=== PATIENT | female | born 1975 | race Caucasian/White ===

== ENCOUNTER 2016-06-25 08:18 | Emergency (ER) | payer OTHER ==
[2016-06-25 08:28] VITALS: BP 102/58; TEMP 97.7; O2SAT 90
[2016-06-25] MEDS ORDERED: methylPREDNISolone SODIUM SUC 125 MG/2 ML VIAL IV ONE (08:36)
[2016-06-25] MEDS ORDERED: methylPREDNISolone SODIUM SUC 125 MG/2 ML VIAL ONE (08:36)
--- NOTE | 2016-06-25 08:49 | ED.PDOC ---
History of Present Illness - General Chief Complaint: Respiratory Problem Stated Complaint: shortness of breath, cough Time Seen by Provider: 06/25/16 08:39 Source: patient Exam Limitations: no limitations - History of Present Illness Initial Comments: Patient presents with increasing dyspnea over the past three days. Two days ago she was diagnosed with pneumonia and started on cephalexin. She says she has not gotten better. Her dyspnea became worse this morning so she called EMS. She says she has cough productive of green sputum. No hemoptysis. She doesn't think she has had a fever. Smokes just less than a pack of cigarettes per day and continues to smoke. No chest pain. No cardiac history nor diabetes. No hx of bipedal edema. No other complaints. Timing/Duration: other - 3 days Severity: moderate Improving Factors: nothing Worsening Factors: nothing Associated Symptoms: cough, shortness of breath Allergies/Adverse Reactions: Allergies Aspirin Allergy (Severe, Verified 06/25/16 08:29) Anaphylaxis Home Medications: Ambulatory Orders Fluoxetine HCl [Prozac] 40 mg PO QAM 11/21/15 Levothyroxine Sodium [Synthroid] 0.125 mg PO 0700 11/21/15 Trazodone HCl 100 mg PO BEDTIME 11/21/15 Gabapentin 600 mg PO TID 01/17/16 Hydroxyzine Pamoate [Vistaril] 50 mg PO Q4H 03/14/16 Quetiapine Fumarate [Seroquel] 400 mg PO BID 03/14/16 Cyclobenzaprine HCl [Flexeril] 10 mg PO TID PRN 05/12/16 Docusate Sodium 100 mg PO DAILY 05/12/16 HYDROcodone 10MG/APAP 325MG [[place] 10/325] 1 ea PO Q4H PRN 05/12/16 Linaclotide [Linzess] 145 mcg PO DAILY 05/12/16 Promethazine HCl 25 mg FL Q6H PRN 05/12/16 Cephalexin Monohydrate [Keflex] 500 mg PO BID 06/25/16 Review of Systems - Review of Systems Constitutional: States: no symptoms reported EENTM: States: no symptoms reported Respiratory: States: see HPI Cardiology: States: no symptoms reported Gastrointestinal/Abdominal: States: no symptoms reported Genitourinary: States: no symptoms reported Musculoskeletal: States: no symptoms reported Skin: States: no symptoms reported Neurological: States: no symptoms reported Endocrine: States: no symptoms reported Hematologic/Lymphatic: States: no symptoms reported Past Medical History (General) - Patient Medical History Hx Seizures: No Hx Stroke: No Hx Dementia: No Hx Asthma: No Hx of COPD: No Hx Cardiac Disorders: No Hx Congestive Heart Failure: No Hx Pacemaker: No Hx Hypertension: No Hx Thyroid Disease: No Hx Diabetes: No Hx Gastroesophageal Reflux: No Hx Renal Disease: No Hx Cancer: No Hx of HIV: No Hx Hepatitis C: No Hx MRSA: No MRSA Source:: Wound - Vaccination History Hx Tetanus, Diphtheria Vaccination: No Hx Influenza Vaccination: Yes Hx Pneumococcal Vaccination: No - Social History Hx Tobacco Use: Yes Hx Chewing Tobacco Use: No Hx Alcohol Use: No Hx Substance Use: Yes Hx Substance Use Treatment: No Hx Depression: Yes Hx Physical Abuse: No Hx Emotional Abuse: No Hx Suspected Abuse: No - Female History Patient : No Family Medical History - Family History Mother Family History: No Known Name: Shari Dickey Cheestephaniakehinde Age (years): 66 Living Status: Still Living Hx Family Asthma: No Hx Family Congestive Heart Failure: No Hx Family Hypertension: No Hx Family Stroke: No Hx Cardiac Disease: No Hx Family Diabetes: No Hx Family Cancer: No Hx Family;Other: Depression Physical Exam - Physical Exam General Appearance: Alert Eye Exam: bilateral normal Ears, Nose, Throat: normal ENT inspection Neck: non-tender, full range of motion, supple Respiratory: other - distant breath sounds, occasional scattered expiratory wheezes, no accessory muscle use Cardiovascular/Chest: regular rate, rhythm Gastrointestinal/Abdominal: normal bowel sounds, non tender, soft Extremity: no pedal edema Skin Exam: normal color Lymphatic: no adenopathy Progress - Progress Progress: 06/25/16 10:56 CXR showed peribronchial thickening. Duonebs x one resolved the dyspnea. Normal wbc. Unremarkable bnp. Negative troponin. Patient has nebulizer at home and will use q2-4 hours prn. Continue to take home medications. Departure - Departure Clinical Impression: Dyspnea Disposition: Discharge to Home or Self Care Condition: Good Departure Forms: ED Discharge - Pt. Copy, Patient Portal Self Enrollment Diet: resume usual diet Activity: increase activity as tolerated Home Medications: Ambulatory Orders Fluoxetine HCl [Prozac] 40 mg PO QAM 11/21/15 Levothyroxine Sodium [Synthroid] 0.125 mg PO 0700 11/21/15 Trazodone HCl 100 mg PO BEDTIME 11/21/15 Gabapentin 600 mg PO TID 01/17/16 Hydroxyzine Pamoate [Vistaril] 50 mg PO Q4H 03/14/16 Quetiapine Fumarate [Seroquel] 400 mg PO BID 03/14/16 Cyclobenzaprine HCl [Flexeril] 10 mg PO TID PRN 05/12/16 Docusate Sodium 100 mg PO DAILY 05/12/16 HYDROcodone 10MG/APAP 325MG [[place] 10/325] 1 ea PO Q4H PRN 05/12/16 Linaclotide [Linzess] 145 mcg PO DAILY 05/12/16 Promethazine HCl 25 mg FL Q6H PRN 05/12/16 Cephalexin Monohydrate [Keflex] 500 mg PO BID 06/25/16 Additional Instructions: Continue your current medications. Continue the antibiotic that was prescribe for you. You may use your nebulizer every 2-4 hours as needed for shortness of breath. Return to your regular doctor or the ER if symptoms worsen or have not resolved in five days.
[2016-06-25] MEDS ORDERED: IPRATROPIUM/ALBUTEROL 3 ML VIAL NEB ONE (08:50)
[2016-06-25] MEDS ORDERED: SODIUM CHLORIDE 0.9% 250ML 250 ML IVS ONE (08:51)
--- NOTE | 2016-06-25 09:17 | RAD ---
EXAM DESCRIPTION: XR CHEST 1 VIEW CLINICAL HISTORY: 41 y/o F, cough, difficulty breathing, O2 sat 90% COMPARISON: 01/20/2016. TECHNIQUE: Frontal radiograph of the chest. FINDINGS: There is mild peribronchial thickening. The heart is normal in size. There is no pneumothorax or pleural effusion. Spinal stimulator leads are noted. IMPRESSION: Mild peribronchial thickening. Electronically signed by: Juan Pablo Montemayor MD 06/25/2016 09:15
== END 2016-06-25 11:04 | disposition home or self-care (01) ==
LOC: ER 08:18
DX: R06.00 Dyspnea, unspecified (principal); F17.210 Nicotine dependence, cigarettes, uncomplicated; F32.9 Major depressive disorder, single episode, unspecified; Z88.6 Allergy status to analgesic agent; Z79.899 Other long term (current) drug therapy
CPT/HCPCS: 36415; 71010; 80053; 82550; 82553; 83605; 83880; 84436; 84443; 84484; 85025; 85379; 87040; J2930; J7050; J7620

== ENCOUNTER → 2016-08-14 | Outpatient (CLI) | payer OTHER | END | disposition home or self-care (01) | LOC: YCFC.O 10:59 | PROVIDERS: ATTEND Anesthesiology Pain Medicine | DX: Z79.891 Long term (current) use of opiate analgesic (principal) ==

== ENCOUNTER → 2016-08-21 | Outpatient (CLI) | payer OTHER | END | disposition home or self-care (01) | LOC: GMAM 11:05 | PROVIDERS: ATTEND Family Medicine | DX: E03.9 Hypothyroidism, unspecified (principal) ==

== ENCOUNTER 2016-09-07 13:33 | Emergency (ER) | payer OTHER ==
[2016-09-07 14:16] VITALS: BP 89/63; TEMP 97.8; O2SAT 94
[2016-09-07] MEDS ORDERED: KETOROLAC TROMETHAMINE INJ 30 MG/ML VIAL IM ONE (14:31)
--- NOTE | 2016-09-07 14:47 | ED.PDOC ---
History of Present Illness - General Chief Complaint: Back Pain or Injury Stated Complaint: low back pain Time Seen by Provider: 09/07/16 14:15 Source: patient Exam Limitations: no limitations - History of Present Illness Initial Comments: Patient presents with acute on chronic low back pain. Pain is on the right lumbar area with radiation down the right leg. Worse with movement, better with rest. Shooting in nature. Multiple previous episodes. Patient is on a fentanyl patch and flexeril. She wants tramadol and "a shot of something". No other complaints. Timing/Duration: changing over time, intermittent Severity: moderate Improving Factors: rest Worsening Factors: movement Associated Symptoms: denies symptoms Allergies/Adverse Reactions: Allergies Aspirin Allergy (Severe, Verified 06/25/16 08:29) Anaphylaxis Home Medications: Ambulatory Orders Fluoxetine HCl [Prozac] 40 mg PO QAM 11/21/15 Levothyroxine Sodium [Synthroid] 0.137 mg PO 0700 11/21/15 Trazodone HCl 100 mg PO BEDTIME 11/21/15 Quetiapine Fumarate [Seroquel] 400 mg PO BID 03/14/16 Aripiprazole [Abilify] 10 mg PO DAILY 09/07/16 Fentanyl [Duragesic] 12 mcg TD Q72H 09/07/16 Pregabalin [Lyrica] 200 mg PO BID 09/07/16 Review of Systems - Review of Systems Constitutional: States: no symptoms reported EENTM: States: no symptoms reported Respiratory: States: no symptoms reported Cardiology: States: no symptoms reported Gastrointestinal/Abdominal: States: no symptoms reported Genitourinary: States: no symptoms reported Musculoskeletal: States: see HPI Skin: States: no symptoms reported Neurological: States: see HPI Endocrine: States: no symptoms reported Past Medical History (General) - Patient Medical History Hx Seizures: No Hx Stroke: No Hx Dementia: No Hx Asthma: No Hx of COPD: No Hx Cardiac Disorders: No Hx Congestive Heart Failure: No Hx Pacemaker: No Hx Hypertension: No Hx Thyroid Disease: No Hx Diabetes: No Hx Gastroesophageal Reflux: No Hx Renal Disease: No Hx Cancer: No Hx of HIV: No Hx Hepatitis C: No Hx MRSA: No MRSA Source:: Wound - Vaccination History Hx Tetanus, Diphtheria Vaccination: No Hx Influenza Vaccination: Yes Hx Pneumococcal Vaccination: No - Social History Hx Tobacco Use: Yes Hx Chewing Tobacco Use: No Hx Alcohol Use: No Hx Substance Use: Yes Hx Substance Use Treatment: No Hx Depression: Yes Hx Physical Abuse: No Hx Emotional Abuse: No Hx Suspected Abuse: No - Female History Patient : No Family Medical History - Family History Mother Family History: No Known Name: Shari Murdock Age (years): 66 Living Status: Still Living Hx Family Asthma: No Hx Family Congestive Heart Failure: No Hx Family Hypertension: No Hx Family Stroke: No Hx Cardiac Disease: No Hx Family Diabetes: No Hx Family Cancer: No Hx Family;Other: Depression Physical Exam - Physical Exam General Appearance: Alert Ears, Nose, Throat: normal ENT inspection Neck: non-tender, full range of motion, supple Respiratory: lungs clear Cardiovascular/Chest: normal peripheral pulses, regular rate, rhythm Gastrointestinal/Abdominal: normal bowel sounds, non tender, soft Back Exam: other - Staight and cross leg raises positive. Right lower back TTP but spinous process NTTP. Heel walking worsens pain. Progress - Progress Progress: 09/07/16 14:49 Toradol 30 mg IM x one. Departure - Departure Clinical Impression: Low back pain Disposition: Discharge to Home or Self Care Condition: Good Departure Forms: ED Discharge - Pt. Copy, Patient Portal Self Enrollment Diet: resume usual diet Activity: increase activity as tolerated Home Medications: Ambulatory Orders Fluoxetine HCl [Prozac] 40 mg PO QAM 11/21/15 Levothyroxine Sodium [Synthroid] 0.137 mg PO 0700 11/21/15 Trazodone HCl 100 mg PO BEDTIME 11/21/15 Quetiapine Fumarate [Seroquel] 400 mg PO BID 03/14/16 Aripiprazole [Abilify] 10 mg PO DAILY 09/07/16 Fentanyl [Duragesic] 12 mcg TD Q72H 09/07/16 Pregabalin [Lyrica] 200 mg PO BID 09/07/16 Additional Instructions: Follow up with your primary care physician for further pain management.
== END 2016-09-07 15:08 | disposition home or self-care (01) ==
LOC: ER 13:33
DX: M54.5 Low back pain (principal); Z87.891 Personal history of nicotine dependence; Z88.6 Allergy status to analgesic agent; Z79.899 Other long term (current) drug therapy

== ENCOUNTER → 2016-10-04 | Outpatient (CLI) | payer OTHER | END | disposition home or self-care (01) | LOC: GMAM 17:25 | PROVIDERS: ATTEND Family Medicine | DX: E03.9 Hypothyroidism, unspecified (principal) ==

== ENCOUNTER 2016-10-08 17:10 | Emergency (ER) | payer OTHER ==
[2016-10-08 17:26] VITALS: BP 107/74; TEMP 98.4; O2SAT 90
[2016-10-08] MEDS ORDERED: levoFLOXacin 500 MG TAB PO ONE (17:37)
--- NOTE | 2016-10-08 17:40 | ED.PDOC ---
History of Present Illness - General Chief Complaint: Skin/Abrasion/Tear Stated Complaint: boil Time Seen by Provider: 10/08/16 17:13 Source: patient, RN notes reviewed, Vital Signs reviewed Exam Limitations: no limitations - History of Present Illness Initial Comments: Patient with boil in her right groin off and on for months. She just finished 10 days of Bactrim. Concerned it needs to be drained. Timing/Duration: intermittent Severity: moderate Location: genitalia Improving Factors: nothing Worsening Factors: movement Associated Symptoms: swelling/mass/lumps Allergies/Adverse Reactions: Allergies Aspirin Allergy (Severe, Verified 10/08/16 17:26) Anaphylaxis Home Medications: Ambulatory Orders Fluoxetine HCl [Prozac] 40 mg PO QAM 11/21/15 Levothyroxine Sodium [Synthroid] 0.137 mg PO 0700 11/21/15 Trazodone HCl 100 mg PO BEDTIME 11/21/15 Quetiapine Fumarate [Seroquel] 400 mg PO BID 03/14/16 Aripiprazole [Abilify] 10 mg PO DAILY 09/07/16 Fentanyl [Duragesic] 12 mcg TD Q72H 09/07/16 Pregabalin [Lyrica] 200 mg PO BID 09/07/16 Levofloxacin [Levaquin] 500 mg PO DAILY #7 tab 10/08/16 Morphine Sulfate [Morphine Sulfate ER] 30 mg PO BID 10/08/16 Tylenol W/Codeine #4 60 - 300 mg PO BID 10/08/16 Review of Systems - Review of Systems Constitutional: States: no symptoms reported Genitourinary: States: see HPI, pain Skin: States: see HPI All other Systems: No Change from Baseline Past Medical History (General) - Patient Medical History Hx Seizures: No Hx Stroke: No Hx Dementia: No Hx Asthma: No Hx of COPD: No Hx Cardiac Disorders: No Hx Congestive Heart Failure: No Hx Pacemaker: No Hx Hypertension: No Hx Thyroid Disease: No Hx Diabetes: No Hx Gastroesophageal Reflux: No Hx Renal Disease: No Hx Cancer: No Hx of HIV: No Hx Hepatitis C: No Hx MRSA: No MRSA Source:: Wound Surgical History: no surgical history - Vaccination History Hx Tetanus, Diphtheria Vaccination: No Hx Influenza Vaccination: Yes Hx Pneumococcal Vaccination: No Immunizations Up to Date: Yes - Social History Hx Tobacco Use: Yes Hx Chewing Tobacco Use: No Hx Alcohol Use: Yes Hx Substance Use: Yes Hx Substance Use Treatment: No Hx Depression: Yes Feels Threatened In Home Enviroment: No Feels Threatened In a Relationship: No Hx Physical Abuse: No Hx Emotional Abuse: No Hx Suspected Abuse: No - Female History Patient is a Female of Child Bearing Age (10 -59 yrs old): Yes Patient : No Family Medical History - Family History Mother Family History: No Known Name: Shari Murdock Age (years): 66 Living Status: Still Living Hx Family Asthma: No Hx Family Congestive Heart Failure: No Hx Family Hypertension: No Hx Family Stroke: No Hx Cardiac Disease: No Hx Family Diabetes: No Hx Family Cancer: No Hx Family;Other: Depression Physical Exam - Physical Exam General Appearance: Alert, Comfortable, No apparent distress, Well Developed, Well Groomed, Well Hydrated, Well Nourished Cardiovascular/Chest: no edema Respiratory: no respiratory distress Neurologic: alert, normal mood/affect, oriented x 3 Skin Exam: warm/dry, normal color Skin Problem Location: other - R groin Skin Character: erythema, tenderness, thickening, warm, other - Right groin: ~ dime sized area of erythema, tenderness and induration with mild surrounding erythema. No fluctuane or abscess appreciated. Lymphatic: no adenopathy Progress - EKG/XRAY/CT CT Ordered: No Departure - Departure Clinical Impression: Cellulitis of groin, right Time of Disposition: 17:43 Disposition: Discharge to Home or Self Care Condition: Good Departure Forms: ED Discharge - Pt. Copy, Patient Portal Self Enrollment Instructions: DI for Cellulitis -- Adult Diet: resume usual diet Activity: increase activity as tolerated Referrals: Venancio Santana MD [Primary Care Provider] - 1-2 Weeks Prescriptions: Levofloxacin [Levaquin] 500 mg PO DAILY #7 tab Home Medications: Ambulatory Orders Fluoxetine HCl [Prozac] 40 mg PO QAM 11/21/15 Levothyroxine Sodium [Synthroid] 0.137 mg PO 0700 11/21/15 Trazodone HCl 100 mg PO BEDTIME 11/21/15 Quetiapine Fumarate [Seroquel] 400 mg PO BID 03/14/16 Aripiprazole [Abilify] 10 mg PO DAILY 09/07/16 Fentanyl [Duragesic] 12 mcg TD Q72H 09/07/16 Pregabalin [Lyrica] 200 mg PO BID 09/07/16 Levofloxacin [Levaquin] 500 mg PO DAILY #7 tab 10/08/16 Morphine Sulfate [Morphine Sulfate ER] 30 mg PO BID 10/08/16 Tylenol W/Codeine #4 60 - 300 mg PO BID 10/08/16 Additional Instructions: Hot soaks/compresses 3-5X/day
== END 2016-10-08 17:56 | disposition home or self-care (01) ==
LOC: ER 17:10
DX: L03.314 Cellulitis of groin (principal); Z88.6 Allergy status to analgesic agent; Z79.899 Other long term (current) drug therapy; Z87.891 Personal history of nicotine dependence

== ENCOUNTER → 2016-10-11 | Outpatient (CLI) | payer OTHER | END | disposition home or self-care (01) | LOC: GMAM 16:48 | PROVIDERS: ATTEND Family Medicine | DX: L02.91 Cutaneous abscess, unspecified (principal) ==

== ENCOUNTER 2016-10-15 17:59 | Inpatient (IN) | payer OTHER ==
[2016-10-15] MEDS ORDERED: IPRATROPIUM/ALBUTEROL 3 ML VIAL NEB ONE (18:24)
[2016-10-15] MEDS ORDERED: ACETAMINOPHEN 500 MG TAB PO ONE (18:24)
--- NOTE | 2016-10-15 18:28 | ED.PDOC ---
History of Present Illness - General Chief Complaint: Respiratory Problem Stated Complaint: difficulty breathing Time Seen by Provider: 10/15/16 18:23 Source: patient, RN notes reviewed, Vital Signs reviewed, EMS Exam Limitations: no limitations - History of Present Illness Initial Comments: Patient comes in with c/o not being able to breath because her lungs hurt. She is concerned she has pneumonia again. Symptoms started last night. EMS reported O2 sat of 89% on room air, improved with O2 and Xopenex treatment. Timing/Duration: 24 hours Severity: moderate Activities at Onset: none Possible Cause: unknown cause Improving Factors: nothing Worsening Factors: nothing Associated Symptoms: cough, fever, weakness, wheezing Allergies/Adverse Reactions: Allergies Aspirin Allergy (Severe, Verified 10/08/16 17:26) Anaphylaxis Home Medications: Ambulatory Orders Fluoxetine HCl [Prozac] 40 mg PO QAM 11/21/15 Levothyroxine Sodium [Synthroid] 0.137 mg PO 0700 11/21/15 Trazodone HCl 100 mg PO BEDTIME 11/21/15 Quetiapine Fumarate [Seroquel] 400 mg PO BID 03/14/16 Aripiprazole [Abilify] 10 mg PO DAILY 09/07/16 Fentanyl [Duragesic] 12 mcg TD Q72H 09/07/16 Pregabalin [Lyrica] 200 mg PO BID 09/07/16 Levofloxacin [Levaquin] 500 mg PO DAILY #7 tab 10/08/16 Morphine Sulfate [Morphine Sulfate ER] 30 mg PO BID 10/08/16 Tylenol W/Codeine #4 60 - 300 mg PO BID 10/08/16 Review of Systems - Review of Systems Constitutional: States: chills, fever, malaise EENTM: States: no symptoms reported Respiratory: States: see HPI, cough, short of breath, wheezing Cardiology: States: no symptoms reported Gastrointestinal/Abdominal: States: no symptoms reported Musculoskeletal: States: no symptoms reported Skin: States: no symptoms reported Neurological: States: no symptoms reported All other Systems: No Change from Baseline Past Medical History (General) - Patient Medical History Hx Seizures: No Hx Stroke: No Hx Dementia: No Hx Asthma: No Hx of COPD: No Hx Cardiac Disorders: No Hx Congestive Heart Failure: No Hx Pacemaker: No Hx Hypertension: No Hx Thyroid Disease: No Hx Diabetes: No Hx Gastroesophageal Reflux: No Hx Renal Disease: No Hx Cancer: No Hx of HIV: No Hx Hepatitis C: No Hx MRSA: No MRSA Source:: Wound - Vaccination History Hx Tetanus, Diphtheria Vaccination: No Hx Influenza Vaccination: Yes Hx Pneumococcal Vaccination: No - Social History Hx Tobacco Use: Yes Hx Chewing Tobacco Use: No Hx Alcohol Use: Yes Hx Substance Use: Yes Hx Substance Use Treatment: No Hx Depression: Yes Hx Physical Abuse: No Hx Emotional Abuse: No Hx Suspected Abuse: No - Female History Patient is a Female of Child Bearing Age (10 -59 yrs old): No Patient : No Family Medical History - Family History Mother Family History: No Known Name: Shari Murdock Age (years): 66 Living Status: Still Living Hx Family Asthma: No Hx Family Congestive Heart Failure: No Hx Family Hypertension: No Hx Family Stroke: No Hx Cardiac Disease: No Hx Family Diabetes: No Hx Family Cancer: No Hx Family;Other: Depression Physical Exam - Physical Exam General Appearance: Alert, Ill Appearing, Well Developed, Well Groomed, Well Hydrated, Well Nourished Neck: non-tender, full range of motion, supple, normal inspection Respiratory: chest non-tender, no respiratory distress, no accessory muscle use , wheezing, expiration Cardiovascular/Chest: regular rate, rhythm, no gallop, no JVD, no murmur Gastrointestinal/Abdominal: non tender, soft Extremity: normal range of motion, non-tender, normal inspection Neurologic: alert, normal mood/affect, oriented x 3 Skin Exam: normal color, warm/dry Progress - Progress Progress: 10/15/16 19:[address] Mohamud. Will admit for IV antibiotics and pulmonary toilet. - Results/Orders Results/Orders: Laboratory Tests 10/15/16 10/15/16 18:40 18:40 WBC 20.4 H* RBC 4.34 Hgb 13.1 Hct 39.6 MCV 91.1 MCH 30.1 MCHC 33.1 RDW 14.3 Plt Count 481 H MPV 7.4 Absolute Neuts (auto) Not Reportable Absolute Lymphs (auto) Not Reportable Absolute Monos (auto) Not Reportable Absolute Eos (auto) Not Reportable Neutrophils % Not Reportable Neutrophils % (Manual) 87.0 Lymphocytes % Not Reportable Lymphocytes % (Manual) 7.0 Monocytes % Not Reportable Monocytes % (Manual) 4.0 Eosinophils % Not Reportable Basophils % Not Reportable Band Neutrophils 1.0 Eosinophils 1.0 Platelet Estimate Increased Normal RBC Morphology Normal rbc morph Sodium 137 Potassium 3.8 Chloride 104 Carbon Dioxide 24 Anion Gap 12.8 BUN < 5 L Creatinine 0.71 BUN/Creatinine Ratio 7.0 L Random Glucose 86 Serum Osmolality 270.4 L Calcium 8.7 Total Bilirubin 0.3 AST 26 ALT 19 Alkaline Phosphatase 83 Serum Total Protein 7.2 Albumin 4.0 Globulin 3.2 Albumin/Globulin Ratio 1.3 Active Orders - 24 Hr 10/15/16 19:18 Azithromycin IV [Zithromax IV] 500 mg Sodium Chloride 0.9% 250Ml [NS 250ml] 250 ml IVPB ONCE cefTRIAXone SODIUM [Rocephin] 1 gm Sodium Chl 0.9% 50Ml Min-Bag+ [NS 50ml MINI -BAG+] 50 ml IVPB ONCE INFLUENZA A & B BY PCR Stat UA [URINALYSIS] Stat - EKG/XRAY/CT XRAY: chest - Peribronchial thickening R>L o/w nl Departure - Departure Clinical Impression: Hypoxia Pneumonia Qualifiers: Pneumonia type: due to unspecified organism Laterality: bilateral Lung location : lower lobe of lung Qualified Code(s): J16.8 - Pneumonia due to other specified infectious organisms Time of Disposition: 19:24 Disposition: Admit Patient Condition: Fair Departure Forms: ED Discharge - Pt. Copy, Patient Portal Self Enrollment Referrals: Venancio Santana MD [Primary Care Provider] - 1-2 Weeks Home Medications: Ambulatory Orders Fluoxetine HCl [Prozac] 40 mg PO QAM 11/21/15 Levothyroxine Sodium [Synthroid] 0.137 mg PO 0700 11/21/15 Trazodone HCl 100 mg PO BEDTIME 11/21/15 Quetiapine Fumarate [Seroquel] 400 mg PO BID 03/14/16 Aripiprazole [Abilify] 10 mg PO DAILY 09/07/16 Fentanyl [Duragesic] 12 mcg TD Q72H 09/07/16 Pregabalin [Lyrica] 200 mg PO BID 09/07/16 Levofloxacin [Levaquin] 500 mg PO DAILY #7 tab 10/08/16 Morphine Sulfate [Morphine Sulfate ER] 30 mg PO BID 10/08/16 Tylenol W/Codeine #4 60 - 300 mg PO BID 10/08/16 Decision To Admit - Decistion To Admit Decision to Admit Reason: Admit from ER - Pneumonia Decision to Admit Date: 10/15/16 Decision to Admit Time: 19:15
--- NOTE | 2016-10-15 18:51 | RAD ---
EXAM: Two view chest. INDICATION: Chest pain. COMPARISON: Chest x-ray: 06/25/2016. FINDINGS: The lungs are underinflated with peribronchial thickening, right greater than left. The heart is normal in size. There is no pneumothorax or pleural effusion. Spinal stimulator leads are noted. There is no acute fracture IMPRESSION: Peribronchial thickening, right greater than left. This may represent a viral process or atypical pneumonia. Electronically signed by: Juan Pablo Montemayor MD 10/15/2016 6:51 PM CDT
[2016-10-15] MEDS ORDERED: cefTRIAXone SODIUM 1 GM in SODIUM CHL 0.9% 50ML MIN-BAG+ 50 ML IVPB ONE (19:18)
[2016-10-15] MEDS ORDERED: AZITHROMYCIN IV 500 MG in SODIUM CHLORIDE 0.9% 250ML 250 ML IVPB ONE (19:18)
[2016-10-15] MEDS ORDERED: cefTRIAXone SODIUM 1 GM VIAL ONE (19:29)
[2016-10-15] MEDS ORDERED: SODIUM CHL 0.9% 50ML MIN-BAG+ 50 ML IVPB ONE (19:30)
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
[2016-10-15] MEDS ORDERED: AZITHROMYCIN IV 500 MG VIAL IVPB ONE (20:50)
[2016-10-15] MEDS ORDERED: SODIUM CHLORIDE 0.9% 250ML 250 ML ONE (20:50)
[2016-10-15] MEDS ORDERED: ONDANSETRON INJ 4 MG/2 ML VIAL IV PRN (20:52)
[2016-10-15] MEDS ORDERED: LEVALBUTEROL NEBS 1.25 MG/3 ML VIAL INH PRN (20:52)
[2016-10-15] MEDS ORDERED: IBUPROFEN 400 MG TAB PO PRN (20:52)
[2016-10-15] MEDS ORDERED: MAGNESIUM HYDROXIDE 30 ML UD PO PRN (20:52)
[2016-10-15] MEDS ORDERED: QUETIAPINE FUMARATE 400 MG PO SCH (21:00)
[2016-10-15] MEDS ORDERED: MORPHINE SULFATE 30 MG PO SCH (21:00)
[2016-10-15] MEDS ORDERED: FENTANYL 12 MCG TD SCH (21:00)
[2016-10-15] MEDS ORDERED: PREGABALIN 200 MG PO SCH (21:00)
[2016-10-15] MEDS ORDERED: QUEtiapine FUMARATE 100 MG TAB ONE (21:33)
[2016-10-15] MEDS ORDERED: PREGABALIN 100 MG CAP ONE (21:34)
[2016-10-15] MEDS ORDERED: MORPHINE ER 30 MG TAB ONE (21:34)
[2016-10-15] MEDS: IPRATROPIUM/ALBUTEROL 3 ML VIAL INH SCH (21:37)
[2016-10-15] MEDS: traZODone HCL 100 MG TAB PO SCH (22:04)
[2016-10-15] MEDS: IV SET AND CAP CHANGE INJ INJ SCH (22:06)
[2016-10-15] MEDS: ENOXAPARIN SODIUM 40 MG/0.4 ML SYG SUBCU SCH (22:06)
[2016-10-15] MEDS: KCL 20 MEQ/NS 1,000 ML IVS PRN (23:18)
[2016-10-16] MEDS ORDERED: cefTRIAXone SODIUM 1 GM VIAL ONE ×2 (06:01→17:28)
[2016-10-16] MEDS ORDERED: SODIUM CHL 0.9% 50ML MIN-BAG+ 50 ML IVPB ONE ×2 (06:01→17:28)
[2016-10-16] MEDS ORDERED: LEVOTHYROXINE SODIUM 0.112 MG TAB ONE (06:02)
[2016-10-16] MEDS ORDERED: LEVOTHYROXINE SODIUM 0.025 MG TAB ONE (06:02)
[2016-10-16] MEDS: OMEPRAZOLE CAP 20 MG CAP PO SCH (06:25)
[2016-10-16] MEDS: cefTRIAXone SODIUM 1 GM in SODIUM CHL 0.9% 50ML MIN-BAG+ 50 ML IVPB SCH ×2 (06:26→18:31)
--- NOTE | 2016-10-16 06:54 | RAD ---
Clinical History : Pneumonia , MAIN Exam : PA and lateral views of the chest 10/16/2016 7:00 AM CDT Comparisons : PA and lateral views of the chest October 15, 2016 Findings : There is improving peribronchial thickening with patchy airspace opacities bilaterally There is no pleural effusion. The heart is stable in size. The mediastinal contours are normal in appearance. The thoracic spine is age appropriate. The shoulders are unremarkable. Limited evaluation of the upper abdomen demonstrates no gross abnormalities. Impression: Improving peribronchial thickening and patchy airspace opacities bilaterally, likely representing infectious pneumonia. Electronically signed by: Tonia Morel MD 10/16/2016 6:53 AM CDT
[2016-10-16] MEDS ORDERED: LEVOTHYROXINE SODIUM 0.1 MG TAB PO SCH (07:00)
[2016-10-16] MEDS: POTASSIUM CHLORIDE 10 MEQ TAB PO SCH (08:11)
[2016-10-16] MEDS: IPRATROPIUM/ALBUTEROL 3 ML VIAL INH SCH ×4 (09:15→19:58)
[2016-10-16] MEDS ORDERED: MORPHINE ER 30 MG TAB ONE (09:23)
[2016-10-16] MEDS: PREGABALIN 100 MG CAP PO SCH ×2 (09:25→21:22)
[2016-10-16] MEDS: QUEtiapine FUMARATE 100 MG TAB PO SCH ×2 (09:26→21:22)
[2016-10-16] MEDS: diphenhydrAMINE HCL 25 MG CAP PO SCH ×2 (09:26→21:22)
[2016-10-16] MEDS: MORPHINE ER 30 MG TAB PO SCH ×2 (09:26→21:22)
[2016-10-16] MEDS: ARIPiprazole 5 MG TAB PO SCH (09:26)
[2016-10-16] MEDS: FLUoxetine HCL 20 MG CAP PO SCH (09:26)
--- NOTE | 2016-10-16 11:16 | PN ---
DATE: 10/16/16 SUBJECTIVE: The patient is sitting up in the bed and in many ways appears to be improved with improved coloration. She is on low flow oxygen. She has been getting some rest, but yet will increase activity today and observe closely. She still has a cough, yet less sputum production. Still awaiting a sputum specimen to lab. She continues an antibiotic treatment course and pulmonary hygiene. OBJECTIVE: VITAL SIGNS: Afebrile today. Pulse 96. Blood pressure 102/70. Pulse oximetry 93% on 2 liters, awaiting ambulation study. LUNGS: Persistent expiratory slowing with rhonchi and some wheezing on exhalation primarily. HEART: Tones are regular. ABDOMEN: Soft. EXTREMITIES: Within normal limits. NEUROLOGIC: The patient is awake and alert. RADIOLOGY: Repeat x-ray reveals significant improvement in the perihilar infiltrative process with peribronchial prominence, suggesting some improvement in the pneumonia and infectious condition. LABORATORY: White count has come down from 20,400 to 16,400 with improvement also in neutrophils down to 76% and no bands. Hemoglobin 12.1 after hydration. Chemistries show potassium down from 3.8 to 3.5 with supplementation initiated. Kidney function within normal limits. Beta natriuretic peptide 39. TSH 7.6, suggesting somewhat a need for increased thyroid supplementation. ASSESSMENT: 1. Pneumonia, atypical presentation, showing some radiographic and clinical improvement, probable community acquired, cultures pending, being treated with Rocephin and azithromycin. 2. Leukocytosis, showing some improvement. 3. Febrile illness, showing improvement. 4. Hypoxia, awaiting ambulation studies. Continue with supplementation. 5. Hypokalemia with supplementation initiated. 6. Chronic back pain, being followed in the pain clinic. 7. Hypothyroidism, on supplementation with dosing to be adjusted. PLAN: The patient will try to get in touch with Dr. Mccarthy in the pain clinic at [facility] tomorrow and he will be able to assist with her ongoing care when he is aware of her presence in the hospital. Continue current treatment program. Increase activity level. Await ambulation studies to evaluate lung function. Consider pulmonary function studies when feeling much improved, which can be done as an outpatient with Dr. Santana's office with followup. #[id number] [facility]
[2016-10-16] MEDS: KCL 20 MEQ/NS 1,000 ML IVS PRN (12:32)
[2016-10-16] MEDS: HYDROcodone 5MG/APAP 325MG 1 EA TAB PO PRN (14:05)
[2016-10-16] MEDS: AZITHROMYCIN 250 MG TAB PO SCH (18:09)
[2016-10-16] MEDS ORDERED: NON-FORMULARY MEDICATION 1 EA MIS (Alprazolam [Xanax] 1 MG) PO SCH (18:45)
[2016-10-16] MEDS ORDERED: ALPRAZolam 0.5 MG TAB ONE ×2 (18:50→18:51)
[2016-10-16] MEDS: ALPRAZolam 0.5 MG TAB PO SCH (19:00)
[2016-10-16] MEDS ORDERED: ALPRAZolam 0.5 MG TAB PO SCH (21:00)
[2016-10-16] MEDS: traZODone HCL 100 MG TAB PO SCH (21:22)
[2016-10-16] MEDS: ENOXAPARIN SODIUM 40 MG/0.4 ML SYG SUBCU SCH (21:23)
[2016-10-16] MEDS: BENZONATATE PERLES 100 MG CAP PO PRN (21:24)
[2016-10-16] MEDS: SODIUM CHLORIDE 0.9% (FLUSH) 10 ML SYG IV PRN (23:36)
[2016-10-17] MEDS: HYDROcodone 5MG/APAP 325MG 1 EA TAB PO PRN ×2 (01:43→22:50)
[2016-10-17] MEDS ORDERED: ACETAMINOPHEN 325 MG TAB ONE (03:49)
[2016-10-17] MEDS: KCL 20 MEQ/NS 1,000 ML IVS PRN ×2 (03:56→18:14)
[2016-10-17] MEDS ORDERED: SODIUM CHL 0.9% 50ML MIN-BAG+ 50 ML IVPB ONE ×2 (05:35→17:12)
[2016-10-17] MEDS ORDERED: cefTRIAXone SODIUM 1 GM VIAL ONE ×2 (05:36→17:12)
[2016-10-17] MEDS: OMEPRAZOLE CAP 20 MG CAP PO SCH (06:10)
[2016-10-17] MEDS: cefTRIAXone SODIUM 1 GM in SODIUM CHL 0.9% 50ML MIN-BAG+ 50 ML IVPB SCH ×2 (06:11→18:37)
[2016-10-17] MEDS ORDERED: LEVOTHYROXINE SODIUM 0.025 MG TAB PO SCH (06:30)
[2016-10-17] MEDS ORDERED: LEVOTHYROXINE SODIUM 0.112 MG TAB PO SCH (06:30)
[2016-10-17] MEDS: POTASSIUM CHLORIDE 10 MEQ TAB PO SCH (07:58)
[2016-10-17] MEDS: IPRATROPIUM/ALBUTEROL 3 ML VIAL INH SCH ×4 (08:40→19:45)
[2016-10-17] MEDS: FLUoxetine HCL 20 MG CAP PO SCH (08:51)
[2016-10-17] MEDS: QUEtiapine FUMARATE 100 MG TAB PO SCH ×2 (08:51→21:23)
[2016-10-17] MEDS: ARIPiprazole 5 MG TAB PO SCH (08:51)
[2016-10-17] MEDS: diphenhydrAMINE HCL 25 MG CAP PO SCH ×2 (08:51→21:25)
[2016-10-17] MEDS: MORPHINE ER 30 MG TAB PO SCH ×2 (08:51→21:22)
[2016-10-17] MEDS: ALPRAZolam 0.5 MG TAB PO SCH (08:51)
[2016-10-17] MEDS: PREGABALIN 100 MG CAP PO SCH ×2 (08:51→21:23)
--- NOTE | 2016-10-17 11:15 | PN ---
DATE: 10/17/16 SUBJECTIVE: The patient is feeling much improved at this time compared to yesterday. Still with a temperature during the night up to 101.3. Still with a cough, but somewhat improved on the Tessalon. Appetite is fairly good. She was able to tolerate an ambulation study and dropped her saturation to 87% on room air and was dyspneic with repeat suggested in the morning. OBJECTIVE: VITAL SIGNS: Again noted, temperature 101.3 at 2 o'clock in the morning. Subsequently blood pressure later this morning 102/67 and pulse oximetry 94% with nasal cannula 1 liter. LUNGS: Some rhonchi, especially upon exhalation and will require special attention to breathing deeply to help prevent atelectasis in the base of her lungs. Recheck chest x-ray and labs in the morning pending. LABORATORY: Laboratory yesterday showed white count dropping down to 16,400 with repeat tomorrow suggested. Urine drug screen initially showed positive opioids and benzodiazepines with some of her home medications. Preliminary sputum culture required further incubation and blood cultures are negative to date. Influenza A/B on admission was negative. ASSESSMENT: 1. Acute pneumonia, atypical presentation, showing radiographic and clinical improvement, probable community acquired, with a bilateral, more prominent on the right perihilar, infiltrates radiographically, cultures pending, being treated with Rocephin and azithromycin preparations. 2. Leukocytosis, showing some improvement with followup tomorrow. 3. Febrile illness, persistent, though somewhat improved. 4. Hypoxia with documented desaturation on ambulation with repeat evaluation tomorrow to show physiologic improvement as treatment course continues. 5. Hypokalemia with supplementation initiated and followup in the morning. 6. Chronic back pain, being followed in the pain clinic with renewal of pain medicines upon discharge. 7. Hypothyroidism, on supplementation, showing a need for an increased amount of supplementation because of an elevated TSH of 7.6. PLAN: The patient had a schedule at 1 PM this afternoon with video Skype conference with Dr. Lopez, who suggests that her home utilization medicines be renewed at the time of her discharge from the hospital. A list of those will be provided by [facility]. In the meantime, continue current treatment awaiting further culture results and repeat lab and x-ray in the morning. Increase activity level today. #[id number] [facility]
[2016-10-17] MEDS: AZITHROMYCIN 250 MG TAB PO SCH (18:37)
[2016-10-17] MEDS: ENOXAPARIN SODIUM 40 MG/0.4 ML SYG SUBCU SCH (21:23)
[2016-10-17] MEDS: traZODone HCL 100 MG TAB PO SCH (21:23)
[2016-10-17] MEDS: BENZONATATE PERLES 100 MG CAP PO PRN (21:28)
[2016-10-17] MEDS: PROMETHAZINE W/CODEINE SYR 5 ML UD PO PRN (23:21)
[2016-10-17] MEDS ORDERED: NICOTINE PATCH 14 MG TD SCH (23:30)
[2016-10-18] MEDS: LEVOTHYROXINE SODIUM 0.075 MG TAB PO SCH (05:55)
[2016-10-18] MEDS: OMEPRAZOLE CAP 20 MG CAP PO SCH (05:56)
[2016-10-18] MEDS ORDERED: SODIUM CHL 0.9% 50ML MIN-BAG+ 50 ML IVPB ONE ×2 (05:57→17:41)
[2016-10-18] MEDS: cefTRIAXone SODIUM 1 GM in SODIUM CHL 0.9% 50ML MIN-BAG+ 50 ML IVPB SCH ×2 (05:57→18:23)
[2016-10-18] MEDS ORDERED: cefTRIAXone SODIUM 1 GM VIAL ONE ×2 (05:57→17:42)
--- NOTE | 2016-10-18 06:54 | RAD ---
EXAM: Two view chest. INDICATION: Chest pain. COMPARISON: Chest x-ray: 10/16/2016. FINDINGS: There are diffuse interstitial and airspace opacities, worse within the right lung. The heart size is stable. There is no pneumothorax. Small pleural effusions may be present. Spinal stimulator leads are noted. The bones are unchanged IMPRESSION: Diffuse interstitial and airspace opacities, worse within the right lung. This likely represents pulmonary edema and/or pneumonia. Electronically signed by: Juan Pablo Montemayor MD 10/18/2016 6:54 AM CDT
[2016-10-18] MEDS: POTASSIUM CHLORIDE 10 MEQ TAB PO SCH (07:49)
[2016-10-18] MEDS: HYDROcodone 5MG/APAP 325MG 1 EA TAB PO PRN ×2 (07:54→15:05)
[2016-10-18] MEDS: IPRATROPIUM/ALBUTEROL 3 ML VIAL INH SCH ×4 (08:02→19:30)
[2016-10-18] MEDS: PREGABALIN 100 MG CAP PO SCH ×2 (08:33→20:47)
[2016-10-18] MEDS: FLUoxetine HCL 20 MG CAP PO SCH (08:33)
[2016-10-18] MEDS: diphenhydrAMINE HCL 25 MG CAP PO SCH ×2 (08:33→20:47)
[2016-10-18] MEDS: ALPRAZolam 0.5 MG TAB PO SCH (08:33)
[2016-10-18] MEDS: ARIPiprazole 5 MG TAB PO SCH (08:33)
[2016-10-18] MEDS: QUEtiapine FUMARATE 100 MG TAB PO SCH ×2 (08:34→20:47)
[2016-10-18] MEDS: MORPHINE ER 30 MG TAB PO SCH ×2 (08:34→20:47)
[2016-10-18] MEDS: KCL 20 MEQ/NS 1,000 ML IVS PRN (08:35)
[2016-10-18] MEDS: PROMETHAZINE W/CODEINE SYR 5 ML UD PO PRN (08:42)
[2016-10-18] MEDS ORDERED: methylPREDNISolone SODIUM SUC 125 MG/2 ML VIAL IV ONE (15:30)
[2016-10-18] MEDS ORDERED: PROMETHAZINE W/CODEINE SYR 5 ML UD PO PRN (16:13)
--- NOTE | 2016-10-18 16:53 | PN ---
DATE: 10/18/16 SUPERVISING PHYSICIAN: Chin Echeverria M.D. SUBJECTIVE: The patient is lying in her hospital bed. She is asleep. She awakens easily. She complains of coughing and occasional shortness of breath, especially with exertion, although she does say it is better than before. She denies any chest pain, nausea or vomiting. She actually states her cough is keeping her up at night and wondered if she could have something a little stronger. OBJECTIVE: VITAL SIGNS: She is afebrile, heart rate 90 to 114, blood pressure 110/68, respiratory rate 18, O2 sat is 91% on 2 liters nasal cannula. RESPIRATORY: Bilateral scattered expiratory wheezes throughout with scattered rhonchi, especially through the left upper lobe. The rhonchi somewhat clears with coughing. CARDIAC: Regular rate and rhythm. ABDOMEN: Soft, nondistended, nontender. Bowel sounds are positive. EXTREMITIES: No cyanosis, clubbing or edema. NEUROLOGIC: She is awake, alert and oriented times three. LABORATORY: WBCs have come down to 13,300, hemoglobin is 10.5 and 32. Sodium 142, potassium 4.2, chloride 110, carbon dioxide 226, BUN 6, creatinine 0.42. Final sputum culture is normal lucas at 48 hours. Preliminary blood cultures show no growth after 48 hours. Chest x-ray shows diffuse interstitial and airspace opacities worse within the right lung. This likely represents pulmonary edema and/or pneumonia. All other labs and films have been reviewed via the EMR. ASSESSMENT: 1. Acute pneumonia, atypical presentation, showing radiographic and clinical improvement, probable community acquired, with a bilateral, more prominent on the right perihilar, infiltrates radiographically, cultures pending, being treated with Rocephin and azithromycin preparations. 2. Leukocytosis, showing some improvement with followup tomorrow. 3. Febrile illness, persistent, though somewhat improved. 4. Hypoxia with documented desaturation on ambulation with repeat evaluation tomorrow to show physiologic improvement as treatment course continues. 5. Hypokalemia with supplementation initiated and followup in the morning. 6. Chronic back pain, being followed in the pain clinic with renewal of pain medicines upon discharge. 7. Hypothyroidism, on supplementation, showing a need for an increased amount of supplementation because of an elevated TSH of 7.6. PLAN: We will continue present supportive care, including her present antibiotics of Azithromycin and Rocephin. I will await cultures and change those antibiotics as needed. I have also given her 1 dose of Solu-Medrol as she has quite a bit of wheezing and that may help her with her breathing. I have not given her any routine dosing of Solu-Medrol but we will reevaluate that tomorrow. I have done routine labs and will hold off on a chest x-ray until tomorrow. There was some question regarding her pain medications and I spoke with Dr. Higuera's office. I spoke with Crystal at his office in [place]. She will have an appointment with Dr. Higuera on October 24, which is next Sunday. She should have enough medications with the exception of her Tylenol with codeine. She will need to call the [facility] for her followup appointment at the specific time for the . On 09/20/16, she received 10 Fentanyl patches as well as 16 Tylenol #4s, and she is instructed to take her Tylenol #4s b.i.d. On the 26 of September, she got 60 morphine extended release 30 mg tablets. Otherwise we will continue to monitor closely. I have also given her some scheduled Mucinex and have ordered her some Promethazine with codeine for coughing. Will continue to follow her closely and followup as needed. #[id number] [facility]
[2016-10-18] MEDS ORDERED: methylPREDNISolone SODIUM SUC 125 MG/2 ML VIAL ONE (17:03)
[2016-10-18] MEDS: AZITHROMYCIN 250 MG TAB PO SCH (17:51)
[2016-10-18] MEDS: guaiFENesin ER TAB 600 MG TAB PO SCH (20:47)
[2016-10-18] MEDS: ENOXAPARIN SODIUM 40 MG/0.4 ML SYG SUBCU SCH (20:48)
[2016-10-18] MEDS: SODIUM CHLORIDE 0.9% (FLUSH) 10 ML SYG IV SCH (20:48)
[2016-10-18] MEDS ORDERED: NICOTINE PATCH 14 MG TD SCH (21:00)
[2016-10-18] MEDS: IV SET AND CAP CHANGE INJ INJ SCH (21:00)
[2016-10-18] MEDS: traZODone HCL 100 MG TAB PO SCH (21:08)
[2016-10-19] MEDS: PROMETHAZINE W/CODEINE SYR 5 ML UD PO PRN ×2 (02:42→10:23)
[2016-10-19] MEDS ORDERED: SODIUM CHL 0.9% 50ML MIN-BAG+ 50 ML IVPB ONE (05:41)
[2016-10-19] MEDS ORDERED: cefTRIAXone SODIUM 1 GM VIAL ONE (05:42)
[2016-10-19] MEDS: LEVOTHYROXINE SODIUM 0.075 MG TAB PO SCH (05:49)
[2016-10-19] MEDS: OMEPRAZOLE CAP 20 MG CAP PO SCH (05:49)
[2016-10-19] MEDS: cefTRIAXone SODIUM 1 GM in SODIUM CHL 0.9% 50ML MIN-BAG+ 50 ML IVPB SCH (06:04)
[2016-10-19] MEDS: SODIUM CHLORIDE 0.9% (FLUSH) 10 ML SYG IV PRN (06:31)
[2016-10-19] MEDS: POTASSIUM CHLORIDE 10 MEQ TAB PO SCH (08:04)
[2016-10-19] MEDS: IPRATROPIUM/ALBUTEROL 3 ML VIAL INH SCH ×2 (08:12→12:30)
[2016-10-19] MEDS: MORPHINE ER 30 MG TAB PO SCH (09:24)
[2016-10-19] MEDS: PREGABALIN 100 MG CAP PO SCH (09:24)
[2016-10-19] MEDS: ARIPiprazole 5 MG TAB PO SCH (09:25)
[2016-10-19] MEDS: diphenhydrAMINE HCL 25 MG CAP PO SCH (09:26)
[2016-10-19] MEDS: guaiFENesin ER TAB 600 MG TAB PO SCH (09:27)
[2016-10-19] MEDS: ALPRAZolam 0.5 MG TAB PO SCH (09:27)
[2016-10-19] MEDS: FLUoxetine HCL 20 MG CAP PO SCH (09:28)
[2016-10-19] MEDS: QUEtiapine FUMARATE 100 MG TAB PO SCH (09:29)
[2016-10-19] MEDS: SODIUM CHLORIDE 0.9% (FLUSH) 10 ML SYG IV SCH (09:29)
[2016-10-19 10:28] VITALS: BP 106/70; TEMP 97.6
[2016-10-19 12:33] VITALS: O2SAT 98
[2016-10-19] MEDS ORDERED: AZITHROMYCIN 250 MG TAB PO ONE (13:41)
--- NOTE | 2016-10-19 17:18 | DS ---
SUPERVISING PHYSICIAN: Chin Echeverria M.D. DISCHARGE DIAGNOSIS: 1. Acute pneumonia, atypical presentation showing radiographic and clinical improvement most likely was community acquired with bilateral more prominent on the right perihilar infiltrates radiographically. She has improved clinically. She was treated as an inpatient with Rocephin and Azithromycin and has completed her antibiotic treatment. 2. Leukocytosis that has resolved. 3. Febrile illness that has resolved. 4. Hypoxia on admission with documented desaturations without ambulation that has now improved. 5. Hypokalemia that has resolved. 6. Chronic back pain being followed in the pain clinic with renewal of pain medications upon discharge and having an appointment on 10/24/16 at the pain clinic with Dr. aCt at [facility]. 7. Hypothyroidism with an elevated TSH at 7.6 in the hospital that may need an increased amount of supplementation, but will defer to her primary care physician, Dr. Santana. HISTORY OF PRESENT ILLNESS: This is a 41 year-old female patient who was admitted to the hospital from the Emergency Room due to worsening shortness of breath, cough with green sputum and high fever with chills and headache that had worsened over the weekend prior to admission. She had similar symptoms about a year ago and had pneumonia, and came to the Emergency Room because she was afraid it may have recurred. In the Emergency Room, she was found to have a temperature of 102.7 with a white count greater than 20,000. Her chest x-ray suggested an atypical pneumonia with low oxygen present. She was admitted to the hospital for antibiotic therapy as well as respiratory support and pulmonary hygiene. HOSPITAL COURSE: Over the next several days, she was given Rocephin as well as Azithromycin. She was also given DuoNeb breathing treatments. Her routine medications were resolved. She continued to have a cough throughout her stay. As she clinically improved, so did her coughing. Today, she has been up walking in the halls and her symptoms have vastly improved. Her lab values have normalized as well as her chest x-ray with marked improvement. She will be discharged home. DISCHARGE PLAN: The patient will be discharged home in stable condition. She is to resume her previous diet and increase her activity as tolerated. It is to be noted that I spoke at length with Crystal in Dr. Cat's office. She did miss her pain management appointment last Sunday, but they will see her at [facility] this Sunday, the . I discussed with them at length about her medications and according to them they only medication she may have run out of would be her Tylenol #4. I have given her 8 Tylenol #3s to make sure she has enough of her pain medications to get to her appointment on Sunday. She will also have a followup appointment with Dr. Santana on 10/25/16 at 8:45 AM. She is to followup at the hospital if there are any further problems or issues. I am not sure what her Synthroid was when she started at the hospital as there are numerous different dosings. I am sending her home on 0.137. It is worth noting that she may need another TSH checked as it was 7.6 on admission and she could not tell me what her dosing was, and it is difficult to ascertain her home dose from what she is actually taking at home. Her home medications were restarted. She completed her antibiotic therapy by having completed her Azithromycin. DISCHARGE MEDICATIONS: 1. Levothyroxine. 2. Trazodone. 3. Prozac. 4. Seroquel. 5. Lyrica. 6. Abilify. 7. Morphine sulfate ER. 8. Tylenol with codeine #4. 9. ProAir HFA. 10. Diphenhydramine. 11. Alprazolam. 12. Acetaminophen with codeine #3. She received 8 tablets and that is to supplement until she can see her pain doctor. Dr. Echeverria is the collaborating physician available for consultation. #[id number] [facility]
== END 2016-10-19 14:10 | disposition home or self-care (01) | DRG 190 ==
LOC: ER 17:59 → OBSVTOIN 20:26 → MS 20:26
PROVIDERS: ADMIT Emergency Medicine; ATTEND Nurse Practitioner Acute Care
DX: J44.0 Chronic obstructive pulmonary disease with (acute) lower respiratory infection (principal); J18.9 Pneumonia, unspecified organism; R09.02 Hypoxemia; E87.6 Hypokalemia; G89.29 Other chronic pain; M54.9 Dorsalgia, unspecified; E03.9 Hypothyroidism, unspecified; F41.9 Anxiety disorder, unspecified; F32.9 Major depressive disorder, single episode, unspecified; F17.210 Nicotine dependence, cigarettes, uncomplicated; Z96.89 Presence of other specified functional implants; Z88.6 Allergy status to analgesic agent; Z79.899 Other long term (current) drug therapy; Z79.891 Long term (current) use of opiate analgesic

== ENCOUNTER → 2016-10-31 | Outpatient (CLI) | payer OTHER | END | disposition home or self-care (01) | LOC: GMAM 16:56 | PROVIDERS: ATTEND Family Medicine | DX: J18.1 Lobar pneumonia, unspecified organism (principal) ==

== ENCOUNTER → 2016-11-21 | Outpatient (CLI) | payer OTHER | END | disposition home or self-care (01) | LOC: YCFC.O 13:20 | PROVIDERS: ATTEND Anesthesiology Pain Medicine | DX: Z79.891 Long term (current) use of opiate analgesic (principal) ==

== ENCOUNTER → 2016-11-27 | Outpatient (CLI) | payer OTHER | END | disposition home or self-care (01) | LOC: GMAM 16:35 | PROVIDERS: ATTEND Family Medicine | DX: E03.9 Hypothyroidism, unspecified (principal) ==

== ENCOUNTER 2016-12-08 18:40 | Emergency (ER) | payer OTHER ==
[2016-12-08 19:42] VITALS: TEMP 98.8
--- NOTE | 2016-12-08 20:12 | RAD ---
EXAM DESCRIPTION: Chest,2 Views CLINICAL HISTORY: chest pain 2 days COMPARISON: October 18, 2016 FINDINGS: Cardiac silhouette is within normal limits. EKG leads project over the chest. Dorsal stimulating catheters ends at the mid thoracic spine level. There is no focal parenchymal or pleural disease. There is no acute osseous process visualized. IMPRESSION: No evidence of acute cardiopulmonary disease. Electronically signed by: Timi Tolliver MD 12/08/2016 8:09 PM CDT
--- NOTE | 2016-12-08 23:46 | ED.PDOC ---
History of Present Illness - General Chief Complaint: Chest Pain/ME Stated Complaint: CHest Pain, Difficulty Swollowing Time Seen by Provider: 12/08/16 19:08 Source: patient Exam Limitations: no limitations - History of Present Illness Initial Comments: The patient is a 41-year-old female with a multitude of long-standing medical problems presenting to the emergency room secondary to intermittent chest pain over the last 48 hours. The chest pain has been somewhat roving. Sometimes it is in the right upper chest sometimes it is in the left lower chest. Sometimes it causes her left arm pain to move her arm and shoulder. Sometimes it does not. She has had a mildly productive cough over the last couple of days and has felt a little bit short of breath. She has had bronchitis in the past. No syncope or near syncope. No palpitations. Chest pain is pulling and sharp in nature in general. No palpitations. No rash. The patient is undergoing long-term chronic pain management. Timing/Duration: unsure, intermittent Severity: moderate Improving Factors: immobilization Worsening Factors: movement Associated Symptoms: chest pain, malaise Allergies/Adverse Reactions: Allergies Aspirin Allergy (Severe, Verified 10/08/16 17:26) Anaphylaxis Home Medications: Ambulatory Orders Fluoxetine HCl [Prozac] 40 mg PO QAM 11/21/15 Levothyroxine Sodium [Synthroid] 0.137 mg PO 0700 11/21/15 Trazodone HCl 100 mg PO BEDTIME 11/21/15 Quetiapine Fumarate [Seroquel] 400 mg PO BID 03/14/16 Aripiprazole [Abilify] 10 mg PO DAILY 09/07/16 Pregabalin [Lyrica] 200 mg PO BID 09/07/16 Morphine Sulfate [Morphine Sulfate ER] 30 mg PO BID 10/08/16 Tylenol W/Codeine #4 60 - 300 mg PO BID 10/08/16 Albuterol Sulfate [Proair Hfa] 2 puff INH Q8HR PRN 10/15/16 Alprazolam [Xanax] 1 mg PO DAILY 10/15/16 diphenhydrAMINE HCL [Benadryl] 25 mg PO BID 10/15/16 Acetamin W/Cod #3 Tab [Tylenol w/CODEINE #3] 2 ea PO BID #8 tab 10/19/16 Azithromycin 250 mg PO DAILY #5 tab 12/08/16 Review of Systems - Review of Systems Review of Systems: 12/08/16 23:46 for new symptoms or changes in her baseline symptoms: Constitutional: States: malaise EENTM: States: no symptoms reported Respiratory: States: cough Cardiology: States: chest pain Gastrointestinal/Abdominal: States: no symptoms reported Genitourinary: States: no symptoms reported Musculoskeletal: States: see HPI Skin: States: no symptoms reported Neurological: States: anxiety Endocrine: States: no symptoms reported All other Systems: No Change from Baseline Past Medical History (General) - Patient Medical History Hx Seizures: No Hx Stroke: No Hx Dementia: No Hx Asthma: Yes Hx of COPD: No Hx Cardiac Disorders: No Hx Congestive Heart Failure: No Hx Pacemaker: No Hx Hypertension: No Hx Thyroid Disease: Yes Hx Diabetes: No Hx Gastroesophageal Reflux: Yes Hx Renal Disease: No Hx Cancer: No Hx of HIV: No Hx Hepatitis C: No Hx MRSA: Yes MRSA Source:: Wound Surgical History: Hysterectomy - Vaccination History Hx Tetanus, Diphtheria Vaccination: No Hx Influenza Vaccination: Yes Hx Pneumococcal Vaccination: Yes - Social History Hx Tobacco Use: Yes Hx Chewing Tobacco Use: No Hx Alcohol Use: No Hx Substance Use: No Hx Substance Use Treatment: No Hx Depression: No Feels Threatened In Home Enviroment: No Feels Threatened In a Relationship: No Hx Physical Abuse: No Hx Emotional Abuse: No Hx Suspected Abuse: No - Female History Patient is a Female of Child Bearing Age (10 -59 yrs old): No Patient : No Family Medical History - Family History Mother Family History: No Known Name: Shari Murdock Age (years): 66 Living Status: Still Living Hx Family Asthma: No Hx Family Congestive Heart Failure: No Hx Family Hypertension: No Hx Family Stroke: No Hx Cardiac Disease: No Hx Family Diabetes: No Hx Family Cancer: No Hx Family;Other: Depression,back pain and spondilosis Physical Exam - Physical Exam General Appearance: Alert, Anxious, No apparent distress Eye Exam: bilateral normal Ears, Nose, Throat: hearing grossly normal, normal ENT inspection, normal pharynx Neck: full range of motion, supple Respiratory: chest non-tender, no respiratory distress, no accessory muscle use , rhonchi - primarily to the right midlung Cardiovascular/Chest: normal peripheral pulses, regular rate, rhythm, no edema Peripheral Pulses: radial,right: 2+, radial,left: 2+, dorsalis pedis,right: 2+, dorsalis pedis,left: 2+ Gastrointestinal/Abdominal: non tender, soft Rectal Exam: deferred Back Exam: other - chronic changes Extremity: normal range of motion, normal inspection, no pedal edema, no calf tenderness, normal capillary refill Neurologic: alert, normal mood/affect, oriented x 3 Skin Exam: normal color Comments: Vital Signs - 24 hr 12/08/16 19:05 Temperature 98.8 F Pulse Rate [L 93 H Arm] Respiratory 20 Rate Blood Pressure 117/60 [L Arm] O2 Sat by Pulse 92 L Oximetry Progress - Progress Progress: 12/08/16 23:49 the patient is a 41-year-old female presenting with chest discomfort that is most consistent with pleuritic pain. She does appear to have a mild bronchitis going currently. The patient will be placed on azithromycin with the first dose given tonight. She does need to follow up with her primary care doctor early next week. She is not hypoxic. Chest x-ray is reassuring. Lab work is reassuring. She does need to keep well hydrated as she is mildly dehydrated today. ER warnings were given for any significant worsening. she also needs to keep follow-up with chronic pain management. EKG shows normal sinus rhythm with a mildly prolonged QT interval. No acute ST segment changes concerning for ischemia. - Results/Orders Results/Orders: chest x-ray shows no obvious acute pathology. No evidence of pneumonia or fluid overload. Laboratory Results - last 24 hr 12/08/16 12/08/16 12/08/16 19:29 19:48 19:48 WBC 8.9 RBC 4.75 Hgb 14.1 Hct 42.2 MCV 88.9 MCH 29.7 MCHC 33.4 RDW 14.6 H Plt Count 394 MPV 7.6 Absolute Neuts (auto) 5.50 Absolute Lymphs (auto) 2.20 Absolute Monos (auto) 1.00 H Absolute Eos (auto) 0.20 Absolute Basos (auto) 0.10 Neutrophils % 61.2 Lymphocytes % 24.7 Monocytes % 11.1 H Eosinophils % 2.3 Basophils % 0.7 PT INR PTT (SP) D-Dimer, Quantitative Sodium Potassium Chloride Carbon Dioxide Anion Gap BUN Creatinine BUN/Creatinine Ratio Random Glucose Serum Osmolality Calcium Magnesium Total Bilirubin AST ALT Alkaline Phosphatase Creatine Kinase 267 H* CK-MB (CK-2) 5.5 H* CK-MB (CK-2) % 2.06 Troponin I < 0.02 B-Natriuretic Peptide 9.6 Serum Total Protein Albumin Globulin Albumin/Globulin Ratio Amylase 42 Lipase Urine Color Urine Appearance Urine pH Ur Specific [place] Urine Protein Urine Glucose (UA) Urine Ketones Urine Blood Urine Nitrite Urine Bilirubin Urine Urobilinogen Ur Leukocyte Esterase Urine RBC Urine WBC Ur Epithelial Cells Urine Bacteria Urine HCG, Qual Negative 12/08/16 12/08/16 12/08/16 19:48 19:48 19:48 WBC RBC Hgb Hct MCV MCH MCHC RDW Plt Count MPV Absolute Neuts (auto) Absolute Lymphs (auto) Absolute Monos (auto) Absolute Eos (auto) Absolute Basos (auto) Neutrophils % Lymphocytes % Monocytes % Eosinophils % Basophils % PT 11.0 INR 0.970 PTT (SP) 36.8 H D-Dimer, Quantitative < 200 Sodium 140 Potassium 3.5 L Chloride 101 Carbon Dioxide 28 Anion Gap 14.5 BUN 14 Creatinine 0.73 BUN/Creatinine Ratio 19.2 Random Glucose 125 H Serum Osmolality 281.3 Calcium 9.2 Magnesium 2.0 Total Bilirubin 0.4 AST 27 ALT 32 Alkaline Phosphatase 91 Creatine Kinase CK-MB (CK-2) CK-MB (CK-2) % Troponin I B-Natriuretic Peptide Serum Total Protein 7.1 Albumin 4.0 Globulin 3.1 Albumin/Globulin Ratio 1.3 Amylase Lipase 21 L Urine Color Yellow Urine Appearance Clear Urine pH 5.5 Ur Specific [place] 1.010 Urine Protein Negative Urine Glucose (UA) Negative Urine Ketones Negative Urine Blood Negative Urine Nitrite Negative Urine Bilirubin Negative Urine Urobilinogen 0.2 Ur Leukocyte Esterase Negative Urine RBC 1-3 Urine WBC 1-3 Ur Epithelial Cells 3-5 Urine Bacteria 0 Urine HCG, Qual 12/08/16 22:53 WBC RBC Hgb Hct MCV MCH MCHC RDW Plt Count MPV Absolute Neuts (auto) Absolute Lymphs (auto) Absolute Monos (auto) Absolute Eos (auto) Absolute Basos (auto) Neutrophils % Lymphocytes % Monocytes % Eosinophils % Basophils % PT INR PTT (SP) D-Dimer, Quantitative Sodium Potassium Chloride Carbon Dioxide Anion Gap BUN Creatinine BUN/Creatinine Ratio Random Glucose Serum Osmolality Calcium Magnesium Total Bilirubin AST ALT Alkaline Phosphatase Creatine Kinase 253 H* CK-MB (CK-2) 4.7 H* CK-MB (CK-2) % 1.86 Troponin I < 0.02 B-Natriuretic Peptide Serum Total Protein Albumin Globulin Albumin/Globulin Ratio Amylase Lipase Urine Color Urine Appearance Urine pH Ur Specific [place] Urine Protein Urine Glucose (UA) Urine Ketones Urine Blood Urine Nitrite Urine Bilirubin Urine Urobilinogen Ur Leukocyte Esterase Urine RBC Urine WBC Ur Epithelial Cells Urine Bacteria Urine HCG, Qual Departure - Departure Clinical Impression: Bronchitis Disposition: Discharge to Home or Self Care Condition: Fair Departure Forms: ED Discharge - Pt. Copy, Patient Portal Self Enrollment Instructions: DI for Acute Bronchitis Diet: low fat, low cholesterol Activity: increase activity as tolerated Referrals: Venancio Santana MD [Primary Care Provider] - 1-5 Days Prescriptions: Azithromycin 250 mg PO DAILY #5 tab Home Medications: Ambulatory Orders Fluoxetine HCl [Prozac] 40 mg PO QAM 11/21/15 Levothyroxine Sodium [Synthroid] 0.137 mg PO 0700 11/21/15 Trazodone HCl 100 mg PO BEDTIME 11/21/15 Quetiapine Fumarate [Seroquel] 400 mg PO BID 03/14/16 Aripiprazole [Abilify] 10 mg PO DAILY 09/07/16 Pregabalin [Lyrica] 200 mg PO BID 09/07/16 Morphine Sulfate [Morphine Sulfate ER] 30 mg PO BID 10/08/16 Tylenol W/Codeine #4 60 - 300 mg PO BID 10/08/16 Albuterol Sulfate [Proair Hfa] 2 puff INH Q8HR PRN 10/15/16 Alprazolam [Xanax] 1 mg PO DAILY 10/15/16 diphenhydrAMINE HCL [Benadryl] 25 mg PO BID 10/15/16 Acetamin W/Cod #3 Tab [Tylenol w/CODEINE #3] 2 ea PO BID #8 tab 10/19/16 Azithromycin 250 mg PO DAILY #5 tab 12/08/16 Additional Instructions: the patient is a 41-year-old female presenting with chest discomfort that is most consistent with pleuritic pain. She does appear to have a mild bronchitis going currently. The patient will be placed on azithromycin with the first dose given tonight. She does need to follow up with her primary care doctor early next week. She is not hypoxic. Chest x-ray is reassuring. Lab work is reassuring. She does need to keep well hydrated as she is mildly dehydrated today. ER warnings were given for any significant worsening. she also needs to keep follow-up with chronic pain management. The patient obviously needs to not smoke.
[2016-12-08] MEDS ORDERED: AZITHROMYCIN 250 MG TAB PO ONE (23:48)
[2016-12-09 00:06] VITALS: BP 117/53; O2SAT 90
== END 2016-12-09 00:05 | disposition home or self-care (01) ==
LOC: ER 18:40
DX: J40 Bronchitis, not specified as acute or chronic (principal); E07.9 Disorder of thyroid, unspecified; K21.9 Gastro-esophageal reflux disease without esophagitis; Z86.14 Personal history of Methicillin resistant Staphylococcus aureus infection; J45.909 Unspecified asthma, uncomplicated; Z79.899 Other long term (current) drug therapy; Z88.6 Allergy status to analgesic agent; Z87.891 Personal history of nicotine dependence

== ENCOUNTER 2017-01-09 19:38 | Emergency (ER) | payer OTHER ==
[2017-01-09] MEDS ORDERED: CHLORHEXIDINE GLUCONATE 4 % 15 ML UD TOP ONE (20:02)
[2017-01-09] MEDS ORDERED: KETOROLAC TROMETHAMINE INJ 60 MG/2 ML VIAL IM ONE (20:05)
--- NOTE | 2017-01-09 20:08 | ED.PDOC ---
History of Present Illness - General Chief Complaint: Upper Extremity Injury Stated Complaint: BUCKED OFF DONKEY Time Seen by Provider: 01/09/17 19:42 Source: patient Exam Limitations: no limitations Additional Information: PT WAS BUCKED OFF DONKEY. LANDED ON HER HEAD. 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 Severity: moderate Improving Factors: nothing Worsening Factors: nothing Allergies/Adverse Reactions: Allergies Aspirin Allergy (Severe, Verified 10/08/16 17:26) Anaphylaxis Home Medications: Ambulatory Orders Levothyroxine Sodium [Synthroid] 0.137 mg PO 0700 11/21/15 Albuterol Sulfate [Proair Hfa] 2 puff INH Q8HR PRN 10/15/16 Alprazolam [Xanax] 1 mg PO DAILY 10/15/16 Cyclobenzaprine HCl [Flexeril] 10 mg PO TID PRN #15 tab 01/09/17 Indomethacin 50 mg PO TID PRN #14 cap 01/09/17 Review of Systems - Review of Systems Constitutional: Denies: chills, fever EENTM: Denies: ear pain, nose congestion, throat pain Respiratory: Denies: cough, short of breath Cardiology: Denies: chest pain, palpitations, syncope Gastrointestinal/Abdominal: Denies: abdominal pain, nausea, vomiting Genitourinary: States: no symptoms reported Musculoskeletal: States: back pain, neck pain Skin: States: other - ABRASION Neurological: States: other - NO LOC. Denies: numbness, tingling Endocrine: States: no symptoms reported Hematologic/Lymphatic: States: no symptoms reported Past Medical History (General) - Patient Medical History Hx Seizures: No Hx Stroke: No Hx Dementia: No Hx Asthma: Yes Hx of COPD: No Hx Cardiac Disorders: No Hx Congestive Heart Failure: No Hx Pacemaker: No Hx Hypertension: No Hx Thyroid Disease: Yes Hx Diabetes: No Hx Gastroesophageal Reflux: Yes Hx Renal Disease: No Hx Cancer: No Hx of HIV: No Hx Hepatitis C: No Hx MRSA: Yes MRSA Source:: Wound Surgical History: Hysterectomy - Vaccination History Hx Tetanus, Diphtheria Vaccination: No Hx Influenza Vaccination: Yes Hx Pneumococcal Vaccination: Yes - Social History Hx Tobacco Use: Yes Hx Chewing Tobacco Use: No Hx Alcohol Use: No Hx Substance Use: No Hx Substance Use Treatment: No Hx Depression: No Hx Physical Abuse: No Hx Emotional Abuse: No Hx Suspected Abuse: No - Female History Patient is a Female of Child Bearing Age (10 -59 yrs old): No Patient : No Family Medical History - Family History Mother Family History: No Known Name: Shari Murdock Age (years): 66 Living Status: Still Living Hx Family Asthma: No Hx Family Congestive Heart Failure: No Hx Family Hypertension: No Hx Family Stroke: No Hx Cardiac Disease: No Hx Family Diabetes: No Hx Family Cancer: No Hx Family;Other: Depression,back pain and spondilosis Physical Exam - Physical Exam General Appearance: No apparent distress, Obese Eye Exam: bilateral normal Neck: full range of motion, supple, other - MILD PARACERVICAL TTP Respiratory: chest non-tender, lungs clear, normal breath sounds, no respiratory distress Cardiovascular/Chest: regular rate, rhythm, no murmur Gastrointestinal/Abdominal: normal bowel sounds, non tender, soft Back Exam: normal inspection, other - MOD TTP LOWER LUMBAR SPINE, NO EVIDENCE OF TRAUMA Extremity: other - ABRASION WITH SMALL LACERATION L ELBOW, PREVIOUS SURGICAL SCAR NOTED. Neurologic: alert, normal mood/affect, oriented x 3, other - ST 5/5 SENS NL, Lymphatic: no adenopathy Progress - Progress Progress: 01/09/17 21:32 APPEARS COMFORTABLE. PT C/O PELVIS PAIN BUT DOES NOT WANT FURTHER IMAGING. 01/09/17 21:34 - EKG/XRAY/CT XRAY: chest - PREVIOUS ORIF, NO FX Xray Comments: CHEST, PEACE CT Ordered: Yes - CT HEAD, PEACE, CT CERVICAL SPINE, NO FX. Departure - Departure Clinical Impression: Abrasion Contusion Qualifiers: Encounter type: initial encounter Contusion area: neck Qualified Code(s): S10.93XA - Contusion of unspecified part of neck, initial encounter ICD-10 Supporting Text: L FOREARM ABRASION Time of Disposition: 21:36 Disposition: Discharge to Home or Self Care Condition: Good Departure Forms: ED Discharge - Pt. Copy, Patient Portal Self Enrollment Instructions: Forearm Muscle Strain, DI for Abrasion, DI for Musculoskeletal Pain Referrals: Venancio Santana MD [Primary Care Provider] - 1-2 Weeks Prescriptions: Cyclobenzaprine HCl [Flexeril] 10 mg PO TID PRN #15 tab PRN Reason: Pain Indomethacin 50 mg PO TID PRN #14 cap PRN Reason: Pain Home Medications: Ambulatory Orders Levothyroxine Sodium [Synthroid] 0.137 mg PO 0700 11/21/15 Albuterol Sulfate [Proair Hfa] 2 puff INH Q8HR PRN 10/15/16 Alprazolam [Xanax] 1 mg PO DAILY 10/15/16 Cyclobenzaprine HCl [Flexeril] 10 mg PO TID PRN #15 tab 01/09/17 Indomethacin 50 mg PO TID PRN #14 cap 01/09/17
--- NOTE | 2017-01-09 20:43 | CT ---
PROCEDURE: Head CLINICAL HISTORY: 41 years Female FALL COMPARISON: None. TECHNIQUE: Contiguous axial images obtained through the brain without IV contrast. This exam was performed according to our department optimization program which includes automated exposure control, adjustment of the mA and/or kv according to patient size and/or use of iterative reconstruction technique. FINDINGS: The ventricles and sulci are within normal limits for the patient's age. No midline shift or mass effect. No masses identified. No acute intracranial hemorrhage. No fluid or significant mucosal thickening in the visualized paranasal sinuses. No depressed calvarial fractures. IMPRESSION: No acute intracranial abnormality is identified. Electronically signed by: Guadalupe Lara 01/09/2017 8:42 PM CDT
--- NOTE | 2017-01-09 20:56 | RAD ---
EXAM DESCRIPTION: Chest,1 View CLINICAL HISTORY: 41 years Female FALL fell off donkey with chest pain COMPARISON: 12/08/2016 FINDINGS: The cardiomediastinal silhouette appears unremarkable. No consolidating infiltrates or pleural effusions. No pneumothorax. Epidural leads stimulators in unchanged position. IMPRESSION: No acute abnormality is identified. Electronically signed by: Guadalupe Lara 01/09/2017 8:54 PM CDT
--- NOTE | 2017-01-09 21:05 | RAD ---
EXAM DESCRIPTION: Elbow,Left 2 Views CLINICAL HISTORY: 41 years ,Female FALL with laceration of the left elbow COMPARISON: 03/24/2010. TECHNIQUE: LEFT elbow, two view FINDINGS: There is previous ORIF of the diaphyses of the radius and ulna with stable appearance of the hardware. No evidence of acute fracture. No joint effusion. IMPRESSION: No acute fractures are identified. If symptoms persist, followup is recommended in 7-10 days. Electronically signed by: Guadalupe Lara 01/09/2017 9:04 PM CDT
--- NOTE | 2017-01-09 21:07 | CT ---
PROCEDURE: Cervical Spine CLINICAL HISTORY: 41 years Female FALL COMPARISON: None. TECHNIQUE: Contiguous axial images obtained through the cervical spine without IV contrast. Coronal and sagittal reformatted images obtained. This exam was performed according to our department optimization program which includes automated exposure control, adjustment of the mA and/or kv according to patient size and/or use of iterative reconstruction technique. FINDINGS: There is straightening of the normal lordosis. No significant central canal stenosis. Prevertebral soft tissues appear within normal limits. IMPRESSION: No acute cervical spinal fracture is identified. Electronically signed by: Guadalupe Lara 01/09/2017 9:06 PM CDT
[2017-01-09 21:47] VITALS: BP 128/84; TEMP 97.2; O2SAT 98
== END 2017-01-09 21:47 | disposition home or self-care (01) ==
LOC: ER 19:38
DX: S10.93XA Contusion of unspecified part of neck, initial encounter (principal); S50.812A Abrasion of left forearm, initial encounter; K21.9 Gastro-esophageal reflux disease without esophagitis; E07.9 Disorder of thyroid, unspecified; Z87.891 Personal history of nicotine dependence; Z88.6 Allergy status to analgesic agent; Z79.899 Other long term (current) drug therapy; V80.018A Animal-rider injured by fall from or being thrown from other animal in noncollision accident, initial encounter; Y92.9 Unspecified place or not applicable
CPT/HCPCS: 70450; 71010; 72125; 73070; J1885

== ENCOUNTER 2017-01-10 19:43 | Emergency (ER) | payer OTHER ==
[2017-01-10 20:17] VITALS: BP 112/77; TEMP 99.1; O2SAT 95
--- NOTE | 2017-01-10 21:24 | ED.PDOC ---
History of Present Illness - General Chief Complaint: Headache Stated Complaint: headache to left side of head, nausea Time Seen by Provider: 01/10/17 20:00 Source: patient, RN notes reviewed, Vital Signs reviewed Exam Limitations: no limitations - History of Present Illness Initial Comments: Juani Porras 41 y/o female stated that she has left sided sharp headache since this morning with radiation to back of her head shehas history of migraines and was seen in er last night after she was [place] off by a donkey fell on her head and back to the ground .She had ct head/neck last night showing no abnormalities on her er visit last night Timing/Duration: constant Severity: moderate Improving Factors: nothing Worsening Factors: other - light and loud noises Associated Symptoms: nausea/vomiting Allergies/Adverse Reactions: Allergies Aspirin Allergy (Severe, Verified 01/10/17 20:09) Anaphylaxis Home Medications: Ambulatory Orders Levothyroxine Sodium [Synthroid] 0.137 mg PO 0700 11/21/15 Albuterol Sulfate [Proair Hfa] 2 puff INH Q8HR PRN 10/15/16 Alprazolam [Xanax] 1 mg PO DAILY 10/15/16 Cyclobenzaprine HCl [Flexeril] 10 mg PO TID PRN #15 tab 01/09/17 Indomethacin 50 mg PO TID PRN #14 cap 01/09/17 Review of Systems - Review of Systems Constitutional: States: no symptoms reported EENTM: States: no symptoms reported Respiratory: States: no symptoms reported Cardiology: States: no symptoms reported Gastrointestinal/Abdominal: States: no symptoms reported Genitourinary: States: no symptoms reported Musculoskeletal: States: no symptoms reported Skin: States: other - abrasions Neurological: States: headache, other Endocrine: States: no symptoms reported Past Medical History (General) - Patient Medical History Hx Seizures: No Hx Stroke: No Hx Dementia: No Hx Asthma: Yes Hx of COPD: No Hx Cardiac Disorders: No Hx Congestive Heart Failure: No Hx Pacemaker: No Hx Hypertension: No Hx Thyroid Disease: Yes Hx Diabetes: No Hx Gastroesophageal Reflux: Yes Hx Renal Disease: No Hx Cancer: No Hx of HIV: No Hx Hepatitis C: No Hx MRSA: Yes MRSA Source:: Wound Surgical History: other - hysterectomy - Vaccination History Hx Tetanus, Diphtheria Vaccination: Yes Hx Influenza Vaccination: Yes Hx Pneumococcal Vaccination: Yes Immunizations Up to Date: Yes - Social History Hx Tobacco Use: Yes Hx Chewing Tobacco Use: No Hx Alcohol Use: No Hx Substance Use: No Hx Substance Use Treatment: No Hx Depression: No Feels Threatened In Home Enviroment: No Feels Threatened In a Relationship: No Hx Physical Abuse: No Hx Emotional Abuse: No Hx Suspected Abuse: No - Female History Patient : No Family Medical History - Family History Mother Family History: No Known Name: Shari Murdock Age (years): 66 Living Status: Still Living Hx Family Asthma: No Hx Family Congestive Heart Failure: No Hx Family Hypertension: No Hx Family Stroke: No Hx Cardiac Disease: No Hx Family Diabetes: No Hx Family Cancer: No Hx Family;Other: Depression,back pain and spondilosis Physical Exam - Physical Exam General Appearance: Alert, Comfortable, No apparent distress Eye Exam: bilateral normal Ears, Nose, Throat: hearing grossly normal, normal ENT inspection, normal pharynx Neck: non-tender, full range of motion, supple Respiratory: chest non-tender, lungs clear, no respiratory distress Cardiovascular/Chest: normal peripheral pulses, regular rate, rhythm, no murmur Peripheral Pulses: radial,right: 1+, radial,left: 1+ Gastrointestinal/Abdominal: normal bowel sounds, non tender, soft, no organomegaly Back Exam: normal inspection Extremity: normal range of motion, non-tender Neurologic: no motor/sensory deficits, alert, normal mood/affect, oriented x 3 Skin Exam: other - abrasions left elbow Progress - Progress Progress: 01/11/17 00:46 Vital Signs - 8 hr 01/10/17 19:45 Temperature 99.1 F Pulse Rate [ 87 monitor] Respiratory 16 Rate Blood Pressure 112/77 [Right Arm] O2 Sat by Pulse 95 Oximetry Departure - Departure Clinical Impression: Headache Qualifiers: Headache type: unspecified Headache chronicity pattern: unspecified pattern Intractability: not intractable Qualified Code(s): R51 - Headache Time of Disposition: 22:10 Disposition: Discharge to Home or Self Care Condition: Fair Departure Forms: ED Discharge - Pt. Copy, Patient Portal Self Enrollment Referrals: Venancio Santana MD [Primary Care Provider] - 1-2 Weeks Home Medications: Ambulatory Orders Levothyroxine Sodium [Synthroid] 0.137 mg PO 0700 11/21/15 Albuterol Sulfate [Proair Hfa] 2 puff INH Q8HR PRN 10/15/16 Alprazolam [Xanax] 1 mg PO DAILY 10/15/16 Cyclobenzaprine HCl [Flexeril] 10 mg PO TID PRN #15 tab 01/09/17 Indomethacin 50 mg PO TID PRN #14 cap 01/09/17
[2017-01-10] MEDS ORDERED: PROMETHAZINE HCL INJ 25 MG/ML VIAL IM ONE (21:45)
[2017-01-10] MEDS ORDERED: BUTORPHANOL TARTRATE 2 MG/ML VIAL IM ONE (21:45)
[2017-01-10] MEDS ORDERED: CEPHALEXIN MONOHYDRATE 500 MG CAP PO ONE (21:46)
[2017-01-10] MEDS ORDERED: SULFA/TRIMETH 800/160 (DS) TAB 1 EA TAB PO ONE (21:46)
== END 2017-01-10 22:10 | disposition home or self-care (01) ==
LOC: ER 19:43
DX: R51 Headache (principal); R11.2 Nausea with vomiting, unspecified; E07.9 Disorder of thyroid, unspecified; K21.9 Gastro-esophageal reflux disease without esophagitis; Z79.899 Other long term (current) drug therapy; Z88.6 Allergy status to analgesic agent; Z87.891 Personal history of nicotine dependence
CPT/HCPCS: J0595; J2550

== ENCOUNTER → 2017-01-15 | Outpatient (CLI) | payer OTHER | END | disposition home or self-care (01) | LOC: GMAM 14:47 | PROVIDERS: ATTEND Family Medicine | DX: S51.809A Unspecified open wound of unspecified forearm, initial encounter (principal) ==

== ENCOUNTER → 2017-01-24 | Outpatient (CLI) | payer OTHER | END | disposition home or self-care (01) | LOC: GMA 18:02 | PROVIDERS: ATTEND Nurse Practitioner Family | DX: N39.0 Urinary tract infection, site not specified (principal) ==

== ENCOUNTER → 2017-02-20 | Outpatient (CLI) | payer OTHER | END | disposition home or self-care (01) | LOC: YCFC.O 15:03 | PROVIDERS: ATTEND Anesthesiology Pain Medicine | DX: Z79.891 Long term (current) use of opiate analgesic (principal) ==

== ENCOUNTER 2017-03-18 15:33 | Emergency (ER) | payer OTHER ==
--- NOTE | 2017-03-18 15:52 | ED.PDOC ---
History of Present Illness - General Chief Complaint: Behavioral / Psych Stated Complaint: I'm having problems with psychosis and schizophrenia Time Seen by Provider: 03/18/17 15:43 Source: patient, RN notes reviewed, Vital Signs reviewed Exam Limitations: no limitations - History of Present Illness Initial Comments: Patient comes in with complaints of psychosis and schizophrenia. She has had issues in the past and use to be on Seroquel 400mg BID but has not been taking for 7-8 months. Currently she is having auditory hallucinations. No visual hallucinations. No suicidal/homicidal ideation. She is scheduled to see someone @ [facility] this week but could not wait. She called the crisis center who advised she come to the ER. Timing/Duration: getting worse Severity: moderate Associated Symptoms: impaired concentration Allergies/Adverse Reactions: Allergies Aspirin Allergy (Severe, Verified 01/10/17 20:09) Anaphylaxis Home Medications: Ambulatory Orders Levothyroxine Sodium [Synthroid] 0.137 mg PO 0700 11/21/15 Albuterol Sulfate [Proair Hfa] 2 puff INH Q8HR PRN 10/15/16 Alprazolam [Xanax] 1 mg PO DAILY 10/15/16 Cyclobenzaprine HCl [Flexeril] 10 mg PO TID PRN #15 tab 01/09/17 Indomethacin 50 mg PO TID PRN #14 cap 01/09/17 Quetiapine Fumarate [Seroquel] 50 mg PO BID #60 tab 03/18/17 Review of Systems - Review of Systems Constitutional: States: no symptoms reported Respiratory: States: no symptoms reported Cardiology: States: no symptoms reported Gastrointestinal/Abdominal: States: no symptoms reported Musculoskeletal: States: no symptoms reported Neurological: States: see HPI All other Systems: No Change from Baseline Past Medical History (General) - Patient Medical History Hx Seizures: No Hx Stroke: No Hx Dementia: No Hx Asthma: Yes Hx of COPD: No Hx Cardiac Disorders: No Hx Congestive Heart Failure: No Hx Pacemaker: No Hx Hypertension: No Hx Thyroid Disease: Yes Hx Diabetes: No Hx Gastroesophageal Reflux: Yes Hx Renal Disease: No Hx Cancer: No Hx of HIV: No Hx Hepatitis C: No Hx MRSA: Yes MRSA Source:: Wound - Vaccination History Hx Tetanus, Diphtheria Vaccination: Yes Hx Influenza Vaccination: Yes Hx Pneumococcal Vaccination: Yes - Social History Hx Tobacco Use: Yes Hx Chewing Tobacco Use: No Hx Alcohol Use: No Hx Substance Use: No Hx Substance Use Treatment: No Hx Depression: No Hx Physical Abuse: No Hx Emotional Abuse: No Hx Suspected Abuse: No - Female History Patient : No Family Medical History - Family History Mother Family History: No Known Name: Shari Murdock Age (years): 66 Living Status: Still Living Hx Family Asthma: No Hx Family Congestive Heart Failure: No Hx Family Hypertension: No Hx Family Stroke: No Hx Cardiac Disease: No Hx Family Diabetes: No Hx Family Cancer: No Hx Family;Other: Depression,back pain and spondilosis Physical Exam - Physical Exam General Appearance: Anxious, No apparent distress, Well Developed, Well Groomed , Well Hydrated, Well Nourished Neck: supple, normal inspection Respiratory: lungs clear, normal breath sounds, no respiratory distress, no accessory muscle use Cardiovascular/Chest: regular rate, rhythm, no gallop, no JVD, no murmur Extremities Exam: normal range of motion, no evidence of injury Neurological: calm, oriented x 3, depressed affect Appearance: appropriate appearance, appropriate insight Behavior/Eye Contact/Speech: cooperative, good eye contact, normal speech Thoughts/Hallucinations: normal thought pattern, no apparent hallucination Skin Exam: normal color, warm/dry Progress - Progress Progress: 03/18/17 15:56 Will have [facility] counselor come and evaluate patient. 03/18/17 16:08 [facility] counselor will not be able to come for several hours. Patient reports she can't wait due to having a special needs child at home. She would like to just get restarted on her Seroquel. Explained that since she has been off it for so long can't go right back to 400mg BID. Will start with 50mg BID. Advised calling her PCP tomorrow for assistance with medication adjustments until she can be evaluated by [facility]. - Results/Orders Results/Orders: Laboratory Tests 03/18/17 03/18/17 15:55 15:55 WBC 8.1 RBC 4.64 Hgb 14.2 Hct 42.4 MCV 91.3 MCH 30.6 MCHC 33.5 RDW 15.5 H Plt Count 460 H MPV 7.4 Absolute Neuts (auto) 4.50 Absolute Lymphs (auto) 2.60 Absolute Monos (auto) 0.70 Absolute Eos (auto) 0.20 Absolute Basos (auto) 0.10 Neutrophils % 55.1 Lymphocytes % 32.1 Monocytes % 9.1 H Eosinophils % 2.3 Basophils % 1.4 Sodium 139 Potassium 3.8 Chloride 109 Carbon Dioxide 23 Anion Gap 10.8 L BUN 13 Creatinine 0.49 L BUN/Creatinine Ratio 26.5 H Random Glucose 141 H Serum Osmolality 280.0 Calcium 9.0 Total Bilirubin < 0.2 L AST 17 ALT 21 Alkaline Phosphatase 109 Serum Total Protein 7.5 Albumin 4.4 Globulin 3.1 Albumin/Globulin Ratio 1.4 Departure - Departure Clinical Impression: Schizophrenia, acute, Auditory hallucinations Time of Disposition: 16:11 Disposition: Discharge to Home or Self Care Condition: Fair Departure Forms: ED Discharge - Pt. Copy, Patient Portal Self Enrollment Instructions: DI for Schizophrenia Diet: resume usual diet Activity: increase activity as tolerated Referrals: Venancio Santana MD [Primary Care Provider] - 1-5 Days Prescriptions: Quetiapine Fumarate [Seroquel] 50 mg PO BID #60 tab Home Medications: Ambulatory Orders Levothyroxine Sodium [Synthroid] 0.137 mg PO 0700 11/21/15 Albuterol Sulfate [Proair Hfa] 2 puff INH Q8HR PRN 10/15/16 Alprazolam [Xanax] 1 mg PO DAILY 10/15/16 Cyclobenzaprine HCl [Flexeril] 10 mg PO TID PRN #15 tab 01/09/17 Indomethacin 50 mg PO TID PRN #14 cap 01/09/17 Quetiapine Fumarate [Seroquel] 50 mg PO BID #60 tab 03/18/17
[2017-03-18 16:08] VITALS: BP 115/72; TEMP 97.9; O2SAT 94
== END 2017-03-18 16:20 | disposition home or self-care (01) ==
LOC: ER 15:33
DX: F23 Brief psychotic disorder (principal); R44.0 Auditory hallucinations; E07.9 Disorder of thyroid, unspecified; K21.9 Gastro-esophageal reflux disease without esophagitis; J45.909 Unspecified asthma, uncomplicated; Z87.891 Personal history of nicotine dependence; Z88.6 Allergy status to analgesic agent; Z79.899 Other long term (current) drug therapy

== ENCOUNTER 2017-04-13 12:52 | Emergency (ER) | payer OTHER ==
--- NOTE | 2017-04-13 13:10 | ED.PDOC ---
History of Present Illness - General Chief Complaint: Back Pain or Injury Stated Complaint: back pain Time Seen by Provider: 04/13/17 13:06 Source: patient Exam Limitations: no limitations - History of Present Illness Initial Comments: Juani Duarte 42 y/o female stated that for the last 2 days had been having sharp low backache no radiating no fever n,no bowel or bladder dys function ,no leg weakness or numbness. Timing/Duration: other - 2 days agto Quality/Severity: moderate, sharpness Back Pain Location: lumbar spine Back Pain Radiation: other - see hpi Method of Injury/Prior Injury: other - chronic Improving Factors: rest Worsening Factors: movement Associated Symptoms: lower back pain Allergies/Adverse Reactions: Allergies Aspirin Allergy (Severe, Verified 04/13/17 13:09) Anaphylaxis Home Medications: Ambulatory Orders Levothyroxine Sodium [Synthroid] 0.137 mg PO 0700 11/21/15 Albuterol Sulfate [Proair Hfa] 2 puff INH Q8HR PRN 10/15/16 Alprazolam [Xanax] 1 mg PO DAILY 10/15/16 Baclofen 20 mg PO BID #14 tab 04/13/17 Tramadol HCl 50 mg PO Q6HRS PRN #14 tab 04/13/17 Review of Systems - Review of Systems Constitutional: States: no symptoms reported EENTM: States: no symptoms reported Respiratory: States: no symptoms reported Cardiology: States: no symptoms reported Gastrointestinal/Abdominal: States: no symptoms reported Genitourinary: States: no symptoms reported Musculoskeletal: States: see HPI Skin: States: no symptoms reported Neurological: States: no symptoms reported Past Medical History (General) - Patient Medical History Hx Seizures: No Hx Stroke: No Hx Dementia: No Hx Asthma: Yes Hx of COPD: No Hx Cardiac Disorders: No Hx Congestive Heart Failure: No Hx Pacemaker: No Hx Hypertension: No Hx Thyroid Disease: Yes Hx Diabetes: No Hx Gastroesophageal Reflux: Yes Hx Renal Disease: No Hx Cancer: No Hx of HIV: No Hx Hepatitis C: No Hx MRSA: Yes Hx Other PMH: Yes - hypothyroidism,low back pain MRSA Source:: Wound Surgical History: other - hysterectomy - Vaccination History Hx Tetanus, Diphtheria Vaccination: Yes Hx Influenza Vaccination: Yes Hx Pneumococcal Vaccination: Yes - Social History Hx Tobacco Use: Yes Hx Chewing Tobacco Use: No Hx Alcohol Use: No Hx Substance Use: No Hx Substance Use Treatment: No Hx Depression: No Hx Physical Abuse: No Hx Emotional Abuse: No Hx Suspected Abuse: No - Female History Patient : No Family Medical History - Family History Mother Family History: No Known Name: Shari Murdock Age (years): 66 Living Status: Still Living Hx Family Asthma: No Hx Family Congestive Heart Failure: No Hx Family Hypertension: No Hx Family Stroke: No Hx Cardiac Disease: No Hx Family Diabetes: No Hx Family Cancer: No Hx Family;Other: Depression,back pain and spondilosis Physical Exam - Physical Exam General Appearance: Alert, Comfortable, No apparent distress Eyes, Ears, Nose, Throat Exam: PERRL/EOMI, normal ENT inspection, pharynx normal Neck Exam: non-tender, full range of motion, normal alignment Cardiovascular/Respiratory: regular rate, rhythm, normal peripheral pulses, no JVD Peripheral Pulses: radial,right: 2+, radial,left: 2+ Gastrointestinal/Abdominal: normal bowel sounds, non tender, soft, no organomegaly Back Exam: no CVA tenderness, vertebral tenderness - lumbosacral area left Neurologic: no motor/sensory deficits, alert, oriented x 3, other - negative straight leg raising test Skin Exam: normal color, warm/dry Progress - Progress Progress: 04/13/17 13:24 Last Vital Signs Temp 97.7 F 04/13/17 12:54 Pulse 88 04/13/17 12:54 Resp 18 04/13/17 12:54 BP 110/78 04/13/17 12:54 Pulse Ox - EKG/XRAY/CT XRAY: lumbar spine-degenerative changes Departure - Departure Clinical Impression: Facet arthropathy, lumbar Low back pain Qualifiers: Chronicity: chronic Back pain laterality: left Sciatica presence: without sciatica Qualified Code(s): M54.5 - Low back pain; G89.29 - Other chronic pain Time of Disposition: 14:03 Disposition: Discharge to Home or Self Care Departure Forms: ED Discharge - Pt. Copy, Patient Portal Self Enrollment Instructions: DI for Low Back Pain Referrals: Venancio Santana MD [Primary Care Provider] - 1-2 Weeks Prescriptions: Tramadol HCl 50 mg PO Q6HRS PRN #14 tab PRN Reason: Pain Baclofen 20 mg PO BID #14 tab Home Medications: Ambulatory Orders Levothyroxine Sodium [Synthroid] 0.137 mg PO 0700 11/21/15 Albuterol Sulfate [Proair Hfa] 2 puff INH Q8HR PRN 10/15/16 Alprazolam [Xanax] 1 mg PO DAILY 10/15/16 Baclofen 20 mg PO BID #14 tab 04/13/17 Tramadol HCl 50 mg PO Q6HRS PRN #14 tab 04/13/17 Additional Instructions: Follow up with cork painter and grader Dr. Lily Lopez 04/16/2017 patient to call for appointment
--- NOTE | 2017-04-13 13:46 | RAD ---
EXAM DESCRIPTION: Lumbar Spine 3 Views CLINICAL HISTORY: 42 years Female, pain COMPARISON: None. FINDINGS: 3 views of the lumbar spine show no vertebral body fracture or subluxation. Mild disc space narrowing at L5-S1. Facet joint degeneration is noted at several levels in the lower lumbar spine. The spinous processes are intact. A spinal stimulator device is present with leads extending superiorly over the thoracic spine and out of the [id number] of this exam. IMPRESSION: Mild degenerative disc disease at L5-S1 with additional facet joint degeneration at several levels in the lower lumbar spine. No acute lumbar spine abnormality. Electronically signed by: Martín Holland MD 04/13/2017 1:45 PM [facility]
[2017-04-13] MEDS ORDERED: ORPHENADRINE CITRATE 30 MG/ML AMP IM ONE (14:03)
[2017-04-13] MEDS ORDERED: predniSONE 20 MG TAB PO ONE (14:04)
[2017-04-13 14:56] VITALS: BP 112/72; TEMP 97; O2SAT 96
== END 2017-04-13 14:35 | disposition home or self-care (01) ==
LOC: ER 12:52
DX: M12.88 Other specific arthropathies, not elsewhere classified, other specified site (principal); G89.29 Other chronic pain; E03.9 Hypothyroidism, unspecified; K21.9 Gastro-esophageal reflux disease without esophagitis; Z87.891 Personal history of nicotine dependence; Z88.6 Allergy status to analgesic agent; Z79.899 Other long term (current) drug therapy
CPT/HCPCS: 72100; 81001; J2360; J7512

== ENCOUNTER 2017-04-15 17:34 | Emergency (ER) | payer OTHER ==
[2017-04-15 17:53] VITALS: TEMP 99.1
[2017-04-15] MEDS ORDERED: methylPREDNISolone SODIUM SUC 125 MG/2 ML VIAL IM ONE (17:58)
--- NOTE | 2017-04-15 18:02 | ED.PDOC ---
History of Present Illness - General Chief Complaint: Back Pain or Injury Stated Complaint: low back throbbing Time Seen by Provider: 04/15/17 17:41 Source: patient, RN notes reviewed, Vital Signs reviewed, old records Exam Limitations: no limitations - History of Present Illness Initial Comments: Patient presents to ER with c/o low back pain and swelling. This is her chronic pain. No change from her chronic symptoms. She was seen here 2 days ago with the same symptoms. She was given Tramadol 50mg #14 & Baclofen at that visit. She is also on [place] 10mg from her pain management doctor. Report she is seeing one pain management doctor on Sunday, in 2 days, and another on Sunday for injections. She would like a shot or something to help with her pain. Timing/Duration: constant - for years Quality/Severity: moderate Back Pain Location: lumbar spine - and sacrum Back Pain Radiation: other - None Method of Injury/Prior Injury: unknown Improving Factors: medication Worsening Factors: movement Associated Symptoms: lower back pain Allergies/Adverse Reactions: Allergies Aspirin Allergy (Severe, Verified 04/13/17 13:09) Anaphylaxis Home Medications: Ambulatory Orders Levothyroxine Sodium [Synthroid] 0.137 mg PO 0700 11/21/15 Albuterol Sulfate [Proair Hfa] 2 puff INH Q8HR PRN 10/15/16 Alprazolam [Xanax] 1 mg PO DAILY 10/15/16 Baclofen 20 mg PO BID #14 tab 04/13/17 Tramadol HCl 50 mg PO Q6HRS PRN #14 tab 04/13/17 Review of Systems - Review of Systems Constitutional: States: no symptoms reported Respiratory: States: no symptoms reported Cardiology: States: no symptoms reported Gastrointestinal/Abdominal: States: no symptoms reported Musculoskeletal: States: see HPI, back pain Skin: States: no symptoms reported Neurological: States: no symptoms reported. Denies: numbness, paresthesia, tingling, weakness All other Systems: No Change from Baseline Past Medical History (General) - Patient Medical History Hx Seizures: No Hx Stroke: No Hx Dementia: No Hx Asthma: Yes Hx of COPD: No Hx Cardiac Disorders: No Hx Congestive Heart Failure: No Hx Pacemaker: No Hx Hypertension: No Hx Thyroid Disease: Yes Hx Diabetes: No Hx Gastroesophageal Reflux: Yes Hx Renal Disease: No Hx Cancer: No Hx of HIV: No Hx Hepatitis C: No Hx MRSA: Yes MRSA Source:: Wound - Vaccination History Hx Tetanus, Diphtheria Vaccination: Yes Hx Influenza Vaccination: Yes Hx Pneumococcal Vaccination: Yes - Social History Hx Tobacco Use: Yes Hx Chewing Tobacco Use: No Hx Alcohol Use: No Hx Substance Use: No Hx Substance Use Treatment: No Hx Depression: No Hx Physical Abuse: No Hx Emotional Abuse: No Hx Suspected Abuse: No - Female History Patient : No Family Medical History - Family History Mother Family History: No Known Name: Shari Murdock Age (years): 66 Living Status: Still Living Hx Family Asthma: No Hx Family Congestive Heart Failure: No Hx Family Hypertension: No Hx Family Stroke: No Hx Cardiac Disease: No Hx Family Diabetes: No Hx Family Cancer: No Hx Family;Other: Depression,back pain and spondilosis Physical Exam - Physical Exam General Appearance: Alert, Comfortable, No apparent distress, Obese, Well Developed, Well Groomed, Well Hydrated, Well Nourished Cardiovascular/Respiratory: no respiratory distress, other - Hypotensive Back Exam: no CVA tenderness, other - tender over sacrum Extremity Exam: no evidence of injury, normal range of motion Neurologic: no motor/sensory deficits, alert, normal mood/affect, oriented x 3 Skin Exam: normal color, warm/dry Comments: Vital Signs 04/15/17 17:48 Temperature 99.1 F Pulse Rate [ 108 H pulse ox] Respiratory 24 Rate Blood Pressure 91/56 [left brachial] O2 Sat by Pulse 90 L Oximetry Progress - Progress Progress: 04/15/17 17:58 Explained to patient that because her blood pressure is so low (91/56) and her oxygen saturation is also low (90%) I don't feel comfortable giving her any more medications that will suppress her breathing or lower her blood pressure ( narcotics). Will give her a shot of Solu-Medrol 125mg IM. 04/15/17 18:51 Patient reports she is feeling better and would like to go home. Departure - Departure Clinical Impression: Chronic low back pain Qualifiers: Back pain laterality: right Sciatica presence: without sciatica Qualified Code( s): M54.5 - Low back pain; G89.29 - Other chronic pain Time of Disposition: 18:52 Disposition: Discharge to Home or Self Care Condition: Good Departure Forms: ED Discharge - Pt. Copy, Patient Portal Self Enrollment Instructions: ESMER for Low Back Pain Diet: resume usual diet Activity: increase activity as tolerated Referrals: Venacnio Santana MD [Primary Care Provider] - 1-2 Weeks Home Medications: Ambulatory Orders Levothyroxine Sodium [Synthroid] 0.137 mg PO 0700 11/21/15 Albuterol Sulfate [Proair Hfa] 2 puff INH Q8HR PRN 10/15/16 Alprazolam [Xanax] 1 mg PO DAILY 10/15/16 Baclofen 20 mg PO BID #14 tab 04/13/17 Tramadol HCl 50 mg PO Q6HRS PRN #14 tab 04/13/17
[2017-04-15 18:56] VITALS: BP 103/71; O2SAT 97
== END 2017-04-15 18:56 | disposition home or self-care (01) ==
LOC: ER 17:34
DX: G89.29 Other chronic pain (principal); M54.5 Low back pain; Z87.891 Personal history of nicotine dependence; E07.9 Disorder of thyroid, unspecified; K21.9 Gastro-esophageal reflux disease without esophagitis; Z88.6 Allergy status to analgesic agent

== ENCOUNTER → 2017-04-17 | Outpatient (CLI) | payer OTHER | END | disposition home or self-care (01) | LOC: GMAM 10:20 | PROVIDERS: ATTEND Family Medicine | DX: E03.9 Hypothyroidism, unspecified (principal) ==

== ENCOUNTER → 2017-05-01 | Outpatient (CLI) | payer OTHER ==
--- NOTE | 2017-05-02 18:21 | RAD ---
EXAM DESCRIPTION: Lumbar Spine 5 Views CLINICAL HISTORY: LUMBAR RADICULOPATHY COMPARISON: None Available. TECHNIQUE: AP/lateral/ coned-down lateral/both obliques FINDINGS: A dorsal cord stimulator lead is observed in place. I see no evidence of spondylolysis or spondylolisthesis. Mild loss of disc height is observed at the L5-S1 level. The remaining disc spaces are maintained. The vertebral bodies are in good AP alignment. Partial sacralization of the L5 vertebral body is observed. IMPRESSION: Partial sacralization of the L5 vertebral body is observed with mild loss of disc at the L5-S1 level. Electronically signed by: Satya Nuñez MD 05/02/2017 6:19 PM [facility]
== END | disposition home or self-care (01) ==
LOC: RAD 11:37
PROVIDERS: ATTEND Family Medicine
DX: M54.16 Radiculopathy, lumbar region (principal)

== ENCOUNTER → 2017-05-08 | Outpatient (CLI) | payer OTHER | END | disposition home or self-care (01) | LOC: YCFC.O 15:57 | PROVIDERS: ATTEND Anesthesiology Pain Medicine | DX: Z79.891 Long term (current) use of opiate analgesic (principal) ==

== ENCOUNTER → 2017-05-31 | Outpatient (CLI) | payer OTHER ==
--- NOTE | 2017-05-31 10:05 | CT ---
EXAM DESCRIPTION: Abdoment/Pelvis w/o Contrast CLINICAL HISTORY: 42 years,Female,MICROSCOPIC HEMATURIA COMPARISON: May 09, 2015 TECHNIQUE: Multiple axial helical tomographic images were obtained of the abdomen and pelvis with out IV or oral contrast and then reconstructed sagittal coronal plane. This exam was performed using radiation doses that are As Low As Reasonably Achievable (ALARA). FINDINGS: The unenhanced liver is unremarkable. The spleen is unremarkable. The Pancreas is unremarkable. The adrenal glands are unremarkable. There are no stones seen in the urinary collection system. There are however numerous phleboliths in the pelvis is difficult to evaluate the distal ureter. The kidneys are unremarkable. The gallbladder is unremarkable. No free air free fluid masses or adenopathy. The included bowel are unremarkable. The lung bases are unremarkable. The surrounding soft tissues are unremarkable. The bony elements prior healed fracture the right sacral wing and pubic rami. Thoracic TENS unit partially included in the exam. Uterus and ovaries not seen. There are multiple surgical clips in the pelvis. Most likely surgically absent. IMPRESSION: No acute findings found. There is old fracture to the right pelvis. Do not see any stones in the urinary collecting system however there are numerous phleboliths in the pelvis and cannot exclude a tiny stone in the distal ureter. Electronically signed by: Satya Wolfe MD 05/31/2017 10:04 AM [employer]
== END | disposition home or self-care (01) ==
LOC: CT 08:48
PROVIDERS: ATTEND Family Medicine
DX: R31.9 Hematuria, unspecified (principal)

== ENCOUNTER 2017-06-15 14:17 | Emergency (ER) | payer OTHER ==
[2017-06-15] MEDS: HYDROcodone/APAP 5MG/217MG LIQ 10 ML UD PO ONE (15:39)
--- NOTE | 2017-06-15 16:10 | ED.PDOC ---
History of Present Illness - General Chief Complaint: Respiratory Problem Stated Complaint: SHORTNESS OF BREATH Time Seen by Provider: 06/15/17 14:34 Source: patient Exam Limitations: no limitations - History of Present Illness Comments: she comes here with sob and a fever. she states that she has been on a round of cefdinir and now on augmentin. STILL FEELS SOB AND HAS A PRODUCTIVE COUGH. Timing/Duration: week - TWO WEEKS Cough Quality/Degree: productive cough Possible Cause: occasional episodes Improving Factors: nothing Worsening Factors: nothing Associated Symptoms: cough, fever/chills, shortness of breath Respiratory Risk Factors: no cause identified Allergies/Adverse Reactions: Allergies Aspirin Allergy (Severe, Verified 04/13/17 13:09) Anaphylaxis Home Medications: Ambulatory Orders Levothyroxine Sodium [Synthroid] 0.137 mg PO 0700 11/21/15 Albuterol Sulfate [Proair Hfa] 2 puff INH Q8HR PRN 10/15/16 Alprazolam [Xanax] 1 mg PO DAILY 10/15/16 Baclofen 20 mg PO BID #14 tab 04/13/17 Tramadol HCl 50 mg PO Q6HRS PRN #14 tab 04/13/17 Azithromycin [Zithromax Z-Tom] 1 ea PO DAILY #1 pack 06/15/17 Dextromethorphan-Guaifenesin [Mucinex Dm Maximum Streng 60-1200 mg] 1 tab PO BID 5 Days #10 tab 06/15/17 Review of Systems - Review of Systems Constitutional: States: fever, weakness EENTM: States: no symptoms reported Respiratory: States: cough, short of breath Cardiology: States: no symptoms reported Gastrointestinal/Abdominal: States: no symptoms reported Genitourinary: States: no symptoms reported Musculoskeletal: States: no symptoms reported Skin: States: no symptoms reported Neurological: States: no symptoms reported Endocrine: States: no symptoms reported Hematologic/Lymphatic: States: no symptoms reported Past Medical History (General) - Patient Medical History Hx Seizures: No Hx Stroke: No Hx Dementia: No Hx Asthma: Yes Hx of COPD: No Hx Cardiac Disorders: No Hx Congestive Heart Failure: No Hx Pacemaker: No Hx Hypertension: No Hx Thyroid Disease: Yes Hx Diabetes: No Hx Gastroesophageal Reflux: Yes Hx Renal Disease: No Hx Cancer: No Hx of HIV: No Hx Hepatitis C: No Hx MRSA: Yes MRSA Source:: Wound - Vaccination History Hx Tetanus, Diphtheria Vaccination: Yes Hx Influenza Vaccination: Yes Hx Pneumococcal Vaccination: Yes - Social History Hx Tobacco Use: Yes Hx Chewing Tobacco Use: No Hx Alcohol Use: No Hx Substance Use: No Hx Substance Use Treatment: No Hx Depression: No Hx Physical Abuse: No Hx Emotional Abuse: No Hx Suspected Abuse: No - Female History Patient : No Family Medical History - Family History Mother Family History: No Known Name: Shari Murdock Age (years): 66 Living Status: Still Living Hx Family Asthma: No Hx Family Congestive Heart Failure: No Hx Family Hypertension: No Hx Family Stroke: No Hx Cardiac Disease: No Hx Family Diabetes: No Hx Family Cancer: No Hx Family;Other: Depression,back pain and spondilosis Physical Exam - Physical Exam General Appearance: Alert, Anxious, Ill Appearing Eye Exam: bilateral normal, bilateral abnormal EOM ENT Exam: normal ENT inspection Neck: non-tender, full range of motion, supple, normal inspection, trachea midline Respiratory: chest non-tender, decreased breath sounds, crackles Cardiovascular/Chest: normal peripheral pulses, regular rate, rhythm, no edema, no gallop, no JVD, no murmur Gastrointestinal/Abdominal: normal bowel sounds, non tender, soft, no organomegaly, no pulsatile mass Extremity: normal range of motion, non-tender, normal inspection, no pedal edema Neurologic: no motor/sensory deficits, alert, normal mood/affect, oriented x 3 Skin Exam: normal color Lymphatic: no adenopathy Progress - Results/Orders Results/Orders: THE CXR IS REPORTED NEGATIVE FOR ACUTE PROCESS. SHE DOES HAVE A 34940 WBC WITH A SHIFT OF 84%. THE REST OF THE LAB IS NORMAL. Departure - Departure Clinical Impression: Acute bronchitis Qualifiers: Bronchitis organism: other organism Qualified Code(s): J20.8 - Acute bronchitis due to other specified organisms Time of Disposition: 16:29 Disposition: Discharge to Home or Self Care Condition: Fair Departure Forms: ED Discharge - Pt. Copy, Patient Portal Self Enrollment Instructions: DI for Acute Bronchitis Diet: resume usual diet Activity: increase activity as tolerated Referrals: Venancio Santana MD [Primary Care Provider] - 1-2 Weeks Prescriptions: Azithromycin [Zithromax Z-Tom] 1 ea PO DAILY #1 pack Dextromethorphan-Guaifenesin [Mucinex Dm Maximum Streng 60-1200 mg] 1 tab PO BID 5 Days #10 tab Home Medications: Ambulatory Orders Levothyroxine Sodium [Synthroid] 0.137 mg PO 0700 11/21/15 Albuterol Sulfate [Proair Hfa] 2 puff INH Q8HR PRN 10/15/16 Alprazolam [Xanax] 1 mg PO DAILY 10/15/16 Baclofen 20 mg PO BID #14 tab 04/13/17 Tramadol HCl 50 mg PO Q6HRS PRN #14 tab 04/13/17 Azithromycin [Zithromax Z-Tom] 1 ea PO DAILY #1 pack 06/15/17 Dextromethorphan-Guaifenesin [Mucinex Dm Maximum Streng 60-1200 mg] 1 tab PO BID 5 Days #10 tab 06/15/17
--- NOTE | 2017-06-15 16:14 | RAD ---
EXAM DESCRIPTION: Chest,1 View CLINICAL HISTORY: SOB COMPARISON: January 09, 2017 FINDINGS: Cardiac silhouette is mildly enlarged. There is no focal parenchymal or pleural disease. Visualized osseous structures are within normal limits. No other change. IMPRESSION: Mild increase in size of the cardiac silhouette. Electronically signed by: Phi Ureña 06/15/2017 4:13 PM [facility]
[2017-06-15 17:03] VITALS: BP 155/62; O2SAT 93
[2017-06-15] MEDS ORDERED: LIDOCAINE 1% 10 ML VIAL INJ ONE (17:19)
[2017-06-16] MEDS: cefTRIAXone SODIUM 1 GM VIAL IM ONE (13:37)
== END 2017-06-15 17:02 | disposition home or self-care (01) ==
LOC: ER 14:17
DX: J20.8 Acute bronchitis due to other specified organisms (principal); E07.9 Disorder of thyroid, unspecified; K21.9 Gastro-esophageal reflux disease without esophagitis

== ENCOUNTER → 2017-07-17 | Outpatient (CLI) | payer OTHER | LOC: GMAM 12:20 | PROVIDERS: ATTEND Family Medicine | DX: E03.9 Hypothyroidism, unspecified (principal) ==

== ENCOUNTER → 2017-08-13 | Outpatient (CLI) | payer OTHER | LOC: GMAJS 16:48 | PROVIDERS: ATTEND Physician Assistant | DX: R10.84 Generalized abdominal pain (principal) ==

== ENCOUNTER 2017-08-24 12:41 | Emergency (ER) | payer OTHER ==
[2017-08-24 12:52] VITALS: BP 105/72; TEMP 97.7; O2SAT 94
[2017-08-24] MEDS ORDERED: TRIAMCINOLONE ACETONIDE INJ 40 MG/ML VIAL IM ONE (13:21)
[2017-08-24] MEDS ORDERED: KETOROLAC TROMETHAMINE INJ 60 MG/2 ML VIAL IM ONE (13:21)
--- NOTE | 2017-08-24 13:26 | ED.PDOC ---
History of Present Illness - General Chief Complaint: General Stated Complaint: chronic pain Time Seen by Provider: 08/24/17 13:11 Source: patient Exam Limitations: no limitations Additional Information: PT WITH CHRONIC L HIP PAIN. TAKES NORCO BUT RAN OUT. MOVED SOME FURNITURE YESTERDAY WITH ONSET OF PAIN. RAN OUT OF NORCO AND REQUESTS TRAMADOL. - History of Present Illness Severity: mild Improving Factors: nothing Worsening Factors: movement Associated Symptoms: denies symptoms Allergies/Adverse Reactions: Allergies Aspirin Allergy (Severe, Verified 08/24/17 12:52) Anaphylaxis Home Medications: Ambulatory Orders Levothyroxine Sodium [Synthroid] 0.137 mg PO 0700 11/21/15 Albuterol Sulfate [Proair Hfa] 2 puff INH Q8HR PRN 10/15/16 Alprazolam [Xanax] 1 mg PO DAILY 10/15/16 Baclofen 20 mg PO BID #14 tab 04/13/17 Tramadol HCl 50 mg PO Q6HRS PRN #14 tab 04/13/17 Azithromycin [Zithromax Z-Tom] 1 ea PO DAILY #1 pack 06/15/17 Dextromethorphan-Guaifenesin [Mucinex Dm Maximum Streng 60-1200 mg] 1 tab PO BID 5 Days #10 tab 06/15/17 Indomethacin 50 mg PO TID PRN #14 cap 08/24/17 Tramadol HCl [Ultram] 50 mg PO Q6HR PRN #15 tab 08/24/17 Review of Systems - Review of Systems Constitutional: Denies: chills, fever Gastrointestinal/Abdominal: States: no symptoms reported Genitourinary: States: no symptoms reported Musculoskeletal: Denies: back pain, joint swelling, neck pain Skin: States: no symptoms reported Neurological: Denies: numbness, weakness Past Medical History (General) - Patient Medical History Hx Seizures: No Hx Stroke: No Hx Dementia: No Hx Asthma: Yes Hx of COPD: No Hx Cardiac Disorders: No Hx Congestive Heart Failure: No Hx Pacemaker: No Hx Hypertension: No Hx Thyroid Disease: Yes Hx Diabetes: No Hx Gastroesophageal Reflux: Yes Hx Renal Disease: No Hx Cancer: No Hx of HIV: No Hx Hepatitis C: No Hx MRSA: Yes MRSA Source:: Wound Surgical History: Hysterectomy, other - Vaccination History Hx Tetanus, Diphtheria Vaccination: Yes Hx Influenza Vaccination: Yes Hx Pneumococcal Vaccination: Yes - Social History Hx Tobacco Use: Yes Hx Chewing Tobacco Use: No Hx Alcohol Use: No Hx Substance Use: No Hx Substance Use Treatment: No Hx Depression: No Hx Physical Abuse: No Hx Emotional Abuse: No Hx Suspected Abuse: No - Female History Patient : No Family Medical History - Family History Mother Family History: No Known Name: Shari Murdock Age (years): 66 Living Status: Still Living Hx Family Asthma: No Hx Family Congestive Heart Failure: No Hx Family Hypertension: No Hx Family Stroke: No Hx Cardiac Disease: No Hx Family Diabetes: No Hx Family Cancer: No Hx Family;Other: Depression,back pain and spondilosis Physical Exam - Physical Exam General Appearance: Obese Eye Exam: bilateral normal Back Exam: normal inspection, no CVA tenderness Extremity: normal range of motion, other - MILD TTP, L HIP, NO CREPITUS, NVI, GOOD DISTAL PULSES Neurologic: alert, normal mood/affect Skin Exam: normal color, warm/dry Lymphatic: no adenopathy Departure - Departure Clinical Impression: Hip pain, chronic Qualifiers: Laterality: left Qualified Code(s): M25.552 - Pain in left hip; G89.29 - Other chronic pain ICD-10 Supporting Text: ACUTE EXACERBATION OF CHRONIC PAIN Time of Disposition: 13:31 Disposition: Discharge to Home or Self Care Condition: Good Departure Forms: ED Discharge - Pt. Copy, Patient Portal Self Enrollment Instructions: Muscle Strain Referrals: Venancio Santana MD [Primary Care Provider] - 1-2 Weeks Prescriptions: Tramadol HCl [Ultram] 50 mg PO Q6HR PRN #15 tab PRN Reason: Pain Indomethacin 50 mg PO TID PRN #14 cap PRN Reason: Pain Home Medications: Ambulatory Orders Levothyroxine Sodium [Synthroid] 0.137 mg PO 0700 11/21/15 Albuterol Sulfate [Proair Hfa] 2 puff INH Q8HR PRN 10/15/16 Alprazolam [Xanax] 1 mg PO DAILY 10/15/16 Baclofen 20 mg PO BID #14 tab 04/13/17 Tramadol HCl 50 mg PO Q6HRS PRN #14 tab 04/13/17 Azithromycin [Zithromax Z-Tom] 1 ea PO DAILY #1 pack 06/15/17 Dextromethorphan-Guaifenesin [Mucinex Dm Maximum Streng 60-1200 mg] 1 tab PO BID 5 Days #10 tab 06/15/17 Indomethacin 50 mg PO TID PRN #14 cap 08/24/17 Tramadol HCl [Ultram] 50 mg PO Q6HR PRN #15 tab 08/24/17
== END 2017-08-24 13:43 | disposition home or self-care (01) ==
LOC: ER 12:41
DX: G89.29 Other chronic pain (principal); M25.552 Pain in left hip; E07.9 Disorder of thyroid, unspecified; K21.9 Gastro-esophageal reflux disease without esophagitis; J45.909 Unspecified asthma, uncomplicated; Z87.891 Personal history of nicotine dependence; Z79.899 Other long term (current) drug therapy
CPT/HCPCS: J1885; J3301

== ENCOUNTER → 2017-08-27 | Outpatient (CLI) | payer OTHER | LOC: GMAM 11:41 | PROVIDERS: ATTEND Family Medicine | DX: E03.9 Hypothyroidism, unspecified (principal) ==

== ENCOUNTER 2017-11-27 18:25 | Emergency (ER) | payer OTHER ==
[2017-11-27 18:44] VITALS: TEMP 98.3
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
[2017-11-27 20:02] VITALS: BP 111/80
[2017-11-27 22:01] VITALS: O2SAT 96
== END 2017-11-27 22:22 | disposition left against medical advice (07) ==
LOC: ER 18:25
DX: M25.552 Pain in left hip (principal); Z53.21 Procedure and treatment not carried out due to patient leaving prior to being seen by health care provider

== ENCOUNTER → 2017-12-14 | Outpatient (CLI) | payer OTHER | LOC: RESP 09:33 | PROVIDERS: ATTEND Family Medicine | DX: R00.2 Palpitations (principal); R55 Syncope and collapse ==

== ENCOUNTER 2017-12-22 13:01 | Emergency (ER) | payer OTHER ==
[2017-12-22 13:17] VITALS: TEMP 99.1
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
[2017-12-22] MEDS ORDERED: MORPHINE SULFATE INJ 10 MG/ML VIAL IV ONE (13:42)
[2017-12-22] MEDS ORDERED: ONDANSETRON INJ 4 MG/2 ML VIAL IV ONE (13:42)
[2017-12-22] MEDS ORDERED: SODIUM CHLORIDE 0.9% 1000ML 1,000 ML ONE (14:16)
[2017-12-22] MEDS ORDERED: SODIUM CHLORIDE 0.9% 1000ML 1,000 ML IVS ONE ×2 (14:21→16:47)
[2017-12-22] MEDS ORDERED: KETOROLAC TROMETHAMINE INJ 30 MG/ML VIAL IV ONE (15:02)
[2017-12-22 16:52] VITALS: BP 110/74; O2SAT 95
[2017-12-23] MEDS ORDERED: SODIUM CHLORIDE 0.9% 1000ML 1,000 ML ONE (09:20)
== END 2017-12-22 16:45 | disposition home or self-care (01) ==
LOC: ER 13:01
DX: S39.012A Strain of muscle, fascia and tendon of lower back, initial encounter (principal); E07.9 Disorder of thyroid, unspecified; Z79.899 Other long term (current) drug therapy; X50.0XXA Overexertion from strenuous movement or load, initial encounter; Y92.9 Unspecified place or not applicable
CPT/HCPCS: 36415; 80053; 81001; 85025; J1885; J2270; J2405; J7030

== ENCOUNTER → 2018-02-07 | Emergency (ER) | payer OTHER ==
[~2018-02-07] MED LIST: MORPHINE SULFATE INJ 10 MG/ML VIAL IM ONE; ONDANSETRON INJ 4 MG/2 ML VIAL IM ONE; methylPREDNISolone SODIUM SUC 125 MG/2 ML VIAL IM ONE
[2018-02-07 11:24] VITALS: BP 123/82; TEMP 99.2; O2SAT 95
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
== END | disposition home or self-care (01) ==
LOC: ER 11:14
DX: M16.12 Unilateral primary osteoarthritis, left hip (principal); G89.4 Chronic pain syndrome; R11.2 Nausea with vomiting, unspecified; E07.9 Disorder of thyroid, unspecified; F32.9 Major depressive disorder, single episode, unspecified; Z87.891 Personal history of nicotine dependence; Z88.6 Allergy status to analgesic agent; Z79.899 Other long term (current) drug therapy
CPT/HCPCS: J2270; J2405; J2930

== ENCOUNTER 2018-02-19 09:20 | Emergency (ER) | payer OTHER ==
[2018-02-19 10:12] VITALS: TEMP 97.4
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
[2018-02-19] MEDS ORDERED: MORPHINE SULFATE INJ 10 MG/ML VIAL IM ONE (10:19)
[2018-02-19] MEDS ORDERED: ONDANSETRON ODT 8 MG TAB SL ONE (10:19)
[2018-02-19 10:39] VITALS: BP 121/76; O2SAT 94
== END 2018-02-19 10:40 | disposition home or self-care (01) ==
LOC: ER 09:20
DX: G89.21 Chronic pain due to trauma (principal); M25.552 Pain in left hip; E07.9 Disorder of thyroid, unspecified; Z79.899 Other long term (current) drug therapy; Z79.891 Long term (current) use of opiate analgesic; Z87.891 Personal history of nicotine dependence; Z88.6 Allergy status to analgesic agent

== ENCOUNTER 2018-02-28 11:44 | Emergency (ER) | payer OTHER ==
[2018-02-28 12:08] VITALS: TEMP 97.9; O2SAT 94
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
--- NOTE | 2018-02-28 12:58 | RAD ---
EXAM DESCRIPTION: Hip,Left 2 Views CLINICAL HISTORY: 42 years, Female, pain COMPARISON: None TECHNIQUE: AP and frog leg lateral views of the hip FINDINGS: 2 views of the left hip reveal no fracture or dislocation. No lytic bone lesion. There is no joint space abnormality observed. Surgical clips are seen in the region of the pelvis. Deformity of the right superior and inferior pubic rami are consistent with old healed fractures. Degenerative changes of pubic symphysis. Right SI joint appears degenerative with sclerosis. IMPRESSION: Negative for fracture or dislocation of the left hip. See above. Electronically signed by: Zackery Vega MD 02/28/2018 12:57 PM CDT
--- NOTE | 2018-02-28 13:00 | RAD ---
EXAM DESCRIPTION: Lumbar Spine 3 Views CLINICAL HISTORY: pain COMPARISON: None Available. TECHNIQUE: AP/lateral/coned-down lateral FINDINGS: There is slight leftward curvature of the lumbar spine. TENS unit electrode lead wires extending toward the mid to lower thoracic spine. Frontal view shows intact pedicles and transverse processes. Degenerative spurring at the lower L-spine level. Transitional fifth lumbar vertebra is seen with fusion of the transverse process to the upper right hemisacrum. Sacrum itself appears intact with sclerotic appearance of the right more than left SI joints. Lateral view shows no vertebral compressions. Disc height is well-preserved except for narrowed transitional L5-S1 disc. Normal bony mineralization. No destructive lesion. IMPRESSION: Degenerative changes as described. Electronically signed by: Zackery Vega MD 02/28/2018 12:59 PM CDT
--- NOTE | 2018-02-28 13:02 | RAD ---
EXAM DESCRIPTION: Pelvis CLINICAL HISTORY: 42 years Female, pain COMPARISON: Previous x-ray pelvis January 31, 2016 FINDINGS: Right pelvic deformities are consistent with old healed fractures. Marked degenerative changes at the pubic symphysis. Degenerative changes are seen at the SI joints. The bones of the pelvic ring are negative for acute fracture. Hip joints appear intact. Surgical clips are seen in the lower abdomen region. IMPRESSION: No acute fracture. Electronically signed by: Zackery Vega MD 02/28/2018 1:01 PM CDT
[2018-02-28] MEDS ORDERED: ORPHENADRINE CITRATE 30 MG/ML AMP IM ONE (13:29)
[2018-02-28 14:05] VITALS: BP 115/79
== END 2018-02-28 13:50 | disposition home or self-care (01) ==
LOC: ER 11:44
DX: M54.5 Low back pain (principal); M25.552 Pain in left hip; G89.29 Other chronic pain; B37.2 Candidiasis of skin and nail; M47.817 Spondylosis without myelopathy or radiculopathy, lumbosacral region; E07.9 Disorder of thyroid, unspecified; Z87.891 Personal history of nicotine dependence; Z79.899 Other long term (current) drug therapy; Z88.6 Allergy status to analgesic agent
CPT/HCPCS: 72100; 72170; 73502; 80307; 81001; J2360

== ENCOUNTER 2018-03-07 09:15 | Emergency (ER) | payer OTHER ==
[2018-03-07] MEDS ORDERED: KETOROLAC TROMETHAMINE INJ 30 MG/ML VIAL IM ONE (09:51)
--- NOTE | 2018-03-07 09:56 | ED.PDOC ---
History of Present Illness - General Chief Complaint: Back Pain or Injury Time Seen by Provider: 03/07/18 09:21 Source: patient Exam Limitations: no limitations - History of Present Illness Initial Comments: Patient presents with acute on chronic left hip pain. It is constant, aching in nature, non-radiating, worse with movement, better with rest, multiple previous episodes. She has an appointment with a surgeon on March 15. She has already taken Percocet and Methacarbamol today. She has had Toradol before with success. No other complaints. Timing/Duration: changing over time Severity: moderate Improving Factors: rest Worsening Factors: movement Associated Symptoms: denies symptoms Allergies/Adverse Reactions: Allergies Aspirin Allergy (Severe, Verified 02/07/18 11:24) Anaphylaxis Home Medications: Ambulatory Orders Levothyroxine Sodium [Synthroid] 0.137 mg PO 0700 11/21/15 Albuterol Sulfate [Proair Hfa] 2 puff INH Q8HR PRN 10/15/16 Alprazolam [Xanax] 1 mg PO DAILY 10/15/16 Baclofen 20 mg PO BID #14 tab 04/13/17 Dextromethorphan-Guaifenesin [Mucinex Dm Maximum Streng 60-1200 mg] 1 tab PO BID 5 Days #10 tab 06/15/17 Tramadol HCl 50 mg PO Q6HRS #20 tab 12/22/17 predniSONE 20 mg PO DAILY 10 Days tab 02/07/18 Ondansetron [Zofran Odt] 4 mg PO Q6HRS PRN 3 Days #10 tab 02/19/18 Clotrimazole W/ Betamethasone [Clotrimazole/Betamethason 1-0.05 %] 1 cre EX BID #1 cre 02/28/18 Methocarbamol [Robaxin] 750 mg PO TID #10 tab 02/28/18 Tramadol HCl 50 mg PO Q6HR #7 tab 02/28/18 Review of Systems - Review of Systems Constitutional: States: no symptoms reported EENTM: States: no symptoms reported Respiratory: States: no symptoms reported Cardiology: States: no symptoms reported Gastrointestinal/Abdominal: States: no symptoms reported Genitourinary: States: no symptoms reported Musculoskeletal: States: see HPI Skin: States: no symptoms reported Neurological: States: no symptoms reported Endocrine: States: no symptoms reported Hematologic/Lymphatic: States: no symptoms reported Past Medical History (General) - Patient Medical History Hx Seizures: No Hx Stroke: No Hx Dementia: No Hx Asthma: No Hx of COPD: No Hx Cardiac Disorders: No Hx Congestive Heart Failure: No Hx Pacemaker: No Hx Hypertension: No Hx Thyroid Disease: Yes Hx Diabetes: No Hx Gastroesophageal Reflux: No Hx Renal Disease: No Hx Cancer: No Hx of HIV: No Hx Hepatitis C: No Hx MRSA: No MRSA Source:: Wound - Vaccination History Hx Tetanus, Diphtheria Vaccination: Yes Hx Influenza Vaccination: No Hx Pneumococcal Vaccination: No - Social History Hx Tobacco Use: Yes Hx Chewing Tobacco Use: No Hx Alcohol Use: No Hx Substance Use: No Hx Substance Use Treatment: No Hx Depression: No Hx Physical Abuse: No Hx Emotional Abuse: No Hx Suspected Abuse: No - Female History Patient : No Family Medical History - Family History Mother Family History: No Known Name: Shari Murdock Age (years): 66 Living Status: Still Living Hx Family Asthma: No Hx Family Congestive Heart Failure: No Hx Family Hypertension: No Hx Family Stroke: No Hx Cardiac Disease: No Hx Family Diabetes: No Hx Family Cancer: No Hx Family;Other: Depression,back pain and spondilosis Physical Exam - Physical Exam General Appearance: Alert Respiratory: lungs clear, normal breath sounds Cardiovascular/Chest: normal peripheral pulses, regular rate, rhythm, no edema Gastrointestinal/Abdominal: normal bowel sounds, non tender, soft Extremity: other - Cross leg raise is normal. Straight leg raises cause pain in the left hip as does flexion of the left hip. There is 5/5 strength to flexion and extension of the hips bilaterally with full sensation in both lower extremities. Full AROM although it is painful in the left hip. Left hip is mildly TTP. Progress - Progress Progress: 03/07/18 09:59 Toradol 30 mg IM x one. Departure - Departure Clinical Impression: Left hip pain, Tobacco abuse counseling Disposition: Discharge to Home or Self Care Condition: Good Departure Forms: ED Discharge - Pt. Copy, Patient Portal Self Enrollment Instructions: DI for Low Back Pain Diet: resume usual diet Activity: other - as per your primary care doctor Referrals: Venancio Santana MD [Primary Care Provider] - 1-2 Weeks Home Medications: Ambulatory Orders Levothyroxine Sodium [Synthroid] 0.137 mg PO 0700 06/19/16 Albuterol Sulfate [Proair Hfa] 2 puff INH Q8HR PRN 10/15/16 Alprazolam [Xanax] 1 mg PO DAILY 10/15/16 Baclofen 20 mg PO BID #14 tab 04/13/17 Dextromethorphan-Guaifenesin [Mucinex Dm Maximum Streng 60-1200 mg] 1 tab PO BID 5 Days #10 tab 06/15/17 Tramadol HCl 50 mg PO Q6HRS #20 tab 12/22/17 predniSONE 20 mg PO DAILY 10 Days tab 02/07/18 Ondansetron [Zofran Odt] 4 mg PO Q6HRS PRN 3 Days #10 tab 02/19/18 Clotrimazole W/ Betamethasone [Clotrimazole/Betamethason 1-0.05 %] 1 cre EX BID #1 cre 02/28/18 Methocarbamol [Robaxin] 750 mg PO TID #10 tab 02/28/18 Tramadol HCl 50 mg PO Q6HR #7 tab 02/28/18 Additional Instructions: Stop smoking. Follow up with your surgeon as scheduled.
[2018-03-07 09:57] VITALS: BP 105/71; TEMP 99; O2SAT 97
== END 2018-03-07 10:18 | disposition home or self-care (01) ==
LOC: ER 09:15
DX: M25.552 Pain in left hip (principal); G89.29 Other chronic pain; E07.9 Disorder of thyroid, unspecified; F17.200 Nicotine dependence, unspecified, uncomplicated; Z79.899 Other long term (current) drug therapy; Z88.6 Allergy status to analgesic agent
CPT/HCPCS: 99406; J1885

== ENCOUNTER → 2018-03-07 | Outpatient (CLI) | payer OTHER ==
--- NOTE | 2018-03-07 13:52 | CT ---
EXAM DESCRIPTION: Lower Extremity CLINICAL HISTORY: LEFT HIP PAIN COMPARISON: None. TECHNIQUE: Noncontrast transaxial CT images of the left hip are obtained with coronal and sagittal reconstructed images. 3-D reconstructed images of the osseous structures are obtained. This exam was performed according to our departmental dose-optimization program, which includes automated exposure control, adjustment of the mA and/or kV according to patient size and/or use of iterative reconstruction technique . FINDINGS: No acute fracture, focal bone destruction, or joint dislocation is seen in the left hip. No significant joint space narrowing. No advanced arthrosis. No flattening of the articular surface of the femoral head. Remote healed fractures of the right superior and inferior pubic rami are partly visualized. No acute fracture of the left pubic rami or visualized pelvis is seen. Nonvisualization of the uterus suggests surgical absence. Several surgical clips in the pelvis are seen. Mild colon diverticulosis without associated inflammatory changes or fluid collections. Soft tissue and musculature around the left hip are unremarkable. IMPRESSION: Unremarkable noncontrast CT of the left hip. Remote healed fractures of the right superior and inferior pubic rami. Other findings as described above. Electronically signed by: Daniele Page MD 03/07/2018 1:51 PM CDT
== END ==
LOC: CT 09:30
PROVIDERS: ATTEND Family Medicine
DX: M25.552 Pain in left hip (principal)

== ENCOUNTER → 2018-03-11 | Outpatient (CLI) | payer OTHER | LOC: GMAM 17:05 | PROVIDERS: ATTEND Family Medicine | DX: Z79.899 Other long term (current) drug therapy (principal) ==

== ENCOUNTER 2018-03-19 15:35 | Emergency (ER) | payer OTHER ==
[2018-03-19 15:46] VITALS: TEMP 99.3
[2018-03-19] MEDS ORDERED: KETOROLAC TROMETHAMINE INJ 30 MG/ML VIAL IM ONE (16:00)
[2018-03-19] MEDS ORDERED: traMADol HCL 50 MG TAB PO ONE (16:00)
--- NOTE | 2018-03-19 16:03 | ED.PDOC ---
History of Present Illness - General Chief Complaint: General Stated Complaint: Bilat hip discomfort Time Seen by Provider: 03/19/18 15:51 Source: patient Exam Limitations: no limitations - History of Present Illness Initial Comments: the patient is a 42-year-old female presenting to the emergency room secondary to an acute flare of her chronic low back pain. She does have very well-documented chronic low back pain with intermittent sciatica bilaterally. This flare started with the cold front. No falls. No new trauma. No neurological changes. Pain is diffuse in her low back. Severity: moderate Improving Factors: medication Worsening Factors: movement Associated Symptoms: denies symptoms Allergies/Adverse Reactions: Allergies Aspirin Allergy (Severe, Verified 03/19/18 15:57) Anaphylaxis Home Medications: Ambulatory Orders Cyclobenzaprine HCl 10 mg PO TID 03/19/18 Gabapentin [Neurontin] 300 mg PO TID 03/19/18 HYDROcodone 10MG/APAP 325MG [[place] 10/325] 1 tab PO Q4H PRN 03/19/18 Levothyroxine Sodium [Synthroid] 200 mcg PO DAILY 03/19/18 Metoprolol Succinate [Toprol Xl] 25 mg PO DAILY 03/19/18 Pregabalin [Lyrica] 200 mg PO BID 03/19/18 Risperidone [Risperidone] 1.5 tablet PO BID 03/19/18 Tramadol HCl 50 mg PO Q8HR PRN #20 tab 03/19/18 Trazodone HCl 200 mg PO BEDTIME 03/19/18 cloNAZepam [Klonopin] 0.5 mg PO BID 03/19/18 Review of Systems - Review of Systems Constitutional: States: no symptoms reported EENTM: States: no symptoms reported Respiratory: States: no symptoms reported Cardiology: States: no symptoms reported Gastrointestinal/Abdominal: States: no symptoms reported Genitourinary: States: no symptoms reported Musculoskeletal: States: back pain Skin: States: no symptoms reported Neurological: States: see HPI Endocrine: States: no symptoms reported All other Systems: No Change from Baseline Past Medical History (General) - Patient Medical History Hx Seizures: No Hx Stroke: No Hx Dementia: No Hx Asthma: No Hx of COPD: No Hx Cardiac Disorders: No Hx Congestive Heart Failure: No Hx Pacemaker: No Hx Hypertension: No Hx Thyroid Disease: Yes Hx Diabetes: No Hx Gastroesophageal Reflux: No Hx Renal Disease: No Hx Cancer: No Hx of HIV: No Hx Hepatitis C: No Hx MRSA: No MRSA Source:: Wound - Vaccination History Hx Tetanus, Diphtheria Vaccination: Yes Hx Influenza Vaccination: No Hx Pneumococcal Vaccination: No - Social History Hx Tobacco Use: Yes Hx Chewing Tobacco Use: No Hx Alcohol Use: No Hx Substance Use: No Hx Substance Use Treatment: No Hx Depression: No Hx Physical Abuse: No Hx Emotional Abuse: No Hx Suspected Abuse: No - Female History Patient : No Family Medical History - Family History Mother Family History: No Known Name: Shari Murdock Age (years): 66 Living Status: Still Living Hx Family Asthma: No Hx Family Congestive Heart Failure: No Hx Family Hypertension: No Hx Family Stroke: No Hx Cardiac Disease: No Hx Family Diabetes: No Hx Family Cancer: No Hx Family;Other: Depression,back pain and spondilosis Physical Exam - Physical Exam General Appearance: Alert, No apparent distress Eye Exam: bilateral normal Ears, Nose, Throat: hearing grossly normal, normal pharynx Neck: non-tender, supple Respiratory: lungs clear, normal breath sounds, no respiratory distress, no accessory muscle use Cardiovascular/Chest: normal peripheral pulses, no edema, other - mild sinus tachycardia Peripheral Pulses: radial,right: 2+, radial,left: 2+ Gastrointestinal/Abdominal: non tender, soft Rectal Exam: deferred Back Exam: muscle spasm Extremity: non-tender, normal inspection, no pedal edema, normal capillary refill Neurologic: awnings mechanic II-XII nml as tested, alert, normal mood/affect, oriented x 3 Skin Exam: normal color Comments: Vital Signs - 24 hr 03/19/18 15:44 Temperature 99.3 F Pulse Rate [ 112 H Right Radial] Respiratory 18 Rate Blood Pressure 95/61 [Right Arm] O2 Sat by Pulse 95 Oximetry Progress - Progress Progress: 03/19/18 16:03 the patient is a 42-year-old female with long-standing chronic low back pain and pelvic pain presenting secondary to an acute flare of these. She does have mild intermittent sciatica which is not new either. She is already on multiple medications to treat this. Given this flare the patient is going to receive a dose of Toradol and she'll be written for short prescription of tramadol for as needed use additionally. She does need to keep herself well- hydrated. She needs to keep follow-up with her primary care doctor as well. her blood pressures need to be followed. They are borderline low here. This is likely due to the medications that she is currently taking. It does need to be followed with her primary care doctor. No clinical evidence of overt infection at this time. No evidence of fluid overload. ER warnings were given. Departure - Departure Clinical Impression: Low back pain with right-sided sciatica Qualifiers: Chronicity: unspecified Back pain laterality: bilateral Qualified Code(s): M54.41 - Lumbago with sciatica, right side Disposition: Discharge to Home or Self Care Condition: Fair Departure Forms: ED Discharge - Pt. Copy, Patient Portal Self Enrollment Diet: regular diet Activity: increase activity as tolerated Referrals: Venancio Santana MD [Primary Care Provider] - 1-2 Weeks Prescriptions: Tramadol HCl 50 mg PO Q8HR PRN #20 tab PRN Reason: Moderate Pain Home Medications: Ambulatory Orders Cyclobenzaprine HCl 10 mg PO TID 03/19/18 Gabapentin [Neurontin] 300 mg PO TID 03/19/18 HYDROcodone 10MG/APAP 325MG [[place] [address]] 1 tab PO Q4H PRN 03/19/18 Levothyroxine Sodium [Synthroid] 200 mcg PO DAILY 03/19/18 Metoprolol Succinate [Toprol Xl] 25 mg PO DAILY 03/19/18 Pregabalin [Lyrica] 200 mg PO BID 03/19/18 Risperidone [Risperidone] 1.5 tablet PO BID 03/19/18 Tramadol HCl 50 mg PO Q8HR PRN #20 tab 03/19/18 Trazodone HCl 200 mg PO BEDTIME 03/19/18 cloNAZepam [Klonopin] 0.5 mg PO BID 03/19/18 Additional Instructions: the patient is a 42-year-old female with long-standing chronic low back pain and pelvic pain presenting secondary to an acute flare of these. She does have mild intermittent sciatica which is not new either. She is already on multiple medications to treat this. Given this flare the patient is going to receive a dose of Toradol and she'll be written for short prescription of tramadol for as needed use additionally. She does need to keep herself well- hydrated. She needs to keep follow-up with her primary care doctor as well. her blood pressures need to be followed. They are borderline low here. This is likely due to the medications that she is currently taking. It does need to be followed with her primary care doctor. No clinical evidence of overt infection at this time. No evidence of fluid overload. topical heat as well as stretching exercises may prove beneficial. ER warnings were given.
[2018-03-19 16:24] VITALS: BP 110/74; O2SAT 93
== END 2018-03-19 16:25 | disposition home or self-care (01) ==
LOC: ER 15:35
DX: M54.41 Lumbago with sciatica, right side (principal); E07.9 Disorder of thyroid, unspecified; Z87.891 Personal history of nicotine dependence; Z79.899 Other long term (current) drug therapy; Z88.6 Allergy status to analgesic agent

== ENCOUNTER → 2018-05-14 | Outpatient (CLI) | payer OTHER | LOC: GMAM 15:34 | PROVIDERS: ATTEND Family Medicine | DX: R10.84 Generalized abdominal pain (principal) ==

== ENCOUNTER → 2018-05-16 | Outpatient (CLI) | payer OTHER ==
--- NOTE | 2018-05-16 08:36 | US ---
EXAM DESCRIPTION: Gall Bladder CLINICAL HISTORY: ABD PAIN COMPARISON: None Available. TECHNIQUE: Right upper quadrant ultrasound FINDINGS: Pancreas: Visualized portions of the pancreas are unremarkable. Bowel gas obscures some areas. Aorta/inferior vena cava: No aortic aneurysm. Normal inferior vena cava. Liver: The liver is homogeneous in texture with increased echogenicity of the hepatic parenchyma. No focal liver lesion or intrahepatic bile duct dilatation. No liver surface irregularity. Normal appearance of the portal vein and hepatic veins. Gallbladder: Gallbladder appears normal with no intraluminal stones or wall thickening. Common bile duct: Normal caliber measuring 2.1 mm. Right kidney: Renal length is 10.5 cm. Normal cortical echogenicity. Cortical thickness is normal. No hydronephrosis is seen. No renal mass or shadowing calculus. IMPRESSION: No diagnostic abnormality is identified on sonographic examination of the right upper quadrant. Electronically signed by: Zackery Vega MD 05/16/2018 8:35 AM LEASE OUT MAN
== END ==
LOC: US 08:00
PROVIDERS: ATTEND Family Medicine
DX: R10.84 Generalized abdominal pain (principal)

== ENCOUNTER 2018-07-02 11:38 | Emergency (ER) | payer OTHER ==
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
[2018-07-02 12:14] VITALS: BP 106/78; TEMP 97.6; O2SAT 98
[2018-07-02] MEDS ORDERED: KETOROLAC TROMETHAMINE INJ 30 MG/ML VIAL IM ONE (12:14)
== END 2018-07-02 12:34 | disposition home or self-care (01) ==
LOC: ER 11:38
DX: M54.5 Low back pain (principal); M62.830 Muscle spasm of back; E07.9 Disorder of thyroid, unspecified; Z87.891 Personal history of nicotine dependence; Z79.899 Other long term (current) drug therapy; Z88.6 Allergy status to analgesic agent

== ENCOUNTER 2018-07-07 16:41 | Emergency (ER) | payer OTHER ==
[2018-07-07] MEDS ORDERED: PROCHLORPERAZINE INJ 10 MG/2 ML VIAL IV ONE (19:13)
[2018-07-07] MEDS ORDERED: DICYCLOMINE HCL INJ 20 MG/2 ML AMP IM ONE (19:13)
[2018-07-07] MEDS ORDERED: LACTATED RINGERS 1,000 ML IVS ONE (19:13)
--- NOTE | 2018-07-07 19:37 | ED.PDOC ---
History of Present Illness - General Chief Complaint: GI Problem Stated Complaint: Diarrhea x 1, vomiting yesterday Time Seen by Provider: 07/07/18 19:12 Source: patient Exam Limitations: no limitations - History of Present Illness Initial Comments: Juani Porras 43 y/o female stated that she had N/V/D since yesterday several times and unable to keep anything down .Sister with same illness.No recent antibiotics Timing/Duration: other - 48 hours Improving Factors: nothing Worsening Factors: eating Associated Symptoms: other - see hpi Allergies/Adverse Reactions: Allergies Aspirin Allergy (Severe, Verified 07/02/18 11:51) Anaphylaxis Home Medications: Ambulatory Orders Cyclobenzaprine HCl 10 mg PO TID 03/19/18 Gabapentin [Neurontin] 300 mg PO TID 03/19/18 HYDROcodone 10MG/APAP 325MG [[place] ] 1 tab PO Q4H PRN 03/19/18 Levothyroxine Sodium [Synthroid] 200 mcg PO DAILY 03/19/18 Metoprolol Succinate [Toprol Xl] 25 mg PO DAILY 03/19/18 Pregabalin [Lyrica] 200 mg PO BID 03/19/18 Risperidone 1.5 tablet PO BID 03/19/18 Tramadol HCl 50 mg PO Q8HR PRN #20 tab 03/19/18 Trazodone HCl [Trazodone Hydrochloride] 200 mg PO BEDTIME 03/19/18 cloNAZepam [Klonopin] 0.5 mg PO BID 03/19/18 Baclofen 20 mg PO BID PRN #20 tab 07/02/18 Tramadol HCl 50 mg PO TID PRN #20 tab 07/02/18 Review of Systems - Review of Systems Constitutional: States: no symptoms reported EENTM: States: no symptoms reported Respiratory: States: no symptoms reported Cardiology: States: no symptoms reported Gastrointestinal/Abdominal: States: see HPI, diarrhea, vomiting Musculoskeletal: States: no symptoms reported Skin: States: no symptoms reported Neurological: States: no symptoms reported Endocrine: States: no symptoms reported Hematologic/Lymphatic: States: no symptoms reported All other Systems: Reviewed and Negative, No Change from Baseline Past Medical History (General) - Patient Medical History Hx Seizures: No Hx Stroke: No Hx Dementia: No Hx Asthma: No Hx of COPD: No Hx Cardiac Disorders: No Hx Congestive Heart Failure: No Hx Pacemaker: No Hx Hypertension: Yes Hx Thyroid Disease: Yes Hx Diabetes: No Hx Gastroesophageal Reflux: No Hx Renal Disease: No Hx Cancer: No Hx of HIV: No Hx Hepatitis C: No Hx MRSA: No MRSA Source:: Wound Surgical History: other - hysterectomy - Vaccination History Hx Tetanus, Diphtheria Vaccination: Yes Hx Influenza Vaccination: No Hx Pneumococcal Vaccination: No - Social History Hx Tobacco Use: Yes Hx Chewing Tobacco Use: No Hx Alcohol Use: No Hx Substance Use: Yes - in the past Hx Substance Use Treatment: No Hx Depression: No Hx Physical Abuse: No Hx Emotional Abuse: No Hx Suspected Abuse: No - Female History Patient : No Family Medical History - Family History Mother Family History: No Known Name: Shari Murdock Age (years): 66 Living Status: Still Living Hx Family Asthma: No Hx Family Congestive Heart Failure: No Hx Family Hypertension: No Hx Family Stroke: No Hx Cardiac Disease: No Hx Family Diabetes: No Hx Family Cancer: No Hx Family;Other: Depression,back pain and spondilosis Physical Exam - Physical Exam General Appearance: Alert, Anxious, Comfortable, No apparent distress Eye Exam: bilateral normal Ears, Nose, Throat: hearing grossly normal, normal ENT inspection, normal pharynx Neck: full range of motion, supple, normal inspection Respiratory: chest non-tender, lungs clear, normal breath sounds, no respiratory distress Cardiovascular/Chest: normal peripheral pulses, regular rate, rhythm, no murmur Peripheral Pulses: radial,right: 2+ Gastrointestinal/Abdominal: normal bowel sounds, non tender, soft, no organomegaly Back Exam: no CVA tenderness, no vertebral tenderness Neurologic: alert, oriented x 3 Skin Exam: normal color, warm/dry Progress - Progress Progress: 07/07/18 19:41 Vital Signs - 8 hr 07/07/18 18:43 Temperature 97.8 F Pulse Rate [ 115 H Left Radial] Respiratory 20 Rate Blood Pressure 108/81 [Left Arm] O2 Sat by Pulse 97 Oximetry - Results/Orders Results/Orders: 07/07/18 19:13 IV Care:Saline Lock per Protoc QSHIFT CLOSTRIDIUM DIFFICILE AG/TOXIN Urgent Laboratory Results - last 24 hr 07/07/18 07/07/18 07/07/18 18:55 18:55 18:55 WBC 5.7 RBC 4.91 Hgb 15.7 Hct 45.8 MCV 93.2 MCH 31.9 H MCHC 34.2 RDW 14.4 Plt Count 411 H MPV 8.4 Absolute Neuts (auto) 3.00 Absolute Lymphs (auto) 1.70 Absolute Monos (auto) 0.60 Absolute Eos (auto) 0.30 Absolute Basos (auto) 0.10 Neutrophils % 52.8 Lymphocytes % 30.6 Monocytes % 11.2 H Eosinophils % 4.4 Basophils % 1.0 Sodium 135 Potassium 3.1 L Chloride 104 Carbon Dioxide 20 L Anion Gap 14.1 BUN < 5 L Creatinine < 0.40 L BUN/Creatinine Ratio 12.0 Random Glucose 102 Serum Osmolality 267.6 L Calcium 8.6 Total Bilirubin 0.5 AST 66 H ALT 73 H Alkaline Phosphatase 90 Serum Total Protein 7.5 Albumin 4.0 Globulin 3.5 Albumin/Globulin Ratio 1.1 Lipase 28 Urine Color Urine Appearance Urine pH Ur Specific [place] Urine Protein Urine Glucose (UA) Urine Ketones Urine Blood Urine Nitrite Urine Bilirubin Urine Urobilinogen Ur Leukocyte Esterase Urine RBC Urine WBC Ur Epithelial Cells Urine Bacteria Urine Opiates Screen Negative Urine Barbiturates Negative Ur Phencyclidine Scrn Negative U Amphetamin/Meth Scrn Negative U Benzodiazepines Scrn Negative U Cocaine Metab Screen Negative U Cannabinoids Screen Negative 07/07/18 18:55 WBC RBC Hgb Hct MCV MCH MCHC RDW Plt Count MPV Absolute Neuts (auto) Absolute Lymphs (auto) Absolute Monos (auto) Absolute Eos (auto) Absolute Basos (auto) Neutrophils % Lymphocytes % Monocytes % Eosinophils % Basophils % Sodium Potassium Chloride Carbon Dioxide Anion Gap BUN Creatinine BUN/Creatinine Ratio Random Glucose Serum Osmolality Calcium Total Bilirubin AST ALT Alkaline Phosphatase Serum Total Protein Albumin Globulin Albumin/Globulin Ratio Lipase Urine Color Yellow Urine Appearance Clear Urine pH 5.5 Ur Specific [place]ran 1.010 Urine Protein Negative Urine Glucose (UA) Negative Urine Ketones Negative Urine Blood Trace-intact H Urine Nitrite Negative Urine Bilirubin Negative Urine Urobilinogen 0.2 Ur Leukocyte Esterase Negative Urine RBC 0 Urine WBC 0-1 Ur Epithelial Cells 1-3 Urine Bacteria Rare Urine Opiates Screen Urine Barbiturates Ur Phencyclidine Scrn U Amphetamin/Meth Scrn U Benzodiazepines Scrn U Cocaine Metab Screen U Cannabinoids Screen Discuss test result with patient Departure - Departure Clinical Impression: Gastroenteritis and colitis, viral Time of Disposition: 20:59 Disposition: Discharge to Home or Self Care Condition: Fair Departure Forms: ED Discharge - Pt. Copy, Patient Portal Self Enrollment Diet: bland diet, other - AVOID GREASY SPICY FOODS UNTIL BETTER Referrals: Venancio Santana MD [Primary Care Provider] - 1-2 Weeks Home Medications: Ambulatory Orders Cyclobenzaprine HCl 10 mg PO TID 03/19/18 Gabapentin [Neurontin] 300 mg PO TID 03/19/18 HYDROcodone 10MG/APAP 325MG [[place] ] 1 tab PO Q4H PRN 03/19/18 Levothyroxine Sodium [Synthroid] 200 mcg PO DAILY 03/19/18 Metoprolol Succinate [Toprol Xl] 25 mg PO DAILY 03/19/18 Pregabalin [Lyrica] 200 mg PO BID 03/19/18 Risperidone 1.5 tablet PO BID 03/19/18 Tramadol HCl 50 mg PO Q8HR PRN #20 tab 03/19/18 Trazodone HCl [Trazodone Hydrochloride] 200 mg PO BEDTIME 03/19/18 cloNAZepam [Klonopin] 0.5 mg PO BID 03/19/18 Baclofen 20 mg PO BID PRN #20 tab 07/02/18 Tramadol HCl 50 mg PO TID PRN #20 tab 07/02/18 Additional Instructions: Continue with all home medications;BRAT DIET-banana,steamed rice,applesauce,iced tea or fany aruna;return to ER as needed
[2018-07-07] MEDS ORDERED: SODIUM CHLORIDE 0.9% 500ML 500 ML IVS ONE (20:25)
[2018-07-07 20:58] VITALS: TEMP 98
[2018-07-07] MEDS ORDERED: ONDANSETRON ODT (ER DISP) 8 MG TAB PO ONE (20:59)
[2018-07-07 21:03] VITALS: BP 106/91; O2SAT 97
== END 2018-07-07 21:11 | disposition home or self-care (01) ==
LOC: ER 16:41
DX: A08.4 Viral intestinal infection, unspecified (principal); I10 Essential (primary) hypertension; E07.9 Disorder of thyroid, unspecified; Z87.891 Personal history of nicotine dependence; Z79.899 Other long term (current) drug therapy; Z88.6 Allergy status to analgesic agent
CPT/HCPCS: 80053; 80307; 81001; 83690; 85025; 87502; J0500; J0780; J7040; J7120

== ENCOUNTER 2018-07-08 13:36 | Emergency (ER) | payer OTHER ==
[2018-07-08 13:55] VITALS: BP 111/75; TEMP 97.5; O2SAT 96
[2018-07-08] MEDS ORDERED: predniSONE 20 MG TAB PO ONE (14:00)
[2018-07-08] MEDS ORDERED: traMADol HCL 50 MG TAB PO ONE (14:00)
--- NOTE | 2018-07-08 14:04 | ED.PDOC ---
History of Present Illness - General Chief Complaint: General Stated Complaint: pelvic pain Time Seen by Provider: 07/08/18 13:59 Source: patient Exam Limitations: no limitations - History of Present Illness Initial Comments: the patient's 43-year-old female presenting to the emergency room secondary to right lateral hip pain being present for the last 2-3 days. She actually appears to have a mild trochanteric bursitis on that side. Passive and active range of motion are preserved as well as strength. No evidence of any trauma. She has tenderness directly over the bursa. No evidence of any obvious impingement. Severity: mild Improving Factors: nothing Worsening Factors: movement Associated Symptoms: denies symptoms Allergies/Adverse Reactions: Allergies Aspirin Allergy (Severe, Verified 07/08/18 13:50) Anaphylaxis Home Medications: Ambulatory Orders Cyclobenzaprine HCl 10 mg PO TID 03/19/18 Gabapentin [Neurontin] 300 mg PO TID 03/19/18 HYDROcodone 10MG/APAP 325MG [[place] 10/325] 1 tab PO Q4H PRN 03/19/18 Levothyroxine Sodium [Synthroid] 200 mcg PO DAILY 03/19/18 Metoprolol Succinate [Toprol Xl] 25 mg PO DAILY 03/19/18 Pregabalin [Lyrica] 200 mg PO BID 03/19/18 Risperidone 1.5 tablet PO BID 03/19/18 Tramadol HCl 50 mg PO Q8HR PRN #20 tab 03/19/18 Trazodone HCl [Trazodone Hydrochloride] 200 mg PO BEDTIME 03/19/18 cloNAZepam [Klonopin] 0.5 mg PO BID 03/19/18 Baclofen 20 mg PO BID PRN #20 tab 07/02/18 Tramadol HCl 50 mg PO TID PRN #20 tab 07/02/18 Tramadol HCl 50 mg PO Q8HR PRN #10 tab 07/08/18 predniSONE [Prednisone] 20 mg PO DAILY #3 tab 07/08/18 Review of Systems - Review of Systems Constitutional: States: no symptoms reported EENTM: States: no symptoms reported Respiratory: States: no symptoms reported Cardiology: States: no symptoms reported Gastrointestinal/Abdominal: States: no symptoms reported Genitourinary: States: no symptoms reported Musculoskeletal: States: see HPI Skin: States: no symptoms reported Neurological: States: no symptoms reported Endocrine: States: no symptoms reported Past Medical History (General) - Patient Medical History Hx Seizures: No Hx Stroke: No Hx Dementia: No Hx Asthma: No Hx of COPD: No Hx Cardiac Disorders: No Hx Congestive Heart Failure: No Hx Pacemaker: No Hx Hypertension: Yes Hx Thyroid Disease: Yes Hx Diabetes: No Hx Gastroesophageal Reflux: No Hx Renal Disease: No Hx Cancer: No Hx of HIV: No Hx Hepatitis C: No Hx MRSA: No MRSA Source:: Wound - Vaccination History Hx Tetanus, Diphtheria Vaccination: No Hx Influenza Vaccination: No Hx Pneumococcal Vaccination: No Immunizations Up to Date: No - Social History Hx Tobacco Use: Yes Hx Chewing Tobacco Use: No Hx Alcohol Use: No Hx Substance Use: Yes - in the past Hx Substance Use Treatment: No Hx Depression: No Hx Physical Abuse: No Hx Emotional Abuse: No Hx Suspected Abuse: No - Female History Patient is a Female of Child Bearing Age (10 -59 yrs old): No Patient : No Family Medical History - Family History Mother Family History: No Known Name: Shari Dickey Collette Age (years): 66 Living Status: Still Living Hx Family Asthma: No Hx Family Congestive Heart Failure: No Hx Family Hypertension: No Hx Family Stroke: No Hx Cardiac Disease: No Hx Family Diabetes: No Hx Family Cancer: No Hx Family;Other: Depression,back pain and spondilosis Physical Exam - Physical Exam General Appearance: Alert, Comfortable, No apparent distress Eye Exam: bilateral normal Ears, Nose, Throat: hearing grossly normal, normal ENT inspection Neck: full range of motion, supple Respiratory: lungs clear, normal breath sounds, no respiratory distress, no accessory muscle use Cardiovascular/Chest: normal peripheral pulses, regular rate, rhythm, no edema Peripheral Pulses: radial,right: 2+, radial,left: 2+, dorsalis pedis,right: 2+, dorsalis pedis,left: 2+ Gastrointestinal/Abdominal: non tender, soft Rectal Exam: deferred Extremity: normal range of motion, no pedal edema, no calf tenderness, normal capillary refill, other - see history of present illness 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 the patient he is given a dose of tramadol and prednisone here. She'll be placed on prednisone for the next 3 days. [id number] anti-inflammatory such as Advil or Aleve can also help area topical heat can help. Stretching exercises can help. Activity is encouraged. ER warnings were given. Tramadol to be used as needed. Departure - Departure Clinical Impression: Trochanteric bursitis of right hip Disposition: Discharge to Home or Self Care Condition: Fair Departure Forms: ED Discharge - Pt. Copy, Patient Portal Self Enrollment Instructions: Bursitis Diet: regular diet Activity: increase activity as tolerated Referrals: Venancio Santana MD [Primary Care Provider] - 1-2 Weeks Prescriptions: Tramadol HCl 50 mg PO Q8HR PRN #10 tab PRN Reason: Moderate Pain predniSONE [Prednisone] 20 mg PO DAILY #3 tab Home Medications: Ambulatory Orders Cyclobenzaprine HCl 10 mg PO TID 03/19/18 Gabapentin [Neurontin] 300 mg PO TID 03/19/18 HYDROcodone 10MG/APAP 325MG [[place] 10325] 1 tab PO Q4H PRN 03/19/18 Levothyroxine Sodium [Synthroid] 200 mcg PO DAILY 03/19/18 Metoprolol Succinate [Toprol Xl] 25 mg PO DAILY 03/19/18 Pregabalin [Lyrica] 200 mg PO BID 03/19/18 Risperidone 1.5 tablet PO BID 03/19/18 Tramadol HCl 50 mg PO Q8HR PRN #20 tab 03/19/18 Trazodone HCl [Trazodone Hydrochloride] 200 mg PO BEDTIME 03/19/18 cloNAZepam [Klonopin] 0.5 mg PO BID 03/19/18 Baclofen 20 mg PO BID PRN #20 tab 07/02/18 Tramadol HCl 50 mg PO TID PRN #20 tab 07/02/18 Tramadol HCl 50 mg PO Q8HR PRN #10 tab 07/08/18 predniSONE [Prednisone] 20 mg PO DAILY #3 tab 07/08/18 Additional Instructions: the patient's a 43-year-old female that appears to have a trochanteric bursitis on the right. the patient he is given a dose of tramadol and prednisone here. She'll be placed on prednisone for the next 3 days. Over-the- counter anti-inflammatory such as Advil or Aleve can also help area topical heat can help. Stretching exercises can help. Activity is encouraged. ER warnings were given. Tramadol to be used as needed.
== END 2018-07-08 14:15 | disposition home or self-care (01) ==
LOC: ER 13:36
DX: M70.61 Trochanteric bursitis, right hip (principal); I10 Essential (primary) hypertension; E07.9 Disorder of thyroid, unspecified; Z87.891 Personal history of nicotine dependence; Z88.6 Allergy status to analgesic agent; Z79.899 Other long term (current) drug therapy

== ENCOUNTER 2018-08-01 09:25 | Emergency (ER) | payer OTHER ==
[2018-08-01 09:44] VITALS: TEMP 97.9; O2SAT 94
[2018-08-01] MEDS ORDERED: predniSONE 20 MG TAB PO ONE (09:57)
[2018-08-01] MEDS ORDERED: traMADol HCL 50 MG TAB PO ONE (09:57)
--- NOTE | 2018-08-01 10:01 | ED.PDOC ---
History of Present Illness - General Chief Complaint: Back Pain or Injury Stated Complaint: low back pain Time Seen by Provider: 08/01/18 09:35 Source: patient Exam Limitations: no limitations - History of Present Illness Initial Comments: The patient is a 43-year-old female presenting secondary to an acute flare of her chronic low back pain. She does have chronic sciatica issues. She is followed by her primary care doctor. She does take gabapentin but is not currently on any oral steroids for the flare and is not taking any form of other type pain medication. This is according to her. She had a scan of the CT of the abdomen and pelvis this morning but no report is back. No fevers. No real new symptoms and seems to be a flare of her old chronic issues. She does have tenderness to palpation at the level of L5-S1 and at the sacroiliac joints bilaterally. Again these are not entirely new symptoms. No new weakness. No urinary incontinence. No recent trauma. No fever. No skin changes. Timing/Duration: 1 week Severity: moderate Improving Factors: nothing Worsening Factors: nothing Associated Symptoms: denies symptoms Allergies/Adverse Reactions: Allergies Aspirin Allergy (Severe, Verified 07/08/18 13:50) Anaphylaxis Home Medications: Ambulatory Orders Cyclobenzaprine HCl 10 mg PO TID 03/19/18 Gabapentin [Neurontin] 300 mg PO TID 03/19/18 HYDROcodone 10MG/APAP 325MG [[place] ] 1 tab PO Q4H PRN 03/19/18 Levothyroxine Sodium [Synthroid] 200 mcg PO DAILY 03/19/18 Metoprolol Succinate [Toprol Xl] 25 mg PO DAILY 03/19/18 Pregabalin [Lyrica] 200 mg PO BID 03/19/18 Risperidone 1.5 tablet PO BID 03/19/18 Tramadol HCl 50 mg PO Q8HR PRN #20 tab 03/19/18 Trazodone HCl [Trazodone Hydrochloride] 200 mg PO BEDTIME 03/19/18 cloNAZepam [Klonopin] 0.5 mg PO BID 03/19/18 Baclofen 20 mg PO BID PRN #20 tab 07/02/18 Tramadol HCl 50 mg PO TID PRN #20 tab 07/02/18 Tramadol HCl 50 mg PO Q8HR PRN #10 tab 07/08/18 predniSONE [Prednisone] 20 mg PO DAILY #3 tab 07/08/18 Tramadol HCl 50 mg PO Q8HR PRN #20 tab 08/01/18 predniSONE [Prednisone] 20 mg PO DAILY #5 tab 08/01/18 Review of Systems - Review of Systems Constitutional: States: no symptoms reported EENTM: States: no symptoms reported Respiratory: States: no symptoms reported Cardiology: States: no symptoms reported Gastrointestinal/Abdominal: States: no symptoms reported Genitourinary: States: no symptoms reported Musculoskeletal: States: see HPI, back pain Skin: States: no symptoms reported Neurological: States: see HPI Endocrine: States: no symptoms reported All other Systems: No Change from Baseline Past Medical History (General) - Patient Medical History Hx Seizures: No Hx Stroke: No Hx Dementia: No Hx Asthma: No Hx of COPD: No Hx Cardiac Disorders: No Hx Congestive Heart Failure: No Hx Pacemaker: No Hx Hypertension: Yes Hx Thyroid Disease: Yes Hx Diabetes: No Hx Gastroesophageal Reflux: No Hx Renal Disease: No Hx Cancer: No Hx of HIV: No Hx Hepatitis C: No Hx MRSA: No MRSA Source:: Wound Surgical History: Hysterectomy - Vaccination History Hx Tetanus, Diphtheria Vaccination: No Hx Influenza Vaccination: No Hx Pneumococcal Vaccination: No - Social History Hx Tobacco Use: Yes Hx Chewing Tobacco Use: No Hx Alcohol Use: No Hx Substance Use: Yes - in the past Hx Substance Use Treatment: No Hx Depression: No Hx Physical Abuse: No Hx Emotional Abuse: No Hx Suspected Abuse: No - Female History Patient : No Family Medical History - Family History Mother Family History: No Known Name: Shari Dickey Serakehinde Age (years): 66 Living Status: Still Living Hx Family Asthma: No Hx Family Congestive Heart Failure: No Hx Family Hypertension: No Hx Family Stroke: No Hx Cardiac Disease: No Hx Family Diabetes: No Hx Family Cancer: No Hx Family;Other: Depression,back pain and spondilosis Physical Exam - Physical Exam General Appearance: Alert, Comfortable, No apparent distress Eye Exam: bilateral normal Ears, Nose, Throat: hearing grossly normal, normal ENT inspection, normal pharynx Neck: non-tender, supple Respiratory: lungs clear, normal breath sounds, no respiratory distress, no accessory muscle use Cardiovascular/Chest: normal peripheral pulses, regular rate, rhythm, no edema Peripheral Pulses: radial,right: 2+, radial,left: 2+ Gastrointestinal/Abdominal: non tender - moderate amount of palpable stool present. 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 This appears to be primarily inflammatory in nature. She is going to be placed on prednisone 20 mg daily for 5 days and will be written for a short course for tramadol. Topical heat may prove beneficial and she does need to do stretching exercises. This will help reduce muscle spasm. She needs to keep herself well hydrated. Continue her medications written by her primary care doctor otherwise. Keep follow-up with primary care doctor for CT results. ER warnings were given. Departure - Departure Clinical Impression: Acute exacerbation of chronic low back pain Disposition: Discharge to Home or Self Care Condition: Fair Departure Forms: ED Discharge - Pt. Copy, Patient Portal Self Enrollment Instructions: DI for Back Pain With Sciatica Diet: regular diet Activity: increase activity as tolerated Referrals: Venancio Santana MD [Primary Care Provider] - 1-2 Weeks Prescriptions: Tramadol HCl 50 mg PO Q8HR PRN #20 tab PRN Reason: Moderate Pain predniSONE [Prednisone] 20 mg PO DAILY #5 tab Home Medications: Ambulatory Orders Cyclobenzaprine HCl 10 mg PO TID 03/19/18 Gabapentin [Neurontin] 300 mg PO TID 03/19/18 HYDROcodone 10MG/APAP 325MG [[place] 10] 1 tab PO Q4H PRN 03/19/18 Levothyroxine Sodium [Synthroid] 200 mcg PO DAILY 03/19/18 Metoprolol Succinate [Toprol Xl] 25 mg PO DAILY 03/19/18 Pregabalin [Lyrica] 200 mg PO BID 03/19/18 Risperidone 1.5 tablet PO BID 03/19/18 Tramadol HCl 50 mg PO Q8HR PRN #20 tab 03/19/18 Trazodone HCl [Trazodone Hydrochloride] 200 mg PO BEDTIME 03/19/18 cloNAZepam [Klonopin] 0.5 mg PO BID 03/19/18 Baclofen 20 mg PO BID PRN #20 tab 07/02/18 Tramadol HCl 50 mg PO TID PRN #20 tab 07/02/18 Tramadol HCl 50 mg PO Q8HR PRN #10 tab 07/08/18 predniSONE [Prednisone] 20 mg PO DAILY #3 tab 07/08/18 Tramadol HCl 50 mg PO Q8HR PRN #20 tab 08/01/18 predniSONE [Prednisone] 20 mg PO DAILY #5 tab 08/01/18 Additional Instructions: the patient is a 43-year-old female presenting with acute on chronic low back pain that appears to be coming from the L5-S1 and the sacroiliac joints. This appears to be primarily inflammatory in nature. She is going to be placed on prednisone 20 mg daily for 5 days and will be written for a short course for tramadol. Topical heat may prove beneficial and she does need to do stretching exercises. This will help reduce muscle spasm. She needs to keep herself well hydrated. Continue her medications written by her primary care doctor otherwise. Keep follow-up with primary care doctor for CT results. weight loss and exercise are in general recommended for this patient to prevent further deterioration. ER warnings were given.
[2018-08-01 10:20] VITALS: BP 103/71
== END 2018-08-01 10:20 | disposition home or self-care (01) ==
LOC: ER 09:25
DX: M54.5 Low back pain (principal); G89.29 Other chronic pain; I10 Essential (primary) hypertension; E07.9 Disorder of thyroid, unspecified; Z87.891 Personal history of nicotine dependence; Z79.899 Other long term (current) drug therapy; Z88.6 Allergy status to analgesic agent

== ENCOUNTER → 2018-08-01 | Outpatient (CLI) | payer OTHER ==
--- NOTE | 2018-08-01 10:41 | CT ---
EXAM DESCRIPTION: CT ABDOMEN AND PELVIS WITH CONTRAST CLINICAL HISTORY: ABDOMINAL PAIN COMPARISON: Ultrasound right upper abdomen May 16, 2018 TECHNIQUE: CT of the abdomen and pelvis are performed during IV bolus administration of routine adult dose of nonionic iodinated contrast. Oral contrast media is administered as well. FINDINGS: In the lower chest, the lung bases are clear. Heart size is normal. CT abdomen Small right renal cyst measures 1.1 cm. Mild right renal scarring. Tiny upper pole left renal cyst measures 3 mm. Minimal scarring in the anterior left kidney. No calcified gallstones. Otherwise the liver, spleen, pancreas, gallbladder, adrenal glands, stomach and kidneys are unremarkable in appearance. No inflammation around the pancreas. No renal stones or hydronephrosis. No bowel dilatation to suggest obstruction. No free air or free fluid. CT pelvis Surgical changes in the right lower and left lower abdominal wall may be related to previous hernia surgery. Surgical clips above the bladder are also present. No inflammation around the cecum or terminal ileum or sigmoid colon. Bladder and distal ureters are negative for stones. Normal enhancement of pelvic vessels. No inguinal or lower pelvic adenopathy. Uterus and ovaries are not seen, evidently surgically absent. Appendix is not identified. Bone window images show deformities of the pelvis from old healed fractures. Surgical changes in the lower lumbar spine. TENS unit is present. Delayed images show normal contrast accumulation in the upper urinary collecting systems. Minimal contrast in the distal ureters and bladder. Coronal and sagittal reformatted images confirm the findings. IMPRESSION: No acute upper abdominal process. No acute process in the pelvis. This exam was performed according to our departmental dose-optimization program, which includes automated exposure control, adjustment of the mA and/or kV according to patient size and/or use of iterative reconstruction technique. Total DLP equals 2575.92 mGycm. Electronically signed by: Zackery Vega MD 08/01/2018 10:38 AM CLERICAL TRANSCRIBER
== END ==
LOC: CT 08:30
PROVIDERS: ATTEND Family Medicine
DX: R10.84 Generalized abdominal pain (principal)

== ENCOUNTER 2018-08-05 18:34 | Emergency (ER) | payer OTHER ==
[2018-08-05 18:48] VITALS: BP 118/90; TEMP 97.4; O2SAT 95
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
[2018-08-05] MEDS ORDERED: traMADol HCL 50 MG TAB PO ONE (19:21)
[2018-08-05] MEDS ORDERED: hydrOXYzine HCl 25 MG TAB PO ONE (19:21)
[2018-08-05] MEDS ORDERED: ORPHENADRINE CITRATE 30 MG/ML AMP IM ONE (19:21)
== END 2018-08-05 19:41 | disposition home or self-care (01) ==
LOC: ER 18:34
DX: M54.5 Low back pain (principal); G89.29 Other chronic pain; I10 Essential (primary) hypertension; E07.9 Disorder of thyroid, unspecified; Z79.899 Other long term (current) drug therapy; Z88.6 Allergy status to analgesic agent; Z87.891 Personal history of nicotine dependence

== ENCOUNTER 2018-08-06 11:42 | Emergency (ER) | payer OTHER ==
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
[2018-08-06] MEDS ORDERED: ORPHENADRINE CITRATE 30 MG/ML AMP IM ONE (12:25)
[2018-08-06 13:42] VITALS: BP 123/82; TEMP 97.9; O2SAT 96
== END 2018-08-06 12:50 | disposition home or self-care (01) ==
LOC: ER 11:42
DX: M54.5 Low back pain (principal); G89.29 Other chronic pain; I10 Essential (primary) hypertension; E07.9 Disorder of thyroid, unspecified; Z87.891 Personal history of nicotine dependence; Z79.899 Other long term (current) drug therapy; Z88.6 Allergy status to analgesic agent
CPT/HCPCS: 36415; 80048; 80307; 80320; 81001; 85025; J2360

== ENCOUNTER 2018-11-03 20:01 | Emergency (ER) | payer OTHER ==
[2018-11-03 20:20] VITALS: TEMP 99
[2018-11-03] MEDS ORDERED: ALPRAZolam 0.25 MG TAB PO ONE (20:25)
[2018-11-03] MEDS ORDERED: ALPRAZolam 0.5 MG TAB ONE (20:34)
[2018-11-04 01:00] VITALS: BP 123/78; O2SAT 95
--- NOTE | 2018-11-04 01:07 | ED.PDOC ---
History of Present Illness - General Chief Complaint: Behavioral / Psych Stated Complaint: Wans to harm self/others Time Seen by Provider: 11/03/18 20:06 Source: patient Exam Limitations: no limitations - History of Present Illness Initial Comments: the patient's a 43-year-old female presenting to the emergency room with the police due to calling them and telling them that she wanted to hurt herself and other people. The patient is obviously intoxicated with alcohol. She does have a history of depression and anxiety but denies taking anything currently. No particular plan. She denies other substance abuse. Timing/Duration: 1 week Severity: moderate Improving Factors: nothing Worsening Factors: nothing Associated Symptoms: denies symptoms Allergies/Adverse Reactions: Allergies Aspirin Allergy (Severe, Verified 07/08/18 13:50) Anaphylaxis Home Medications: Ambulatory Orders Gabapentin [Neurontin] 300 mg PO TID 03/19/18 HYDROcodone 10MG/APAP 325MG [[place] [address]] 1 tab PO Q4H PRN 03/19/18 Levothyroxine Sodium [Synthroid] 100 mcg PO DAILY 03/19/18 Metoprolol Succinate [Toprol Xl] 12.5 mg PO DAILY 03/19/18 Pregabalin [Lyrica] 200 mg PO BID 03/19/18 Trazodone HCl [Trazodone Hydrochloride] 200 mg PO BEDTIME 03/19/18 raNITIdine HCL [Zantac] 150 mg PO BID 08/01/18 Cyclobenzaprine HCl [Cyclobenzaprine Hydrochlo] 10 mg PO Q8HRS 11/03/18 Ondansetron Tab [Zofran Tab] 4 mg PO Q8HR PRN 11/03/18 Sertraline HCl [Zoloft] 100 mg PO DAILY 11/03/18 diphenhydrAMINE HCL [Benadryl] 25 mg PO Q6HRS 11/03/18 Review of Systems - Review of Systems Constitutional: States: no symptoms reported EENTM: States: no symptoms reported Respiratory: States: no symptoms reported Cardiology: States: no symptoms reported Gastrointestinal/Abdominal: States: no symptoms reported Genitourinary: States: no symptoms reported Musculoskeletal: States: no symptoms reported Skin: States: no symptoms reported Neurological: States: anxiety, depressed Endocrine: States: no symptoms reported All other Systems: No Change from Baseline Past Medical History (General) - Patient Medical History Hx Seizures: No Hx Stroke: No Hx Dementia: No Hx Asthma: No Hx of COPD: No Hx Cardiac Disorders: No Hx Congestive Heart Failure: No Hx Pacemaker: No Hx Hypertension: Yes Hx Thyroid Disease: Yes Hx Diabetes: No Hx Gastroesophageal Reflux: Yes Hx Renal Disease: No Hx Cancer: No Hx of HIV: No Hx Hepatitis C: No Hx MRSA: No MRSA Source:: Wound Surgical History: appendectomy, Hysterectomy - Vaccination History Hx Tetanus, Diphtheria Vaccination: No Hx Influenza Vaccination: No Hx Pneumococcal Vaccination: No - Social History Hx Tobacco Use: Yes Hx Chewing Tobacco Use: No Hx Alcohol Use: Yes Hx Substance Use: Yes - in the past Hx Substance Use Treatment: No Hx Depression: No Hx Physical Abuse: No Hx Emotional Abuse: No Hx Suspected Abuse: No - Female History Patient is a Female of Child Bearing Age (10 -59 yrs old): No Patient : No - hysterectomy - Triage Comment ED Triage Comment: States feels like harming herself Family Medical History - Family History Mother Family History: No Known Name: Shari Dickey Collette Age (years): 66 Living Status: Still Living Hx Family Asthma: No Hx Family Congestive Heart Failure: No Hx Family Hypertension: No Hx Family Stroke: No Hx Cardiac Disease: No Hx Family Diabetes: No Hx Family Cancer: No Hx Family;Other: Depression,back pain and spondilosis Physical Exam - Physical Exam General Appearance: Alert, Anxious Eye Exam: bilateral normal Ears, Nose, Throat: hearing grossly normal, normal ENT inspection Neck: full range of motion, supple Respiratory: lungs clear, normal breath sounds, no respiratory distress, no accessory muscle use Cardiovascular/Chest: normal peripheral pulses, regular rate, rhythm, no edema Peripheral Pulses: radial,right: 2+, radial,left: 2+ Gastrointestinal/Abdominal: non tender, soft Rectal Exam: deferred Back Exam: no CVA tenderness, no vertebral tenderness Extremity: non-tender, normal inspection, no pedal edema, normal capillary refill Neurologic: no motor/sensory deficits, alert, normal mood/affect, oriented x 3 Skin Exam: normal color - tattoos Comments: Vital Signs - 24 hr 11/03/18 11/03/18 11/03/18 20:16 21:11 22:00 Temperature 99.0 F Pulse Rate [ 120 H 112 H 110 H Left] Respiratory 18 18 16 Rate Blood Pressure 131/87 106/70 81/48 [Right Arm] O2 Sat by Pulse 95 96 94 L Oximetry 11/03/18 11/03/18 11/04/18 22:24 22:55 00:59 Temperature Pulse Rate [ 105 H 104 H 128 H Left] Respiratory 16 15 Rate Blood Pressure 98/60 102/64 123/78 [Right Arm] O2 Sat by Pulse 94 L 94 L 95 Oximetry Progress - Progress Progress: 11/04/18 01:06 the patient's a 43-year-old female with anxiety and depression issues contemplating self-harm and harm to other people. The patient is initially intoxicated with alcohol. Patient was monitored for more than 5 hours. MR as consult on the patient and she will do an outpatient intake. ER warnings were given. Laboratory work is reassuring otherwise. - Results/Orders Results/Orders: Laboratory Tests 11/03/18 11/03/18 11/03/18 20:25 20:25 20:25 WBC 9.1 RBC 4.92 Hgb 15.5 Hct 47.1 H MCV 95.7 MCH 31.6 H MCHC 33.0 RDW 13.5 Plt Count 470 H MPV 7.6 Absolute Neuts (auto) 4.40 Absolute Lymphs (auto) 3.60 H Absolute Monos (auto) 0.80 Absolute Eos (auto) 0.20 Absolute Basos (auto) 0.10 Neutrophils % 48.2 Neutrophils % (Manual) 47.0 Lymphocytes % 39.6 Lymphocytes % (Manual) 41.0 Monocytes % 9.1 H Monocytes % (Manual) 10.0 Eosinophils % 2.0 Basophils % 1.1 Eosinophils 2.0 Platelet Estimate Increased Normal RBC Morphology Normal rbc morph Sodium 141 Potassium 3.8 Chloride 106 Carbon Dioxide 21 Anion Gap 17.8 BUN 11 Creatinine 0.70 BUN/Creatinine Ratio 15.7 Random Glucose 110 H Serum Osmolality 281.3 Calcium 9.0 Total Bilirubin 0.3 AST 31 ALT 35 Alkaline Phosphatase 88 Serum Total Protein 7.5 Albumin 4.2 Globulin 3.3 Albumin/Globulin Ratio 1.3 TSH 4.73 Urine HCG, Qual Urine Opiates Screen Urine Barbiturates Ur Phencyclidine Scrn U Amphetamin/Meth Scrn U Benzodiazepines Scrn U Cocaine Metab Screen U Cannabinoids Screen Ethyl Alcohol 150.80 H* 11/03/18 11/03/18 20:25 20:25 WBC RBC Hgb Hct MCV MCH MCHC RDW Plt Count MPV Absolute Neuts (auto) Absolute Lymphs (auto) Absolute Monos (auto) Absolute Eos (auto) Absolute Basos (auto) Neutrophils % Neutrophils % (Manual) Lymphocytes % Lymphocytes % (Manual) Monocytes % Monocytes % (Manual) Eosinophils % Basophils % Eosinophils Platelet Estimate Normal RBC Morphology Sodium Potassium Chloride Carbon Dioxide Anion Gap BUN Creatinine BUN/Creatinine Ratio Random Glucose Serum Osmolality Calcium Total Bilirubin AST ALT Alkaline Phosphatase Serum Total Protein Albumin Globulin Albumin/Globulin Ratio TSH Urine HCG, Qual Negative Urine Opiates Screen Negative Urine Barbiturates Negative Ur Phencyclidine Scrn Negative U Amphetamin/Meth Scrn Negative U Benzodiazepines Scrn Negative U Cocaine Metab Screen Negative U Cannabinoids Screen Negative Ethyl Alcohol Departure - Departure Clinical Impression: Suicidal ideations, Depression Disposition: Discharge to Home or Self Care Condition: Fair Departure Forms: ED Discharge - Pt. Copy, Patient Portal Self Enrollment Instructions: DI for Suicidal Ideation-Adult Diet: regular diet Activity: increase activity as tolerated Referrals: Venancio Santana MD [Primary Care Provider] - 1-2 Weeks Home Medications: Ambulatory Orders Gabapentin [Neurontin] 300 mg PO TID 03/19/18 HYDROcodone 10MG/APAP 325MG [[place] 10/325] 1 tab PO Q4H PRN 03/19/18 Levothyroxine Sodium [Synthroid] 100 mcg PO DAILY 03/19/18 Metoprolol Succinate [Toprol Xl] 12.5 mg PO DAILY 03/19/18 Pregabalin [Lyrica] 200 mg PO BID 03/19/18 Trazodone HCl [Trazodone Hydrochloride] 200 mg PO BEDTIME 03/19/18 raNITIdine HCL [Zantac] 150 mg PO BID 08/01/18 Cyclobenzaprine HCl [Cyclobenzaprine Hydrochlo] 10 mg PO Q8HRS 11/03/18 Ondansetron Tab [Zofran Tab] 4 mg PO Q8HR PRN 11/03/18 Sertraline HCl [Zoloft] 100 mg PO DAILY 11/03/18 diphenhydrAMINE HCL [Benadryl] 25 mg PO Q6HRS 11/03/18 Additional Instructions: follow-up as per [facility] instructions. Reduce alcohol intake. ER warnings.
== END 2018-11-04 01:15 | disposition home or self-care (01) ==
LOC: ER 20:01
DX: R45.851 Suicidal ideations (principal); F32.9 Major depressive disorder, single episode, unspecified; F10.129 Alcohol abuse with intoxication, unspecified; F41.9 Anxiety disorder, unspecified; I10 Essential (primary) hypertension; E07.9 Disorder of thyroid, unspecified; K21.9 Gastro-esophageal reflux disease without esophagitis; Z87.891 Personal history of nicotine dependence; Z79.899 Other long term (current) drug therapy; Z88.6 Allergy status to analgesic agent

== ENCOUNTER → 2018-11-18 | Outpatient (CLI) | payer OTHER | LOC: GMAM 14:47 | PROVIDERS: ATTEND Family Medicine | DX: N64.52 Nipple discharge (principal) ==

== ENCOUNTER → 2018-11-22 | Outpatient (CLI) | payer OTHER | LOC: US 08:30 | PROVIDERS: ATTEND Family Medicine | DX: R11.0 Nausea (principal) ==

== ENCOUNTER → 2018-12-18 | Outpatient (CLI) | payer OTHER ==
--- NOTE | 2018-12-18 19:43 | MAM ---
EXAM DESCRIPTION: 3D Screening BILATERAL (accession [id number]), Breast,Left (accession [id number]): Ultrasound CLINICAL HISTORY: 43 yearsFemaleSCREEN . Occasional discharge from left nipple and occasional dark color. No personal or family history of breast cancer. Childbirth. Postmenopausal 10+ years. No HRT Lifetime risk of developing breast cancer (Tyrer-Cuzick model)(%): 7.1. COMPARISON: Baseline study at this facility. No prior reports. TECHNIQUE: Bilateral LM, CC, and MLO projection full-field images, digital mammographic tomosynthesis technique. Bilateral 2-D digital full-field MLO images. CAD not available . Transcutaneous scanning of the left breast utilizing ramírez-scale and Doppler modes. Scanning performed by the data science and iot manager and Dr. Johnston. FINDINGS: The breast parenchymal density pattern is: Almost entirely fatty. No skin thickening or nipple retraction circumscribed oval mass posterior third upper outer quadrant right breast with radiolucent eccentric region most likely a lymph node. Also right axillary lymph node. Oval-shaped circumscribed radiodense object upper outer quadrant middle third of left breast most likely a lymph node or fibroadenoma. Similar nodule seen in the posterior left breast abutting the chest wall at the 8:00 to 9:00 position. No retroareolar mass or calcifications. No suspicious microcalcifications bilaterally. Ultrasound: Scanning retroareolar left breast. Mostly fatty echotexture. No dilated ducts. No dominant solid mass or distinct cyst. Tiny 2 mm cyst in the left breast 2:00 position 14 cm from the nipple. Circumscribed hypoechoic mass with echogenic center also visualized measuring 7.4 x 7.1 x 3.7 mm. Central echogenic region is vascular. Wider than tall orientation with no posterior acoustic signature. Most likely a lymph node. IMPRESSION: Benign exam. BIRAD CATEGORY: 2 BENIGN FINDINGS. RECOMMENDATIONS: FOLLOW UP: Routine digital bilateral mammographic screening, one year interval from December 2018. Written communication explaining the IMPRESSION and follow-up, will be mailed to the patient and referring health care provider. According to the [employer], yearly mammograms are recommended starting at age 40 and continuing as long as a woman is in good health. Any breast change noted on a breast self-exam should be reported promptly to the patient's healthcare provider. Breast MRI is recommended for women with an approximately 20-25% or greater lifetime risk of breast cancer, including women with a strong family history of breast or ovarian cancer and women who have been treated for Hodgkin's disease. A negative mammographic report should not delay tissue diagnosis in patients with significant clinical history or physical findings. Extremely dense breast tissue limits the sensitivity of digital mammography. Electronically signed by: Phi Johnston MD 12/18/2018 7:41 PM CDT
--- NOTE | 2018-12-19 14:32 | MAM ---
EXAM DESCRIPTION: 3D Screening BILATERAL (accession [id number]), Breast,Left (accession [id number]): Ultrasound CLINICAL HISTORY: 43 yearsFemaleSCREEN . Occasional discharge from left nipple and occasional dark color. No personal or family history of breast cancer. Childbirth. Postmenopausal 10+ years. No HRT Lifetime risk of developing breast cancer (Tyrer-Cuzick model)(%): 7.1. COMPARISON: Baseline study at this facility. No prior reports. TECHNIQUE: Bilateral LM, CC, and MLO projection full-field images, digital mammographic tomosynthesis technique. Bilateral 2-D digital full-field MLO images. CAD not available . Transcutaneous scanning of the left breast utilizing ramírez-scale and Doppler modes. Scanning performed by the power grader operator and Dr. Johnston. FINDINGS: The breast parenchymal density pattern is: Almost entirely fatty. No skin thickening or nipple retraction circumscribed oval mass posterior third upper outer quadrant right breast with radiolucent eccentric region most likely a lymph node. Also right axillary lymph node. Oval-shaped circumscribed radiodense object upper outer quadrant middle third of left breast most likely a lymph node or fibroadenoma. Similar nodule seen in the posterior left breast abutting the chest wall at the 8:00 to 9:00 position. No retroareolar mass or calcifications. No suspicious microcalcifications bilaterally. Ultrasound: Scanning retroareolar left breast. Mostly fatty echotexture. No dilated ducts. No dominant solid mass or distinct cyst. Tiny 2 mm cyst in the left breast 2:00 position 14 cm from the nipple. Circumscribed hypoechoic mass with echogenic center also visualized measuring 7.4 x 7.1 x 3.7 mm. Central echogenic region is vascular. Wider than tall orientation with no posterior acoustic signature. Most likely a lymph node. IMPRESSION: Benign exam. BIRAD CATEGORY: 2 BENIGN FINDINGS. RECOMMENDATIONS: FOLLOW UP: Routine digital bilateral mammographic screening, one year interval from December 2018. Written communication explaining the IMPRESSION and follow-up, will be mailed to the patient and referring health care provider. According to the [employer], yearly mammograms are recommended starting at age 40 and continuing as long as a woman is in good health. Any breast change noted on a breast self-exam should be reported promptly to the patient's healthcare provider. Breast MRI is recommended for women with an approximately 20-25% or greater lifetime risk of breast cancer, including women with a strong family history of breast or ovarian cancer and women who have been treated for Hodgkin's disease. A negative mammographic report should not delay tissue diagnosis in patients with significant clinical history or physical findings. Extremely dense breast tissue limits the sensitivity of digital mammography. Electronically signed by: Phi Johnston MD 12/18/2018 7:41 PM CDT
== END ==
LOC: US 15:00
PROVIDERS: ATTEND Family Medicine
DX: N64.52 Nipple discharge (principal)
CPT/HCPCS: 76641; 77066; G0279

== ENCOUNTER 2018-12-27 09:41 | Emergency (ER) | payer OTHER ==
[2018-12-27] MEDS ORDERED: SODIUM CHLORIDE 0.9% 50ML 50 ML ONE (10:23)
[2018-12-27] MEDS ORDERED: PROMETHAZINE HCL INJ 25 MG/ML VIAL ONE (10:23)
[2018-12-27] MEDS: PROMETHAZINE HCL INJ 25 MG in SODIUM CHLORIDE 0.9% 50ML 50 ML IVPB ONE (10:26)
--- NOTE | 2018-12-27 10:28 | ED.PDOC ---
History of Present Illness - General Chief Complaint: GI Problem Stated Complaint: vomiting x1 week Time Seen by Provider: 12/27/18 09:59 Source: family - History of Present Illness Initial Comments: Patient presents with N/V for one week. She had two episodes of loose stool yesterday. She denies any abdominal pain. She says she was taking phenergan and that worked but has run out of it. Denies similarly sick contacts. Last meal was yesterday. No other complaints. Timing/Duration: 1 week Severity: moderate Improving Factors: nothing Worsening Factors: nothing Associated Symptoms: denies symptoms Allergies/Adverse Reactions: Allergies Aspirin Allergy (Severe, Verified 07/08/18 13:50) Anaphylaxis Home Medications: Ambulatory Orders Gabapentin [Neurontin] 300 mg PO TID 03/19/18 HYDROcodone 10MG/APAP 325MG [[place] ] 1 tab PO Q6H PRN 03/19/18 Levothyroxine Sodium [Synthroid] 100 mcg PO DAILY 03/19/18 Pregabalin [Lyrica] 200 mg PO BID 03/19/18 Trazodone HCl [Trazodone Hydrochloride] 200 mg PO BEDTIME 03/19/18 Ondansetron Tab [Zofran Tab] 4 mg PO Q8HR PRN 11/03/18 Promethazine Tab [Phenergan Tablet] 25 mg PO .Q4H PRN #10 tab 12/27/18 Promethazine Tab [Phenergan Tablet] 25 mg PO Q6H PRN 12/27/18 Review of Systems - Review of Systems Constitutional: States: no symptoms reported EENTM: States: no symptoms reported Respiratory: States: no symptoms reported Cardiology: States: no symptoms reported Gastrointestinal/Abdominal: States: see HPI Genitourinary: States: no symptoms reported Musculoskeletal: States: no symptoms reported Skin: States: no symptoms reported Neurological: States: no symptoms reported Endocrine: States: no symptoms reported Hematologic/Lymphatic: States: no symptoms reported Past Medical History (General) - Patient Medical History Hx Seizures: No Hx Stroke: No Hx Dementia: No Hx Asthma: No Hx of COPD: No Hx Cardiac Disorders: No Hx Congestive Heart Failure: No Hx Pacemaker: No Hx Hypertension: Yes Hx Thyroid Disease: Yes Hx Diabetes: No Hx Gastroesophageal Reflux: Yes Hx Renal Disease: No Hx Cancer: No Hx of HIV: No Hx Hepatitis C: No Hx MRSA: No MRSA Source:: Wound - Vaccination History Hx Tetanus, Diphtheria Vaccination: No Hx Influenza Vaccination: No Hx Pneumococcal Vaccination: No - Social History Hx Tobacco Use: Yes Hx Chewing Tobacco Use: No Hx Alcohol Use: Yes Hx Substance Use: Yes - in the past Hx Substance Use Treatment: No Hx Depression: No Hx Physical Abuse: No Hx Emotional Abuse: No Hx Suspected Abuse: No - Female History Patient : No - hysterectomy Family Medical History - Family History Mother Family History: No Known Name: Shari Murdock Age (years): 66 Living Status: Still Living Hx Family Asthma: No Hx Family Congestive Heart Failure: No Hx Family Hypertension: No Hx Family Stroke: No Hx Cardiac Disease: No Hx Family Diabetes: No Hx Family Cancer: No Hx Family;Other: Depression,back pain and spondilosis Physical Exam - Physical Exam General Appearance: Alert Eye Exam: bilateral normal Ears, Nose, Throat: normal ENT inspection Neck: non-tender, full range of motion, supple Respiratory: lungs clear, normal breath sounds Cardiovascular/Chest: normal peripheral pulses, regular rate, rhythm, no edema Gastrointestinal/Abdominal: normal bowel sounds, non tender, soft Back Exam: normal inspection, no CVA tenderness Extremity: normal range of motion Neurologic: no motor/sensory deficits, alert, normal mood/affect, oriented x 3 Skin Exam: normal color Lymphatic: no adenopathy Progress - Progress Progress: 12/27/18 11:59 Laboratory Tests 12/27/18 12/27/18 12/27/18 10:15 10:15 10:15 WBC 9.0 RBC 5.01 Hgb 15.7 Hct 46.2 MCV 92.2 MCH 31.4 H MCHC 34.0 RDW 13.8 Plt Count 455 H MPV 7.7 Absolute Neuts (auto) 6.30 Absolute Lymphs (auto) 1.80 Absolute Monos (auto) 0.60 Absolute Eos (auto) 0.10 Absolute Basos (auto) 0.10 Neutrophils % 70.0 Lymphocytes % 19.7 L Monocytes % 7.2 Eosinophils % 1.6 Basophils % 1.5 Sodium 138 Potassium 4.1 Chloride 104 Carbon Dioxide 23 Anion Gap 15.1 BUN 9 Creatinine 0.69 BUN/Creatinine Ratio 13.0 Random Glucose 98 Serum Osmolality 274.3 L Calcium 9.6 Total Bilirubin 0.2 AST 30 ALT 39 Alkaline Phosphatase 94 Serum Total Protein 7.7 Albumin 4.3 Globulin 3.4 Albumin/Globulin Ratio 1.3 Lipase 31 TSH 32.21 H Thyroxine (T4) 2.73 L Urine Color Yellow Urine Appearance Clear Urine pH 5.5 Ur Specific [place] >= 1.030 Urine Protein Negative Urine Glucose (UA) Negative Urine Ketones Negative Urine Blood Negative Urine Nitrite Negative Urine Bilirubin Negative Urine Urobilinogen 0.2 Ur Leukocyte Esterase Negative Urine RBC 0 Urine WBC 0-1 Ur Epithelial Cells 5-10 Amorphous Sediment Trace Urine Bacteria Rare Urine Opiates Screen Urine Barbiturates Ur Phencyclidine Scrn U Amphetamin/Meth Scrn U Benzodiazepines Scrn U Cocaine Metab Screen U Cannabinoids Screen 12/27/18 10:15 WBC RBC Hgb Hct MCV MCH MCHC RDW Plt Count MPV Absolute Neuts (auto) Absolute Lymphs (auto) Absolute Monos (auto) Absolute Eos (auto) Absolute Basos (auto) Neutrophils % Lymphocytes % Monocytes % Eosinophils % Basophils % Sodium Potassium Chloride Carbon Dioxide Anion Gap BUN Creatinine BUN/Creatinine Ratio Random Glucose Serum Osmolality Calcium Total Bilirubin AST ALT Alkaline Phosphatase Serum Total Protein Albumin Globulin Albumin/Globulin Ratio Lipase TSH Thyroxine (T4) Urine Color Urine Appearance Urine pH Ur Specific [place] Urine Protein Urine Glucose (UA) Urine Ketones Urine Blood Urine Nitrite Urine Bilirubin Urine Urobilinogen Ur Leukocyte Esterase Urine RBC Urine WBC Ur Epithelial Cells Amorphous Sediment Urine Bacteria Urine Opiates Screen Negative Urine Barbiturates Negative Ur Phencyclidine Scrn Negative U Amphetamin/Meth Scrn Positive H U Benzodiazepines Scrn Negative U Cocaine Metab Screen Negative U Cannabinoids Screen Negative TSH and T4 indicate hypothyroidism. The patient said she had not been taking her thyroid medication regularly. She was encouraged to do so. She was given phenergan 25 mg IV x one in the E.D. and one liter NS bolus. RX for Phenergan given and follow up with her primary care physician recommended. Care instructions given. E.R. warnings given. Questions were elicited and answered. Patient voiced understanding and agreement with the plan. Departure - Departure Clinical Impression: Hypothyroidism, Nausea & vomiting Disposition: Discharge to Home or Self Care Condition: Good Departure Forms: ED Discharge - Pt. Copy, Patient Portal Self Enrollment Diet: other - Increase oral fluids Activity: increase activity as tolerated Referrals: Venancio Santana MD [Primary Care Provider] - 1-2 Weeks Prescriptions: Promethazine Tab [Phenergan Tablet] 25 mg PO .Q4H PRN #10 tab PRN Reason: Nausea/Vomiting Home Medications: Ambulatory Orders Gabapentin [Neurontin] 300 mg PO TID 03/19/18 HYDROcodone 10MG/APAP 325MG [[place] ] 1 tab PO Q6H PRN 03/19/18 Levothyroxine Sodium [Synthroid] 100 mcg PO DAILY 03/19/18 Pregabalin [Lyrica] 200 mg PO BID 03/19/18 Trazodone HCl [Trazodone Hydrochloride] 200 mg PO BEDTIME 03/19/18 Ondansetron Tab [Zofran Tab] 4 mg PO Q8HR PRN 11/03/18 Promethazine Tab [Phenergan Tablet] 25 mg PO .Q4H PRN #10 tab 12/27/18 Promethazine Tab [Phenergan Tablet] 25 mg PO Q6H PRN 12/27/18 Additional Instructions: Take your thyroid medication as prescribed. See your regular doctor next week to have your thyroid hormones checked again. Return to the E.R. for worsening symptoms.
[2018-12-27 10:32] VITALS: O2SAT 94
[2018-12-27] MEDS: SODIUM CHLORIDE 0.9% 1000ML 1,000 ML IVS ONE (11:15)
[2018-12-27 11:46] VITALS: TEMP 97.9
[2018-12-27 12:18] VITALS: BP 114/68
== END 2018-12-27 12:18 | disposition home or self-care (01) ==
LOC: ER 09:41
DX: R11.2 Nausea with vomiting, unspecified (principal); E03.9 Hypothyroidism, unspecified; I10 Essential (primary) hypertension; K21.9 Gastro-esophageal reflux disease without esophagitis; Z87.891 Personal history of nicotine dependence; Z79.899 Other long term (current) drug therapy; Z88.6 Allergy status to analgesic agent
CPT/HCPCS: 36415; 80053; 80307; 81001; 83690; 84436; 84443; 85025; A4216; J2550; J7030

== ENCOUNTER → 2019-01-16 | Outpatient (CLI) | payer OTHER ==
--- NOTE | 2019-01-16 11:47 | RAD ---
EXAM DESCRIPTION: MYELOGRAM, LUMBAR SPINE: RF. CLINICAL HISTORY: LUMBAR RADICULOPATHY COMPARISON: Post lumbar myelogram CT scan following this procedure. TECHNIQUE: The procedure was explained to the patient with risks and benefits. The patient gave verbal and written consent. Timeout was performed to confirm patient ID and type of procedure. Patient prone on standard fluoroscopic table. Bioinformaticist image recorded neutral position. L2-L3 interspinous fossa localized by fluoroscopy. Overlying skin was marked and prepped with sterile solution and sterile draping applied. Subcutaneous and deep 1% xylocaine injection local. 5 inch 22-gauge spinal needle introduced into the interspinous fossa under fluoroscopic guidance. Clear CSF fluid appeared in the hub of the needle, confirming placement in the subarachnoid space. 13 mL of Isovue-300 intrathecal contrast was injected under fluoroscopic visualization. Observed contrast material in the lumbar subarachnoid space. AP and bilateral anterior oblique images obtained with patient 10 degrees tilt, head elevated. Total images 1 overhead image and 4 fluoroscopic images. Total fluoroscopy time was 1.5 minutes. Dose: 101.37 mGy. DAP 19.40 Gy-cm2. FINDINGS: The safety equipment testing specialist film shows transitional L5 segment with sacralization more on the right. Electrode C4 thoracic dorsal column stimulator electrodes are visible. Narrowing of L5-S1 disc space. Subarachnoid space of the lumbar spine is well demonstrated with contrast. No mass effect. Normal caliber. No extravasation. IMPRESSION: Successful fluoroscopic guided lumbar puncture and lumbar myelogram. No immediate complications. Patient observation for one hour after the CT scan. 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 Home instructions were given verbally and understood. Electronically signed by: Phi Johnston MD 01/16/2019 11:46 AM CDT
--- NOTE | 2019-01-16 15:09 | CT ---
EXAM DESCRIPTION: Lumbar Spine. Post myelogram Computed Tomography. CLINICAL HISTORY: LUMBAR RADICULOPATHY COMPARISON: Lumbar myelogram on this visit. Abdominal pelvis CT scan with contrast 08/01/2018. Radiographs of the lumbar spine 02/28/2018. TECHNIQUE: Spiral, axial 2.5 x 2.5 mm scans through the lumbar spine after lumbar myelogram using 13 cc of intrathecal Isovue 300 nonionic contrast. Coronal and sagittal 2.0 mm Reconstructions.. No complications. No adverse contrast reactions. Total Exam DLP: 602.29 mGy-cm. This exam was performed according to our departmental CT dose-optimization program which includes automated exposure control, adjustment of the mA and/or kV according to patient size and/or use of iterative reconstruction technique; to reduce radiation dose to as low as reasonably achievable (ALARA). FINDINGS: L5 vertebra is transitional and partially lumbarized. Hypertrophic spurs projecting from the superior sacralized right fifth transverse process. Rudimentary joint between the right S1 sacral ala and the transverse process. Minimal sclerosis on the iliac facet of the superior right SI joint. Posterior hypertrophic bone formation overlying the mid and inferior right SI joint. Moderate narrowing of the right L5-S1 foramen. Trace retrolisthesis L5-S1. Right L5-S1 facet joint is sclerotic and fused. Minimal narrowing of the L5-S1 disc space and trace posterior bulge abutting the contrast filled ventral thecal sac. Also noted is a right paracentral 6 mm disc protrusion which is effacing the right S1 nerve root sheath with "cut off" of the contrast in the right subarticular recess. The right subarticular recess also shows bony effacement. Minimal arthrosis in the left L5-S1 facet joint. Normal caliber of the left L5-S1 foramen. The thecal sac is well distended down to the S1-S2 level with contrast except for the effacement by the disc and bone as described. Contrast is also filling the bilateral S2 nerve root sheaths. Rudimentary disc space at S1-S2. L4-L5: Disc space preserved. Minimal posterior bulge impressing on the ventral thecal sac. Contrast filling the bilateral descending L5 nerve root sheaths. Mild narrowing of the right foramen normal caliber of the left. Minimal arthrosis and hypertrophy of the right L4-L5 facet more than left and bilateral ligament hypertrophy. AP canal diameter 8 mm. With bilateral pedicle shortening. Subarticular recesses are patent. L3-L4: Disc space is maintained. No bulging. No extrinsic mass effect on the thecal sac. Minimal hypertrophic right facet arthrosis, and thickening of the bilateral posterior ligaments. Bilaterally shortened pedicles. AP canal diameter 11 mm. Bilateral foramina are patent. L2-L3: Disc space maintained with no posterior bulging. No extrinsic mass effect on the thecal sac. AP canal diameter 13 mm. Minimal ligament thickening. Bilaterally shortened pedicles. Bilateral foramina are patent. L1-2: Disc space maintained with no posterior bulging. No significant mass effect on the thecal sac. AP canal diameter 13 mm. Bilaterally shortened pedicles. Bilateral foramina are patent. T12-L1: Disc space maintained with no posterior bulging. No significant mass effect on the thecal sac. Canal is patent. Conus terminates just below the disc space. Bilateral foramina are patent. Trace thoracolumbar levoscoliosis. No compression type vertebral body fractures at any level. No significant spondylolisthesis. IMPRESSION: 1. 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 Hypertrophic spurs on the right transverse process. Pseudojoint or rudimentary joint between the right S1 sacral ala and the right L5 transverse process. Deformity may be a result of prior trauma. 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 Hypertrophic changes possibly from trauma in the inferior margin of the joint. Fusion of the right L5-S1 joint which may be secondary to arthrosis, trauma, or congenital. 2. Moderate narrowing of the right L5-S1 foramen. Right posterior disc protrusion impressing on the thecal sac with cutoff of contrast in the right S1 nerve sheath at the right subarticular recess. Bony effacement also of the recess. Mild arthrosis left L5-S1 facet. Left foramen patent. Contrast in the left S1 nerve sheath and no effacement of the left subarticular recess. 3. Bilateral pedicle shortening at multiple levels. Mild to moderate canal stenosis multifactorial at L4-5, but disc is not bulging. Mild narrowing of the right foramen. Electronically signed by: Phi Johnston MD 01/16/2019 3:07 PM CDT
== END ==
LOC: RAD 08:00
PROVIDERS: ATTEND Anesthesiology
DX: M51.16 Intervertebral disc disorders with radiculopathy, lumbar region (principal); M48.062 Spinal stenosis, lumbar region with neurogenic claudication; M43.8X8 Other specified deforming dorsopathies, sacral and sacrococcygeal region; G89.4 Chronic pain syndrome; Z79.891 Long term (current) use of opiate analgesic

== ENCOUNTER → 2019-01-28 | Outpatient (CLI) | payer OTHER | LOC: GMAM 15:13 | PROVIDERS: ATTEND Family Medicine | DX: R11.0 Nausea (principal) ==

== ENCOUNTER → 2019-02-11 | Outpatient (CLI) | payer OTHER | LOC: GMAM 14:55 | PROVIDERS: ATTEND Family Medicine | DX: M25.50 Pain in unspecified joint (principal) ==

== ENCOUNTER 2019-02-26 12:04 | Emergency (ER) | payer OTHER ==
--- NOTE | 2019-02-26 12:31 | ED.PDOC ---
History of Present Illness - General Chief Complaint: Back Pain or Injury Stated Complaint: back pain Time Seen by Provider: 02/26/19 12:12 Source: patient Exam Limitations: no limitations - History of Present Illness Initial Comments: the patient is a 43-year-old female presenting to the emergency room secondary to low back pain. She does have chronic low back pain and this pain is no different than normal except it is a little stronger. She is already taking a narcotic, a muscle relaxer and Neurontin. The patient recently had a CT myelogram of her low back showing the multiple chronic changes. Pain got worse a few days ago when she bent over to pick something up. No new neurological symptoms. She does have chronic sciatica. Timing/Duration: other Severity: moderate Improving Factors: nothing Worsening Factors: movement Associated Symptoms: denies symptoms Allergies/Adverse Reactions: Allergies Aspirin Allergy (Severe, Verified 07/08/18 13:50) Anaphylaxis Home Medications: Ambulatory Orders Gabapentin [Neurontin] 400 mg PO TID 03/19/18 HYDROcodone 10MG/APAP 325MG [[place] 10/325] 1 tab PO Q6H PRN 03/19/18 Levothyroxine Sodium [Synthroid] 200 mcg PO DAILY 03/19/18 Trazodone HCl [Trazodone Hydrochloride] 100 mg PO BEDTIME 03/19/18 Promethazine Tab [Phenergan Tablet] 25 mg PO Q6H PRN 12/27/18 Cyclobenzaprine HCl [Flexeril] 10 mg PO TID 02/26/19 Tramadol HCl 50 mg PO Q8HR PRN #20 tab 02/26/19 Review of Systems - Review of Systems Constitutional: States: no symptoms reported EENTM: States: no symptoms reported Respiratory: States: no symptoms reported Cardiology: States: no symptoms reported Gastrointestinal/Abdominal: States: no symptoms reported Genitourinary: States: no symptoms reported Musculoskeletal: States: see HPI Skin: States: no symptoms reported Neurological: States: see HPI Endocrine: States: no symptoms reported All other Systems: No Change from Baseline Past Medical History (General) - Patient Medical History Hx Seizures: No Hx Stroke: No Hx Dementia: No Hx Asthma: No Hx of COPD: No Hx Cardiac Disorders: No Hx Congestive Heart Failure: No Hx Pacemaker: No Hx Hypertension: Yes Hx Thyroid Disease: Yes Hx Diabetes: No Hx Gastroesophageal Reflux: Yes Hx Renal Disease: No Hx Cancer: No Hx of HIV: No Hx Hepatitis C: No Hx MRSA: No MRSA Source:: Wound Surgical History: Hysterectomy - Vaccination History Hx Tetanus, Diphtheria Vaccination: No Hx Influenza Vaccination: No Hx Pneumococcal Vaccination: No - Social History Hx Tobacco Use: Yes Hx Chewing Tobacco Use: No Hx Alcohol Use: Yes Hx Substance Use: Yes - in the past Hx Substance Use Treatment: No Hx Depression: No Hx Physical Abuse: No Hx Emotional Abuse: No Hx Suspected Abuse: No - Female History Patient is a Female of Child Bearing Age (10 -59 yrs old): No Patient : No - hysterectomy Family Medical History - Family History Mother Family History: No Known Name: Shari Murdock Age (years): 66 Living Status: Still Living Hx Family Asthma: No Hx Family Congestive Heart Failure: No Hx Family Hypertension: No Hx Family Stroke: No Hx Cardiac Disease: No Hx Family Diabetes: No Hx Family Cancer: No Hx Family;Other: Depression,back pain and spondilosis Physical Exam - Physical Exam General Appearance: Alert, No apparent distress Eye Exam: bilateral normal Ears, Nose, Throat: hearing grossly normal, normal ENT inspection Neck: supple Respiratory: lungs clear, normal breath sounds, no respiratory distress, no accessory muscle use Cardiovascular/Chest: normal peripheral pulses, no edema, tachycardia Peripheral Pulses: radial,right: 2+, radial,left: 2+, dorsalis pedis,right: 2+, dorsalis pedis,left: 2+ Gastrointestinal/Abdominal: non tender - obese, soft Rectal Exam: deferred Back Exam: other - the patient has diffuse low back discomfort palpation. She has some paraspinal muscle spasm. 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 The patient is being given a dose of prednisone today to help reduce inflammation and she is also receiving a dose of Toradol. We will not continue these medications longer than today as she is scheduled for surgery on Sunday. She will be written for some tramadol for as needed use for the next few days additionally. She does need to try and do stretching exercises and use topical heat. ER warnings were given. keep follow-up. ben [email or web address] 127 Departure - Departure Clinical Impression: Acute exacerbation of chronic low back pain Disposition: Discharge to Home or Self Care Condition: Fair Departure Forms: ED Discharge - Pt. Copy, Patient Portal Self Enrollment Instructions: DI for Back Pain With Sciatica Diet: regular diet Activity: increase activity as tolerated Referrals: Venancio Zambrano MD [Primary Care Provider] - 1-2 Weeks Prescriptions: Tramadol HCl 50 mg PO Q8HR PRN #20 tab PRN Reason: Moderate Pain Home Medications: Ambulatory Orders Gabapentin [Neurontin] 400 mg PO TID 03/19/18 HYDROcodone 10MG/APAP 325MG [[place] 10/325] 1 tab PO Q6H PRN 03/19/18 Levothyroxine Sodium [Synthroid] 200 mcg PO DAILY 03/19/18 Trazodone HCl [Trazodone Hydrochloride] 100 mg PO BEDTIME 03/19/18 Promethazine Tab [Phenergan Tablet] 25 mg PO Q6H PRN 12/27/18 Cyclobenzaprine HCl [Flexeril] 10 mg PO TID 02/26/19 Tramadol HCl 50 mg PO Q8HR PRN #20 tab 02/26/19 Additional Instructions: the patient is a 43-year-old female presenting to emergency room secondary to acute on chronic low back pain with sciatica. The patient is being given a dose of prednisone today to help reduce inflammation and she is also r eceiving a dose of Toradol. We will not continue these medications longer than today as she is scheduled for surgery on Sunday. She will be written for some tramadol for as needed use for the next few days additionally. She does need to try and do stretching exercises and use topical heat. ER warnings were given. keep follow-up.
[2019-02-26] MEDS: traMADol HCL 50 MG TAB PO ONE (12:35)
[2019-02-26] MEDS: predniSONE 20 MG TAB PO ONE (12:36)
[2019-02-26] MEDS: KETOROLAC TROMETHAMINE INJ 30 MG/ML VIAL IM ONE (12:37)
[2019-02-26 12:49] VITALS: BP 112/91; TEMP 98.2; O2SAT 98
== END 2019-02-26 12:49 | disposition home or self-care (01) ==
LOC: ER 12:04
DX: M54.5 Low back pain (principal); G89.29 Other chronic pain; I10 Essential (primary) hypertension; E07.9 Disorder of thyroid, unspecified; K21.9 Gastro-esophageal reflux disease without esophagitis; Z87.891 Personal history of nicotine dependence; Z79.899 Other long term (current) drug therapy; Z88.6 Allergy status to analgesic agent
CPT/HCPCS: J1885; J7512

== ENCOUNTER 2019-03-23 17:48 | Emergency (ER) | payer OTHER ==
[2019-03-23 18:22] VITALS: BP 115/84; TEMP 98.8; O2SAT 97
--- NOTE | 2019-03-23 18:32 | ED.PDOC ---
History of Present Illness - General Chief Complaint: Skin/Abrasion/Tear Stated Complaint: post-op wound infection Time Seen by Provider: 03/23/19 18:28 Source: patient Exam Limitations: no limitations - History of Present Illness Initial Comments: the patient is a 43-year-old female presenting to the emergency room secondary to infection at her rightbreast reduction site. She had the breast reduction done about 3 weeks ago. She was started on antibiotics about 10-12 days ago. She was started on Keflex but the infection was getting worse and she was switched over to ciprofloxacin about 5 days ago. The infection is still continued. She saw her plastic surgeon about 5 days ago when he switched her. She has been in contact with him. No fevers. There is no obvious abscess. There is no drainage. There is erythema along the edges of the incisions and the incision at the base has started to dehisce. No evidence of sepsis.the patient is also out of her hydrocodone for her chronic pain. Timing/Duration: unsure Severity: moderate Improving Factors: nothing Worsening Factors: nothing Associated Symptoms: chest pain - breast pain Allergies/Adverse Reactions: Allergies Aspirin Allergy (Severe, Verified 07/08/18 13:50) Anaphylaxis Home Medications: Ambulatory Orders Gabapentin [Neurontin] 400 mg PO TID 03/19/18 HYDROcodone 10MG/APAP 325MG [[place] [id number]] 1 tab PO Q6H PRN 03/19/18 Levothyroxine Sodium [Synthroid] 200 mcg PO DAILY 03/19/18 Trazodone HCl [Trazodone Hydrochloride] 100 mg PO BEDTIME 03/19/18 Promethazine Tab [Phenergan Tablet] 25 mg PO Q6H PRN 12/27/18 Cyclobenzaprine HCl [Flexeril] 10 mg PO TID 02/26/19 Tramadol HCl 50 mg PO Q8HR PRN #20 tab 02/26/19 Sulfa/Trimeth 800/160 (Ds) Tab [Bactrim DS Tab] 1 ea PO BID #20 tab 03/23/19 Tramadol HCl 50 mg PO Q8HR PRN #10 tab 03/23/19 Review of Systems - Review of Systems Constitutional: States: malaise EENTM: States: no symptoms reported Respiratory: States: no symptoms reported Cardiology: States: no symptoms reported Gastrointestinal/Abdominal: States: no symptoms reported Genitourinary: States: no symptoms reported Musculoskeletal: States: no symptoms reported Skin: States: see HPI Neurological: States: no symptoms reported Endocrine: States: no symptoms reported All other Systems: No Change from Baseline Past Medical History (General) - Patient Medical History Hx Seizures: No Hx Stroke: No Hx Dementia: No Hx Asthma: No Hx of COPD: No Hx Cardiac Disorders: No Hx Congestive Heart Failure: No Hx Pacemaker: No Hx Hypertension: Yes Hx Thyroid Disease: Yes Hx Diabetes: No Hx Gastroesophageal Reflux: Yes Hx Renal Disease: No Hx Cancer: No Hx of HIV: No Hx Hepatitis C: No Hx MRSA: No MRSA Source:: Wound Surgical History: Hysterectomy - Vaccination History Hx Tetanus, Diphtheria Vaccination: No Hx Influenza Vaccination: Yes Hx Pneumococcal Vaccination: No - Social History Hx Tobacco Use: Yes Hx Chewing Tobacco Use: No Hx Alcohol Use: Yes Hx Substance Use: Yes - in the past Hx Substance Use Treatment: No Hx Depression: No Hx Physical Abuse: No Hx Emotional Abuse: No Hx Suspected Abuse: No - Female History Patient : No - hysterectomy Family Medical History - Family History Mother Family History: No Known Name: Shari Murdock Age (years): 66 Living Status: Still Living Hx Family Asthma: No Hx Family Congestive Heart Failure: No Hx Family Hypertension: No Hx Family Stroke: No Hx Cardiac Disease: No Hx Family Diabetes: No Hx Family Cancer: No Hx Family;Other: Depression,back pain and spondilosis Physical Exam - Physical Exam General Appearance: Alert, Comfortable, No apparent distress Eye Exam: bilateral normal Ears, Nose, Throat: hearing grossly normal, normal pharynx Neck: non-tender, supple Respiratory: lungs clear, normal breath sounds, no respiratory distress, no accessory muscle use Cardiovascular/Chest: normal peripheral pulses, regular rate, rhythm, no edema Peripheral Pulses: radial,right: 2+, radial,left: 2+ Gastrointestinal/Abdominal: non tender, soft Rectal Exam: deferred Extremity: normal range of motion, non-tender, normal inspection, no pedal edema, normal capillary refill 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 No obvious abscess. Comments: Vital Signs - 24 hr 03/23/19 18:10 Temperature 98.8 F Pulse Rate [ 116 H Left Brachial] Respiratory 20 Rate Blood Pressure 115/84 [Left Arm] O2 Sat by Pulse 97 Oximetry Progress - Progress Progress: 03/23/19 18:33 the patient is a 43-year-old female with a cellulitis in her right breast reduction site. She has already been on ciprofloxacin. There is no drainage to culture at this point. I'm going to add Bactrim to her medication list. She needs to take this twice daily with food. This should have better coverage for staph. She does need to photo document the area daily. She needs to keep follow-up with her plastic surgeon this coming week. ER warnings were g iven for any significant worsening. She was given 1 dose of hydrocodone here for pain control and will be written for tramadol for a few days for pain control as she is out of her hydrocodone. Motrin can also be used for discomfort. ER warnings were given. ben zambrano [id number] Departure - Departure Clinical Impression: Postoperative cellulitis of surgical wound Disposition: Discharge to Home or Self Care Condition: Fair Departure Forms: ED Discharge - Pt. Copy, Patient Portal Self Enrollment Instructions: DI for Wound Infection Diet: diabetic diet Activity: increase activity as tolerated Referrals: Venancio Zambrano MD [Primary Care Provider] - 1-2 Weeks Prescriptions: Tramadol HCl 50 mg PO Q8HR PRN #10 tab PRN Reason: Moderate Pain Sulfa/Trimeth 800/160 (Ds) Tab [Bactrim DS Tab] 1 ea PO BID #20 tab Home Medications: Ambulatory Orders Gabapentin [Neurontin] 400 mg PO TID 03/19/18 HYDROcodone 10MG/APAP 325MG [[place] 10/325] 1 tab PO Q6H PRN 03/19/18 Levothyroxine Sodium [Synthroid] 200 mcg PO DAILY 03/19/18 Trazodone HCl [Trazodone Hydrochloride] 100 mg PO BEDTIME 03/19/18 Promethazine Tab [Phenergan Tablet] 25 mg PO Q6H PRN 12/27/18 Cyclobenzaprine HCl [Flexeril] 10 mg PO TID 02/26/19 Tramadol HCl 50 mg PO Q8HR PRN #20 tab 02/26/19 Sulfa/Trimeth 800/160 (Ds) Tab [Bactrim DS Tab] 1 ea PO BID #20 tab 03/23/19 Tramadol HCl 50 mg PO Q8HR PRN #10 tab 03/23/19 Additional Instructions: the patient is a 43-year-old female with a cellulitis in her right breast reduction site. She has already been on ciprofloxacin. There is no drainage to culture at this point. I'm going to add Bactrim to her medication list. She needs to take this twice daily with food. This should have better coverage for staph. She does need to photo document the area daily. She needs to keep follow-up with her plastic surgeon this coming week. ER warnings were given for any significant worsening. She was given 1 dose of hydrocodone here for pain control and will be written for tramadol for a few days for pain control as she is out of her hydrocodone. Motrin can also be used for discomfort. ER warnings were given.
[2019-03-23] MEDS: HYDROcodone 10MG/APAP 325MG 1 EA TAB PO ONE (18:44)
[2019-03-23] MEDS: SULFA/TRIMETH 800/160 (DS) TAB 1 EA TAB PO ONE (18:44)
== END 2019-03-23 18:45 | disposition home or self-care (01) ==
LOC: ER 17:48
DX: T81.49XA Infection following a procedure, other surgical site, initial encounter (principal); N61.0 Mastitis without abscess; I10 Essential (primary) hypertension; E07.9 Disorder of thyroid, unspecified; K21.9 Gastro-esophageal reflux disease without esophagitis; Z87.891 Personal history of nicotine dependence; Z79.899 Other long term (current) drug therapy; Z88.6 Allergy status to analgesic agent

== ENCOUNTER 2019-04-05 11:00 | Emergency (ER) | payer OTHER ==
[2019-04-05 11:16] VITALS: O2SAT 95
[2019-04-05] MEDS ORDERED: KETOROLAC TROMETHAMINE INJ 30 MG/ML VIAL IV ONE (11:23)
[2019-04-05] MEDS ORDERED: SODIUM CHLORIDE 0.9% (FLUSH) 10 ML SYG IV PRN (11:23)
[2019-04-05] MEDS ORDERED: MORPHINE SULFATE INJ 10 MG/ML VIAL IV ONE (11:25)
--- NOTE | 2019-04-05 11:28 | ED.PDOC ---
History of Present Illness - General Chief Complaint: Skin/Abrasion/Tear Stated Complaint: post-op wound infection Time Seen by Provider: 04/05/19 11:04 Source: patient - History of Present Illness Initial Comments: 44 yo female s/p BL breast reduction 03/03 who presents with cc of right breast pain. Pt has been dealing with complications of wound dehiscence and postop cellulitis to the right breast for several weeks now. Initially on Keflex, then Cipro, then seen here on 03/23 and placed on Bactrim, then to Levaquin by her surgeon for the past 10 days with 2 more days remaining. Has f/u with her surgeon in [place] in 3 days. Reports pain ever since the surgery but worsened again in past couple days, constant, sharp, currently 10/10 severity, located throughout breast. Reports worsening firmness under the incision wound for several days and continued redness and intermittent small yellow drainage but redness and drainage actually improving compared to prior. Denies any fevers, chills, chest pain, dyspnea, other systemic sx's. Taking hydrocodone 10 q6h for several days along with ibuprofen/Tylenol PRN with little relief. States she took her last hydrocodone at 4 am today. Allergies/Adverse Reactions: Allergies Aspirin Allergy (Severe, Verified 07/08/18 13:50) Anaphylaxis Home Medications: Ambulatory Orders Gabapentin [Neurontin] 400 mg PO TID 03/19/18 HYDROcodone 10MG/APAP 325MG [[place] 10/325] 1 tab PO Q6H PRN 03/19/18 Levothyroxine Sodium [Synthroid] 200 mcg PO DAILY 03/19/18 Trazodone HCl [Trazodone Hydrochloride] 100 mg PO BEDTIME 03/19/18 Promethazine Tab [Phenergan Tablet] 25 mg PO Q6H PRN 12/27/18 Cyclobenzaprine HCl [Flexeril] 10 mg PO TID 02/26/19 Tramadol HCl 50 mg PO Q8HR PRN #20 tab 02/26/19 Sulfa/Trimeth 800/160 (Ds) Tab [Bactrim DS Tab] 1 ea PO BID #20 tab 03/23/19 Tramadol HCl 50 mg PO Q8HR PRN #10 tab 03/23/19 Acetaminophen W/ Codeine [Tylenol/Codeine #4 300-60 mg] 1 ea PO Q6H PRN 10 Days #15 tab 04/05/19 Review of Systems - Review of Systems Review of Systems: 04/05/19 11:32 as per HPI All other Systems: Reviewed and Negative Past Medical History (General) - Patient Medical History Hx Seizures: No Hx Stroke: No Hx Dementia: No Hx Asthma: No Hx of COPD: No Hx Cardiac Disorders: No Hx Congestive Heart Failure: No Hx Pacemaker: No Hx Hypertension: Yes Hx Thyroid Disease: Yes Hx Diabetes: No Hx Gastroesophageal Reflux: Yes Hx Renal Disease: No Hx Cancer: No Hx of HIV: No Hx Hepatitis C: No Hx MRSA: No MRSA Source:: Wound Surgical History: Hysterectomy - Vaccination History Hx Tetanus, Diphtheria Vaccination: No Hx Influenza Vaccination: No Hx Pneumococcal Vaccination: No - Social History Hx Tobacco Use: No Hx Chewing Tobacco Use: No Hx Alcohol Use: Yes Hx Substance Use: Yes - in the past Hx Substance Use Treatment: No Hx Depression: No Hx Physical Abuse: No Hx Emotional Abuse: No Hx Suspected Abuse: No - Female History Patient : No - hysterectomy Family Medical History - Family History Mother Family History: No Known Name: Shari Murdock Age (years): 66 Living Status: Still Living Hx Family Asthma: No Hx Family Congestive Heart Failure: No Hx Family Hypertension: No Hx Family Stroke: No Hx Cardiac Disease: No Hx Family Diabetes: No Hx Family Cancer: No Hx Family;Other: Depression,back pain and spondilosis Physical Exam - Physical Exam General Appearance: Alert, No apparent distress Eye Exam: bilateral normal Ears, Nose, Throat: normal ENT inspection Neck: non-tender, full range of motion, supple, normal inspection Respiratory: chest non-tender, lungs clear, normal breath sounds, no respiratory distress Cardiovascular/Chest: normal peripheral pulses, regular rate, rhythm, no edema, no murmur Gastrointestinal/Abdominal: non tender, soft, no organomegaly Back Exam: normal inspection Extremity: normal range of motion, non-tender, normal inspection, no pedal edema, no calf tenderness Neurologic: no motor/sensory deficits, alert, normal mood/affect, oriented x 3 Skin Exam: warm/dry, other - Right breast with dehisced vertical surgical incision in midline from nipple to inferior aspect of breast with moderate erythema surrounding incision site with minimal warmth and no noted drainage, there is approx 4x5 cm of underlying induration which is markedly ttp, no fluctuance noted, bedside sono without any obvious fluid collections Progress - Progress Progress: 04/05/19 11:35 Right breast postoperative pain -suspect due to ongoing cellulitis and poor healing. Consider also developing breast abscess vs neoplasm vs other -bedside sono by myself showed no discrete or large fluid collection to suggest abscess. Pt stable, afebrile. Redness and drainage around wound actually improving on Abx. -will repeat CBC, BMP - consider CT scan if WBC worsening -morphine 6 mg IV, Toradol 30 mg IV for pain control 04/05/19 12:27 -WBC 6,000, remainder of labs pretty unremarkable. Pt reports pain much improved. Suspect slowly healing postoperative cellulitis with likely developing scar tissue now as cause of her continued pain. Continue Levaquin and f/u with plastic surgeon in 3 days as scheduled. Will give Rx of Tylenol #4 PRN (#15) as she has run out of hydrocodone - this to last her until her surgeon can provide further pain med refills. Peng Bermudez MD Billing #[id number] Departure - Departure Clinical Impression: Postoperative cellulitis of surgical wound Time of Disposition: 12:30 Disposition: Discharge to Home or Self Care Condition: Good Departure Forms: ED Discharge - Pt. Copy, Patient Portal Self Enrollment Instructions: Surgical Wound (DC) Referrals: Venancio Santana MD [Primary Care Provider] - 1-2 Weeks Prescriptions: Acetaminophen W/ Codeine [Tylenol/Codeine #4 300-60 mg] 1 ea PO Q6H PRN 10 Days #15 tab PRN Reason: Pain Home Medications: Ambulatory Orders Gabapentin [Neurontin] 400 mg PO TID 03/19/18 HYDROcodone 10MG/APAP 325MG [[place] 10/325] 1 tab PO Q6H PRN 03/19/18 Levothyroxine Sodium [Synthroid] 200 mcg PO DAILY 03/19/18 Trazodone HCl [Trazodone Hydrochloride] 100 mg PO BEDTIME 03/19/18 Promethazine Tab [Phenergan Tablet] 25 mg PO Q6H PRN 12/27/18 Cyclobenzaprine HCl [Flexeril] 10 mg PO TID 02/26/19 Tramadol HCl 50 mg PO Q8HR PRN #20 tab 02/26/19 Sulfa/Trimeth 800/160 (Ds) Tab [Bactrim DS Tab] 1 ea PO BID #20 tab 03/23/19 Tramadol HCl 50 mg PO Q8HR PRN #10 tab 03/23/19 Acetaminophen W/ Codeine [Tylenol/Codeine #4 300-60 mg] 1 ea PO Q6H PRN 10 Days #15 tab 04/05/19 Additional Instructions: Follow up with your surgeon in 3 days as scheduled. Continue OTC Tylenol & ibuprofen for pain. You may take Tylenol #4 as directed for breakthrough pain only. Do not drive or operate heavy machinery when taking. I recommend applying a topical barrier protectant and clean dressing to your wound such as Vaseline every 6-8 hours to help with the healing process.
[2019-04-05 12:50] VITALS: BP 124/93; TEMP 98.1
== END 2019-04-05 12:49 | disposition home or self-care (01) ==
LOC: ER 11:00
DX: T81.49XA Infection following a procedure, other surgical site, initial encounter (principal); N61.0 Mastitis without abscess; I10 Essential (primary) hypertension; E07.9 Disorder of thyroid, unspecified; K21.9 Gastro-esophageal reflux disease without esophagitis; Z79.899 Other long term (current) drug therapy; Z88.6 Allergy status to analgesic agent
CPT/HCPCS: 36415; 80048; 85025; J1885; J2270

== ENCOUNTER 2019-04-18 13:05 | Emergency (ER) | payer OTHER ==
[2019-04-18 13:27] VITALS: BP 128/99; TEMP 98.1; O2SAT 96
[2019-04-18] MEDS ORDERED: KETOROLAC TROMETHAMINE INJ 30 MG/ML VIAL IM ONE (13:38)
[2019-04-18] MEDS ORDERED: HYDROcodone 7.5MG/APAP 325MG 1 EA TAB PO ONE (13:38)
--- NOTE | 2019-04-18 13:41 | ED.PDOC ---
History of Present Illness - General Chief Complaint: Skin/Abrasion/Tear Stated Complaint: right breast pain,s/p breast reduction Time Seen by Provider: 04/18/19 13:09 Source: patient Exam Limitations: no limitations - History of Present Illness Initial Comments: the patient 44-year-old female presenting to the emergency room secondary topain in the right breast. I saw the patient several weeks ago and thebreast reduction site had started to dehisce at that point. It has significantly progressed since that time. It does not appear overtly infected at this timeunlike at the last visit. The edges are fairly dry. There is a triangular shaped area at the lower aspect of the breast where it has come apart. She is seeing her surgeon in a few days. She is out of her pain medications for it. She has been simply doing a dry gauze over the area. No fever. No evidence of any extending infection. No extending erythema. No evidence of sepsis. No obvious abscess formation. Timing/Duration: unsure Severity: moderate Improving Factors: nothing Worsening Factors: nothing Associated Symptoms: denies symptoms - 6 Allergies/Adverse Reactions: Allergies Aspirin Allergy (Severe, Verified 07/08/18 13:50) Anaphylaxis Home Medications: Ambulatory Orders Gabapentin [Neurontin] 400 mg PO TID 03/19/18 HYDROcodone 10MG/APAP 325MG [[place] 10] 1 tab PO Q6H PRN 03/19/18 Levothyroxine Sodium [Synthroid] 200 mcg PO DAILY 03/19/18 Trazodone HCl [Trazodone Hydrochloride] 100 mg PO BEDTIME 03/19/18 Promethazine Tab [Phenergan Tablet] 25 mg PO Q6H PRN 12/27/18 Cyclobenzaprine HCl [Flexeril] 10 mg PO TID 02/26/19 Tramadol HCl 50 mg PO Q8HR PRN #20 tab 02/26/19 Sulfa/Trimeth 800/160 (Ds) Tab [Bactrim DS Tab] 1 ea PO BID #20 tab 03/23/19 Tramadol HCl 50 mg PO Q8HR PRN #10 tab 03/23/19 Acetaminophen W/ Codeine [Tylenol/Codeine #4 300-60 mg] 1 ea PO Q6H PRN 10 Days #15 tab 04/05/19 Tramadol HCl 50 mg PO Q8HR PRN #20 tab 04/18/19 Review of Systems - Review of Systems Constitutional: States: no symptoms reported EENTM: States: no symptoms reported Respiratory: States: no symptoms reported Cardiology: States: no symptoms reported Gastrointestinal/Abdominal: States: no symptoms reported Genitourinary: States: no symptoms reported Musculoskeletal: States: no symptoms reported Skin: States: see HPI Neurological: States: no symptoms reported Endocrine: States: no symptoms reported All other Systems: No Change from Baseline Past Medical History (General) - Patient Medical History Hx Seizures: No Hx Stroke: No Hx Dementia: No Hx Asthma: No Hx of COPD: No Hx Cardiac Disorders: No Hx Congestive Heart Failure: No Hx Pacemaker: No Hx Hypertension: Yes Hx Thyroid Disease: Yes Hx Diabetes: No Hx Gastroesophageal Reflux: Yes Hx Renal Disease: No Hx Cancer: No Hx of HIV: No Hx Hepatitis C: No Hx MRSA: No MRSA Source:: Wound - Vaccination History Hx Tetanus, Diphtheria Vaccination: No Hx Influenza Vaccination: No Hx Pneumococcal Vaccination: No - Social History Hx Tobacco Use: No Hx Chewing Tobacco Use: No Hx Alcohol Use: Yes Hx Substance Use: Yes - in the past Hx Substance Use Treatment: No Hx Depression: No Hx Physical Abuse: No Hx Emotional Abuse: No Hx Suspected Abuse: No - Female History Patient : No - hysterectomy Family Medical History - Family History Mother Family History: No Known Name: Shari Dickey Serakehinde Age (years): 66 Living Status: Still Living Hx Family Asthma: No Hx Family Congestive Heart Failure: No Hx Family Hypertension: No Hx Family Stroke: No Hx Cardiac Disease: No Hx Family Diabetes: No Hx Family Cancer: No Hx Family;Other: Depression,back pain and spondilosis Physical Exam - Physical Exam General Appearance: Alert, Comfortable, No apparent distress Eye Exam: bilateral normal Ears, Nose, Throat: hearing grossly normal Neck: non-tender Respiratory: lungs clear, normal breath sounds, no respiratory distress, no accessory muscle use Cardiovascular/Chest: normal peripheral pulses, no edema Peripheral Pulses: radial,right: 2+, radial,left: 2+ Rectal Exam: deferred Back Exam: no CVA tenderness, no vertebral tenderness Extremity: normal range of motion, normal inspection, no pedal edema, normal capillary refill 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 Comments: Vital Signs - 24 hr 04/18/19 13:22 Temperature 98.1 F Pulse Rate [ 115 H Left Brachial] Respiratory 16 Rate Blood Pressure 128/99 [Left Arm] O2 Sat by Pulse 96 Oximetry Progress - Progress Progress: 04/18/19 13:42 the patient's 44-year-old female presenting to emergency room eddie arredondo to persistent right breast pain from her dehisced breast reduction site. I do not see evidence of overt infection at this time. The patient will be written for some tramadol for as needed use for pain control. She needs to keep follow-up with her surgeon and her primary care doctor. The patient is being shown how to do wet-to-dry dressings which she can do 1 time a day after she showers to aid in tissue healing and reduce the likelihood of a returning infection in this open wound. I do suspect that she will likely need a skin graft at some point, or further reduction to close the defect. ER warnings were given. Departure - Departure Clinical Impression: Pain at surgical site Disposition: Discharge to Home or Self Care Condition: Fair Departure Forms: ED Discharge - Pt. Copy, Patient Portal Self Enrollment Instructions: DI for Wound Infection Diet: diabetic diet, regular diet Activity: increase activity as tolerated Referrals: Venancio Santana MD [Primary Care Provider] - 1-2 Weeks Prescriptions: Tramadol HCl 50 mg PO Q8HR PRN #20 tab PRN Reason: Moderate Pain Home Medications: Ambulatory Orders Gabapentin [Neurontin] 400 mg PO TID 03/19/18 HYDROcodone 10MG/APAP 325MG [[place] 10/325] 1 tab PO Q6H PRN 03/19/18 Levothyroxine Sodium [Synthroid] 200 mcg PO DAILY 03/19/18 Trazodone HCl [Trazodone Hydrochloride] 100 mg PO BEDTIME 03/19/18 Promethazine Tab [Phenergan Tablet] 25 mg PO Q6H PRN 12/27/18 Cyclobenzaprine HCl [Flexeril] 10 mg PO TID 02/26/19 Tramadol HCl 50 mg PO Q8HR PRN #20 tab 02/26/19 Sulfa/Trimeth 800/160 (Ds) Tab [Bactrim DS Tab] 1 ea PO BID #20 tab 03/23/19 Tramadol HCl 50 mg PO Q8HR PRN #10 tab 03/23/19 Acetaminophen W/ Codeine [Tylenol/Codeine #4 300-60 mg] 1 ea PO Q6H PRN 10 Days #15 tab 04/05/19 Tramadol HCl 50 mg PO Q8HR PRN #20 tab 04/18/19 Additional Instructions: the patient's 44-year-old female presenting to emergency room secondary to persistent right breast pain from her dehisced breast reduction site. I do not see evidence of overt infection at this time. The patient will be written for some tramadol for as needed use for pain control. She needs to keep follow-up with her surgeon and her primary care doctor. The patient is being shown how to do wet-to-dry dressings which she can do 1 time a day after she showers to aid in tissue healing and reduce the likelihood of a returning infection in this open wound. I do suspect that she will likely need a skin graft at some point, or further reduction to close the defect. ER warnings were given.
== END 2019-04-18 13:55 | disposition home or self-care (01) ==
LOC: ER 13:05
DX: G89.18 Other acute postprocedural pain (principal); I10 Essential (primary) hypertension; E07.9 Disorder of thyroid, unspecified; K21.9 Gastro-esophageal reflux disease without esophagitis; Z88.6 Allergy status to analgesic agent; Z79.899 Other long term (current) drug therapy

== ENCOUNTER 2019-04-19 23:47 | Observation (INO) | payer OTHER ==
[2019-04-20] MEDS ORDERED: HYDROmorphone HCL INJ 2 MG/ML VIAL IV ONE ×2 (00:11→01:28)
[2019-04-20] MEDS ORDERED: ONDANSETRON INJ 4 MG/2 ML VIAL IV ONE (00:11)
--- NOTE | 2019-04-20 00:57 | ED.PDOC ---
History of Present Illness - General Chief Complaint: Post Op Problems Stated Complaint: Breast Infection Time Seen by Provider: 04/19/19 23:53 Source: patient, RN notes reviewed, Vital Signs reviewed Exam Limitations: no limitations - History of Present Illness Initial Comments: Patient is a 44-year-old white female who presents with complaints of bilateral breast pain. Approximately 6 weeks ago patient underwent breast reduction surgery by Dr. Waterman. Patient has had complications with the surgery consisting of infection in her breasts. Patient has been seen by her surgeon and he placed her on antibiotics approximately 2 weeks ago. She completed the antibiotic regimen approximately one week ago. Patient's had worsening pain and discomfort over the last 4 days. It is throbbing in nature. It is sharp and stabbing. It is worse with movement or palpation. Nothing seems to make it better. Patient's narcotic pain medicines are no longer helping. Timing/Duration: constant, getting worse, other - ongoing for last 4 weeks Severity: severe Improving Factors: nothing Worsening Factors: movement Associated Symptoms: fever/chills - chills only Allergies/Adverse Reactions: Allergies Aspirin Allergy (Severe, Verified 07/08/18 13:50) Anaphylaxis Home Medications: Ambulatory Orders Gabapentin [Neurontin] 400 mg PO TID 03/19/18 HYDROcodone 10MG/APAP 325MG [[place] 10/325] 1 tab PO Q6H PRN 03/19/18 Levothyroxine Sodium [Synthroid] 200 mcg PO DAILY 03/19/18 Trazodone HCl [Trazodone Hydrochloride] 100 mg PO BEDTIME 03/19/18 Promethazine Tab [Phenergan Tablet] 25 mg PO Q6H PRN 12/27/18 Cyclobenzaprine HCl [Flexeril] 10 mg PO TID 02/26/19 Tramadol HCl 50 mg PO Q8HR PRN #20 tab 02/26/19 Sulfa/Trimeth 800/160 (Ds) Tab [Bactrim DS Tab] 1 ea PO BID #20 tab 03/23/19 Tramadol HCl 50 mg PO Q8HR PRN #10 tab 03/23/19 Acetaminophen W/ Codeine [Tylenol/Codeine #4 300-60 mg] 1 ea PO Q6H PRN 10 Days #15 tab 04/05/19 Tramadol HCl 50 mg PO Q8HR PRN #20 tab 04/18/19 Review of Systems - Review of Systems Constitutional: States: see HPI, chills EENTM: States: no symptoms reported Respiratory: States: no symptoms reported Cardiology: States: no symptoms reported Gastrointestinal/Abdominal: States: no symptoms reported Genitourinary: States: no symptoms reported Musculoskeletal: States: see HPI, other - bilateral breast pain Skin: States: see HPI, change in color, other - surgical wound dehiscence with infection and disclamation. Neurological: States: no symptoms reported Endocrine: States: no symptoms reported Hematologic/Lymphatic: States: no symptoms reported All other Systems: Reviewed and Negative Past Medical History (General) - Patient Medical History Hx Seizures: No Hx Stroke: No Hx Dementia: No Hx Asthma: No Hx of COPD: No Hx Cardiac Disorders: No Hx Congestive Heart Failure: No Hx Pacemaker: No Hx Hypertension: Yes Hx Thyroid Disease: Yes Hx Diabetes: No Hx Gastroesophageal Reflux: Yes Hx Renal Disease: No Hx Cancer: No Hx of HIV: No Hx Hepatitis C: No Hx MRSA: No MRSA Source:: Wound Surgical History: Hysterectomy, other - Vaccination History Hx Tetanus, Diphtheria Vaccination: No Hx Influenza Vaccination: No Hx Pneumococcal Vaccination: No Immunizations Up to Date: No - Social History Hx Tobacco Use: No Hx Chewing Tobacco Use: No Hx Alcohol Use: Yes Hx Substance Use: Yes - in the past Hx Substance Use Treatment: No Hx Depression: No Hx Physical Abuse: No Hx Emotional Abuse: No Hx Suspected Abuse: No - Female History Patient is a Female of Child Bearing Age (10 -59 yrs old): Yes Patient : No Family Medical History - Family History Mother Family History: No Known Name: Shari Murdock Age (years): 66 Living Status: Still Living Hx Family Asthma: No Hx Family Congestive Heart Failure: No Hx Family Hypertension: No Hx Family Stroke: No Hx Cardiac Disease: No Hx Family Diabetes: No Hx Family Cancer: No Hx Family;Other: Depression,back pain and spondilosis Physical Exam - Physical Exam General Appearance: Alert, Anxious, Obvious distress, Obese, Well Developed, Well Groomed, Well Hydrated, Well Nourished, Other - bilateral facial tattoos Eye Exam: bilateral normal Ears, Nose, Throat: hearing grossly normal, normal ENT inspection, normal pharynx Neck: non-tender, full range of motion, supple, normal inspection Respiratory: lungs clear, normal breath sounds, no respiratory distress Cardiovascular/Chest: normal peripheral pulses, no edema, no gallop, tachycardia, other - surgical wound dehiscence with infection and desquamation. 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 Lymphatic: axilla node tender (R), axilla node tender (L) Progress - Progress Progress: Differential diagnosis: Abscessed abscess, breast cellulitis, dehiscence, fever among others 04/20/19 02:32 Patient's pain is better controlled. I have spoken to her plastic surgeon who recommends follow up with him on Sunday. He does have significant hypokalemia for which I will admit her to the hospital for repletion. I discussed the plan of care with the patient and she voices understanding and agreement. Jl Armas M.D. #[id number] - Results/Orders Results/Orders: 04/20/19 00:32 BLOOD CULTURE Stat 04/20/19 01:15 KCl 40 Meq/Water For Inj 100Ml [Potassium 40meq in Water 100ml] 40 meq Premix Bag 1 bag IVPB ONCE Laboratory Results - last 24 hr 04/20/19 04/20/19 04/20/19 00:32 00:32 00:32 WBC 7.9 RBC 4.05 L Hgb 12.7 Hct 37.8 MCV 93.1 MCH 31.2 H MCHC 33.5 RDW 14.3 Plt Count 455 H MPV 7.4 Absolute Neuts (auto) 3.60 Absolute Lymphs (auto) 3.00 Absolute Monos (auto) 1.00 H Absolute Eos (auto) 0.30 Absolute Basos (auto) 0.10 Neutrophils % 45.1 Lymphocytes % 38.3 Monocytes % 12.0 H Eosinophils % 3.2 Basophils % 1.4 Sodium 146 H Potassium 2.3 L* Chloride 111 Carbon Dioxide 23 Anion Gap 14.3 BUN 6 L Creatinine 0.64 BUN/Creatinine Ratio 9.4 L Random Glucose 93 Serum Osmolality 287.9 Lactic Acid Calcium 8.9 Total Bilirubin 0.4 AST 34 ALT 36 Alkaline Phosphatase 90 Serum Total Protein 7.2 Albumin 4.1 Globulin 3.1 Albumin/Globulin Ratio 1.3 Serum HCG, Qual Negative 04/20/19 01:10 WBC RBC Hgb Hct MCV MCH MCHC RDW Plt Count MPV Absolute Neuts (auto) Absolute Lymphs (auto) Absolute Monos (auto) Absolute Eos (auto) Absolute Basos (auto) Neutrophils % Lymphocytes % Monocytes % Eosinophils % Basophils % Sodium Potassium Chloride Carbon Dioxide Anion Gap BUN Creatinine BUN/Creatinine Ratio Random Glucose Serum Osmolality Lactic Acid 2.3 H Calcium Total Bilirubin AST ALT Alkaline Phosphatase Serum Total Protein Albumin Globulin Albumin/Globulin Ratio Serum HCG, Qual PROCEDURE: CT Chest CLINICAL HISTORY: 44 years Female bilateral breast pain and infection R>L TECHNIQUE: Contiguous axial images obtained through the chest after IV contrast administration. Coronal reformatted and multiplanar MIP images provided. This CT exam was performed according to our departmental dose- optimization program, which includes one or more of the following dose reduction techniques: automated exposure control, adjustment of the mA and/or kV according to patient size, and/or use of iterative reconstruction technique. COMPARISON: No prior exams provided for comparison. FINDINGS: The anterolateral aspects of both breasts are incompletely imaged. There is skin thickening and abrasions over the anterior right breast. No visualized soft tissue gas, fluid collection, or foreign body. Aside from mild dependent atelectasis, the lungs are clear without focal consolidation, effusion, or pneumothorax. The central airways are patent. The heart is normal in size without pericardial effusion. The aorta and central pulmonary vasculature are normal in caliber. No lymphadenopathy in the chest. Visualized upper abdominal and osseous structures demonstrate no acute findings. IMPRESSION: The breasts are incompletely imaged. There is skin thickening and abrasions over the right anterior breast. No visualized soft tissue gas, fluid collection, or foreign body. No acute cardiopulmonary abnormalities. Electronically signed by: Leigha Platt MD 04/20/2019 1:37 AM DOG BEHAVIORIST - EKG/XRAY/CT CT Ordered: No Departure - Departure Clinical Impression: Hypokalemia Surgical wound dehiscence Qualifiers: Encounter type: initial encounter Qualified Code(s): T81.31XA - Disruption of external operation (surgical) wound, not elsewhere classified, initial encounter Time of Disposition: 02:37 Disposition: Admit Patient Condition: Good Departure Forms: ED Discharge - Pt. Copy, Patient Portal Self Enrollment Referrals: Venancio Santana MD [Primary Care Provider] - 1-5 Days Home Medications: Ambulatory Orders Gabapentin [Neurontin] 400 mg PO TID 03/19/18 HYDROcodone 10MG/APAP 325MG [[place] /325] 1 tab PO Q6H PRN 03/19/18 Levothyroxine Sodium [Synthroid] 200 mcg PO DAILY 03/19/18 Trazodone HCl [Trazodone Hydrochloride] 100 mg PO BEDTIME 03/19/18 Promethazine Tab [Phenergan Tablet] 25 mg PO Q6H PRN 12/27/18 Cyclobenzaprine HCl [Flexeril] 10 mg PO TID 02/26/19 Tramadol HCl 50 mg PO Q8HR PRN #20 tab 02/26/19 Sulfa/Trimeth 800/160 (Ds) Tab [Bactrim DS Tab] 1 ea PO BID #20 tab 03/23/19 Tramadol HCl 50 mg PO Q8HR PRN #10 tab 03/23/19 Acetaminophen W/ Codeine [Tylenol/Codeine #4 300-60 mg] 1 ea PO Q6H PRN 10 Days #15 tab 04/05/19 Tramadol HCl 50 mg PO Q8HR PRN #20 tab 04/18/19 Decision To Admit - Decistion To Admit Decision to Admit Reason: Admit from ER Decision to Admit Date: 04/20/19 Decision to Admit Time: 02:00
[2019-04-20] MEDS ORDERED: KCL 40 MEQ/WATER FOR INJ 100ML 40 MEQ in PREMIX BAG 1 BAG IVPB ONE (01:15)
[2019-04-20] MEDS ORDERED: POTASSIUM BICARBONATE 25 MEQ TAB PO ONE (01:15)
[2019-04-20] MEDS ORDERED: SODIUM CHLORIDE 0.9% 1000ML 1,000 ML IVS ONE (01:18)
[2019-04-20] MEDS ORDERED: KCL 40 MEQ/WATER FOR INJ 100ML 100 ML IVPB ONE (01:23)
--- NOTE | 2019-04-20 01:39 | CT ---
PROCEDURE: CT Chest CLINICAL HISTORY: 44 years Female bilateral breast pain and infection R>L TECHNIQUE: Contiguous axial images obtained through the chest after IV contrast administration. Coronal reformatted and multiplanar MIP images provided. This CT exam was performed according to our departmental dose-optimization program, which includes one or more of the following dose reduction techniques: automated exposure control, adjustment of the mA and/or kV according to patient size, and/or use of iterative reconstruction technique. COMPARISON: No prior exams provided for comparison. FINDINGS: The anterolateral aspects of both breasts are incompletely imaged. There is skin thickening and abrasions over the anterior right breast. No visualized soft tissue gas, fluid collection, or foreign body. Aside from mild dependent atelectasis, the lungs are clear without focal consolidation, effusion, or pneumothorax. The central airways are patent. The heart is normal in size without pericardial effusion. The aorta and central pulmonary vasculature are normal in caliber. No lymphadenopathy in the chest. Visualized upper abdominal and osseous structures demonstrate no acute findings. IMPRESSION: The breasts are incompletely imaged. There is skin thickening and abrasions over the right anterior breast. No visualized soft tissue gas, fluid collection, or foreign body. No acute cardiopulmonary abnormalities. Electronically signed by: Leigha Platt MD 04/20/2019 1:37 AM MATCH UP WORKER
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
[2019-04-20] MEDS ORDERED: SODIUM CHLORIDE 0.9% (FLUSH) 10 ML SYG IV PRN (05:02)
[2019-04-20] MEDS ORDERED: HYDROmorphone HCL INJ 2 MG/ML VIAL IV PRN (05:07)
[2019-04-20] MEDS ORDERED: HYDROcodone 5MG/APAP 325MG 1 EA TAB PO PRN (05:09)
[2019-04-20] MEDS ORDERED: SODIUM CHLORIDE 0.45% 1000ML 1,000 ML IVS ONE (05:12)
[2019-04-20] MEDS ORDERED: IV SET AND CAP CHANGE INJ INJ SCH (05:30)
[2019-04-20] MEDS: PANTOPRAZOLE SODIUM TAB 40 MG PO SCH (05:56)
[2019-04-20] MEDS ORDERED: HYDROcodone 7.5MG/APAP 325MG 1 EA TAB ONE (06:04)
[2019-04-20] MEDS: LEVOTHYROXINE SODIUM 0.1 MG TAB PO SCH (09:04)
[2019-04-20] MEDS: SODIUM CHLORIDE 0.9% (FLUSH) 10 ML SYG IV SCH ×2 (09:05→21:12)
[2019-04-20] MEDS: GABAPENTIN 300 MG CAP PO SCH ×4 (09:05→21:12)
[2019-04-20] MEDS: CYCLOBENZAPRINE HCL 10 MG TAB PO PRN (09:05)
[2019-04-20] MEDS: HYDROcodone 10MG/APAP 325MG 1 EA TAB PO PRN ×3 (09:49→17:51)
[2019-04-20] MEDS ORDERED: HYDROcodone 10MG/APAP 325MG 1 EA TAB PO ONE (12:25)
[2019-04-20] MEDS ORDERED: VANCOMYCIN PER PHARMACY INJ SCH (14:00)
[2019-04-20] MEDS ORDERED: VANCOMYCIN HCL INJ 1,000 MG VIAL IVPB ONE ×2 (15:01→21:07)
[2019-04-20] MEDS ORDERED: SODIUM CHLORIDE 0.9% 250ML 250 ML ONE ×2 (15:01→21:06)
[2019-04-20] MEDS ORDERED: VANCOMYCIN HCL INJ 500 MG VIAL ONE ×2 (15:01→21:06)
[2019-04-20] MEDS: VANCOMYCIN HCL INJ 1,000 MG, VANCOMYCIN HCL INJ 250 MG in SODIUM CHLORIDE 0.9% 250ML 25... IVPB SCH ×2 (15:12→22:17)
[2019-04-20] MEDS: ENOXAPARIN SODIUM 40 MG/0.4 ML SYG SUBCU SCH (21:11)
[2019-04-20] MEDS: traZODone HCL 100 MG TAB PO SCH (21:15)
[2019-04-21] MEDS: HYDROcodone 10MG/APAP 325MG 1 EA TAB PO PRN ×4 (00:35→22:57)
[2019-04-21] MEDS: PANTOPRAZOLE SODIUM TAB 40 MG PO SCH (06:45)
[2019-04-21] MEDS: LEVOTHYROXINE SODIUM 0.1 MG TAB PO SCH (06:45)
[2019-04-21] MEDS ORDERED: VANCOMYCIN HCL INJ 1,000 MG VIAL IVPB ONE ×4 (06:58→19:20)
[2019-04-21] MEDS ORDERED: SODIUM CHLORIDE 0.9% 250ML 250 ML ONE ×4 (06:58→19:19)
[2019-04-21] MEDS ORDERED: VANCOMYCIN HCL INJ 500 MG VIAL ONE ×4 (06:58→19:19)
[2019-04-21] MEDS: VANCOMYCIN HCL INJ 1,000 MG, VANCOMYCIN HCL INJ 250 MG in SODIUM CHLORIDE 0.9% 250ML 25... IVPB SCH ×3 (07:11→22:56)
[2019-04-21] MEDS: GABAPENTIN 300 MG CAP PO SCH ×4 (08:48→20:19)
[2019-04-21] MEDS: SODIUM CHLORIDE 0.9% (FLUSH) 10 ML SYG IV SCH ×2 (08:48→20:20)
[2019-04-21] MEDS: ONDANSETRON INJ 4 MG/2 ML VIAL IV PRN ×2 (11:05→22:55)
[2019-04-21] MEDS: CYCLOBENZAPRINE HCL 10 MG TAB PO PRN ×2 (13:34→22:57)
--- NOTE | 2019-04-21 13:37 | PN ---
SUPERVISING PHYSICIAN: Abdelrahman Arteaga MD DATE: 04/21/19 SUBJECTIVE: The patient does not really complain of any significant pain at this time. No overnight events were reported. OBJECTIVE: VITAL SIGNS: Blood pressure 127/81. Heart rate 95. Respiratory rate 18. Temperature 97.5. Oxygen saturation 95%. GENERAL: Ms. Porras is a 44-year-old female in no active distress. NEUROLOGIC: Alert and oriented. LUNGS: Clear to auscultation bilaterally. CARDIOVASCULAR: Regular rate and rhythm. Normal S1, S2. ABDOMEN: Soft. Positive bowel sounds. EXTREMITIES: Lower extremities with no edema. SKIN: Skin was examined in the breast area where the wounds are. The right breast has a larger dehisced wound with some purulent drainage, however, the erythema appears to be improved. Left breast with less of a wound with some purulent drainage as well. LABORATORY: Labs show normal white count, stable hemoglobin at 11.6. Chemistry was unremarkable. ASSESSMENT: 1. Methicillin-resistant Staphylococcus aureus of dehisced wounds to bilateral breasts. 2. Chronic low back pain. 3. Hypothyroidism. 4. Chronic anxiety and depression. PLAN: Due to the wounds that are already present and known about by her surgeon, we will continue the vancomycin. She has a followup appointment at 9:30 tomorrow, so we will continue the vancomycin over the next 24 hours. My plan is to discharge her at 8 o'clock in the morning so that she can go home and make it to her followup appointment. Her white count is normal. She is not septic. I discussed this with Dr. Santana and he agrees. He will followup with her on Sunday at 9:45 in the morning. That appointment is going to be made just in case she does not get admitted in the [facility] where her procedure was done. #[id number] MTDD
[2019-04-21] MEDS: traZODone HCL 100 MG TAB PO SCH (20:19)
[2019-04-21] MEDS: ENOXAPARIN SODIUM 40 MG/0.4 ML SYG SUBCU SCH (20:20)
[2019-04-22] MEDS: PANTOPRAZOLE SODIUM TAB 40 MG PO SCH (05:54)
[2019-04-22] MEDS: LEVOTHYROXINE SODIUM 0.1 MG TAB PO SCH (05:54)
[2019-04-22 05:59] VITALS: BP 102/68; TEMP 97.5; O2SAT 99
[2019-04-22] MEDS: VANCOMYCIN HCL INJ 1,000 MG, VANCOMYCIN HCL INJ 250 MG in SODIUM CHLORIDE 0.9% 250ML 25... IVPB SCH (06:31)
[2019-04-22] MEDS: HYDROcodone 10MG/APAP 325MG 1 EA TAB PO PRN (07:59)
--- NOTE | 2019-04-22 11:59 | DS ---
SUPERVISING PHYSICIAN: Abdelrahman Arteaga MD ADMISSION DIAGNOSIS: 1. Cellulitis of bilateral breasts status post breast reduction surgery. 2. Hypokalemia. 3. Mild hypernatremia. 4. Chronic pain syndrome. 5. Hypothyroidism. 6. Generalized anxiety disorder. 7. Schizophrenia. DISCHARGE DIAGNOSIS: 1. Cellulitis of bilateral breasts status post breast reduction surgery. 2. Hypokalemia. 3. Mild hypernatremia. 4. Chronic pain syndrome. 5. Hypothyroidism. 6. Generalized anxiety disorder. 7. Schizophrenia. HOSPITAL COURSE: This is a 44-year-old female who came to the Emergency Room with bilateral breast pain. On March 03, 2019, she had a breast reduction surgery by Dr. Waterman in [place]. Apparently since that time, she had developed an infection in both breasts since that surgery. She has been seen by her surgeon and was placed on antibiotics. She was additionally seen by her primary care physician, Dr. Maggie Santana, who also put her on Bactrim and doxycycline. Apparently she finished her antibiotics about 4 days ago and has not had any significant improvement and, in fact, worsening of the infection. She was seen in the Emergency Room and noted to have an elevated heart rate. White blood cell count was normal, but the lactic acid was elevated at 2.3. Potassium was low at 2.3 as well. She was referred for admission for antibiotic therapy. The wound has previously grown out MRSA, so she was placed on vancomycin. Her surgeon in [place] was contacted and reportedly declined to take the patient at that time and stated that she had a followup on Sunday. She remained in the hospital on vancomycin. There was no significant change in her wounds while she was here. Repeat cultures were done and showed light growth of MRSA once again. There was no surrounding cellulitis from the central wounds, however, the wounds were draining purulent drainage. Due to the fact that she had the followup appointment with her surgeon, the patient will be discharged today in stable condition. At this point, we are going to defer to his care regarding her wounds. I have though made a followup appointment with Dr. Santana tomorrow morning in the event that Dr. Waterman does not admit her and debride the wounds in [place]. She will probably need IV vancomycin, so if she comes back from [place] and has not been admitted, she may need a repeat admission versus outpatient vancomycin and wound care consult. #[id number] [facility]
== END 2019-04-22 08:00 | disposition home or self-care (01) ==
LOC: ER 23:47 → MS 04-20 02:43
PROVIDERS: ADMIT Nurse Practitioner Acute Care; ATTEND Nurse Practitioner
DX: N61.0 Mastitis without abscess (principal); B95.62 Methicillin resistant Staphylococcus aureus infection as the cause of diseases classified elsewhere; G89.18 Other acute postprocedural pain; E87.6 Hypokalemia; E87.0 Hyperosmolality and hypernatremia; T81.31XA Disruption of external operation (surgical) wound, not elsewhere classified, initial encounter; G89.4 Chronic pain syndrome; M54.5 Low back pain; E03.9 Hypothyroidism, unspecified; F41.1 Generalized anxiety disorder; F20.9 Schizophrenia, unspecified; E87.2 Acidosis; I10 Essential (primary) hypertension; K21.9 Gastro-esophageal reflux disease without esophagitis; F17.210 Nicotine dependence, cigarettes, uncomplicated; Z98.890 Other specified postprocedural states; Z79.891 Long term (current) use of opiate analgesic; Z79.890 Hormone replacement therapy; Z79.899 Other long term (current) drug therapy; Z88.6 Allergy status to analgesic agent; Z96.82 Presence of neurostimulator; Z90.710 Acquired absence of both cervix and uterus; Z98.891 History of uterine scar from previous surgery
CPT/HCPCS: 96366 ×3; 96367; 96365; 96375; 96376 ×3; 96372 ×2; J1170 ×2; J2405 ×3; J7799; J7030; J7050 ×6; J3370 ×12; J1650 ×2; J3480; 80053 ×3; 36415 ×4; 86140; 85025 ×3; 87040 ×2; 87070 ×3; 87205 ×3; 84703; 83735; 85651; 80202; 83605 ×2; 71275; 94760 ×5; 99406; 99285; G0378

== ENCOUNTER 2019-04-23 20:19 | Emergency (ER) | payer OTHER ==
[2019-04-23] MEDS: HYDROmorphone HCL INJ 2 MG/ML VIAL IV ONE ×2 (22:17→22:55)
[2019-04-23] MEDS: ONDANSETRON INJ 4 MG/2 ML VIAL IV ONE (22:18)
--- NOTE | 2019-04-23 23:25 | ED.PDOC ---
History of Present Illness - General Chief Complaint: Skin/Abrasion/Tear Stated Complaint: rt pain to breast, post Sx. Time Seen by Provider: 04/23/19 21:57 Source: patient, RN notes reviewed, Vital Signs reviewed, old records Exam Limitations: no limitations - History of Present Illness Initial Comments: Pt is 2 days s/p wound debridement of right breast. Pt now on abx. Pt here b/c tramadol is not working to control the pain. Pt denies f/c/n/v/d. No cp/sob. Severity: moderate Location: torso Improving Factors: medication Worsening Factors: movement Associated Symptoms: denies symptoms Allergies/Adverse Reactions: Allergies Aspirin Allergy (Severe, Verified 07/08/18 13:50) Anaphylaxis Home Medications: Ambulatory Orders Gabapentin [Neurontin] 600 mg PO QID 03/19/18 Levothyroxine Sodium [Synthroid] 200 mcg PO DAILY 03/19/18 Trazodone HCl [Trazodone Hydrochloride] 100 mg PO BEDTIME 03/19/18 Promethazine Tab [Phenergan Tablet] 25 mg PO Q6H PRN 12/27/18 Cyclobenzaprine HCl [Flexeril] 10 mg PO TID 02/26/19 Review of Systems - Review of Systems Constitutional: States: no symptoms reported EENTM: States: no symptoms reported Respiratory: States: no symptoms reported Cardiology: States: no symptoms reported Gastrointestinal/Abdominal: States: no symptoms reported Genitourinary: States: no symptoms reported Musculoskeletal: States: no symptoms reported Skin: States: see HPI - right breast Neurological: States: no symptoms reported Endocrine: States: no symptoms reported Hematologic/Lymphatic: States: no symptoms reported All other Systems: Reviewed and Negative Past Medical History (General) - Patient Medical History Hx Seizures: No Hx Stroke: No Hx Dementia: No Hx Asthma: No Hx of COPD: No Hx Cardiac Disorders: No Hx Congestive Heart Failure: No Hx Pacemaker: No Hx Hypertension: Yes Hx Thyroid Disease: Yes Hx Diabetes: No Hx Gastroesophageal Reflux: Yes Hx Renal Disease: No Hx Cancer: No Hx of HIV: No Hx Hepatitis C: No Hx MRSA: No MRSA Source:: Wound Surgical History: other - Vaccination History Hx Tetanus, Diphtheria Vaccination: No Hx Influenza Vaccination: No Hx Pneumococcal Vaccination: No - Social History Hx Tobacco Use: Yes Hx Chewing Tobacco Use: No Hx Alcohol Use: Yes Hx Substance Use: Yes - in the past Hx Substance Use Treatment: No Hx Depression: No Hx Physical Abuse: No Hx Emotional Abuse: No Hx Suspected Abuse: No - Female History Patient : No Family Medical History - Family History Father Age (years): 73 Living Status: Still Living Hx Family;Other: prostate CA and heart attact 2018 Mother Family History: No Known Name: Shari Murdock Age (years): 66 Living Status: Still Living Hx Family Asthma: No Hx Family Congestive Heart Failure: No Hx Family Hypertension: No Hx Family Stroke: No Hx Cardiac Disease: No Hx Family Diabetes: No Hx Family Cancer: No Hx Family;Other: Depression,back pain and spondilosis Physical Exam - Physical Exam General Appearance: Alert, Anxious, Obvious distress, Well Developed, Well Groomed, Well Hydrated, Well Nourished Eyes, Ears, Nose, Throat Exam: PERRL/EOMI, normal ENT inspection, pharynx normal Neck: non-tender, full range of motion, supple, normal inspection Cardiovascular/Chest: normal peripheral pulses, regular rate, rhythm, no murmur, other - patient with a debrided wound of right breast with no necrotic tissue. It is t firm. It is not particularly hot. 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 It is t firm. It is not particularly hot. Lymphatic: no adenopathy Progress - Progress Progress: differential diagnosis:cellulitis, abscess, wound dehisence, inadequate pain control 04/23/19 23:27 patient with improved pain plan discharg home with follow-up with PCP Jl Armas M.D. #[id number] Departure - Departure Clinical Impression: Wound dehiscence, Breast pain, right Time of Disposition: 23:31 Disposition: Discharge to Home or Self Care Condition: Good Departure Forms: ED Discharge - Pt. Copy, Patient Portal Self Enrollment Instructions: Wound Dehiscence (DC) Referrals: Venancio Santana MD [Primary Care Provider] - 1-2 Days Home Medications: Ambulatory Orders Gabapentin [Neurontin] 600 mg PO QID 03/19/18 Levothyroxine Sodium [Synthroid] 200 mcg PO DAILY 03/19/18 Trazodone HCl [Trazodone Hydrochloride] 100 mg PO BEDTIME 03/19/18 Promethazine Tab [Phenergan Tablet] 25 mg PO Q6H PRN 12/27/18 Cyclobenzaprine HCl [Flexeril] 10 mg PO TID 02/26/19
[2019-04-24 00:01] VITALS: BP 127/67; O2SAT 97
[2019-04-24 00:03] VITALS: TEMP 98.1
== END 2019-04-23 23:50 | disposition home or self-care (01) ==
LOC: ER 20:19
DX: T81.31XA Disruption of external operation (surgical) wound, not elsewhere classified, initial encounter (principal); N64.4 Mastodynia; I10 Essential (primary) hypertension; E07.9 Disorder of thyroid, unspecified; K21.9 Gastro-esophageal reflux disease without esophagitis; Z87.891 Personal history of nicotine dependence; Z79.899 Other long term (current) drug therapy; Z88.6 Allergy status to analgesic agent
CPT/HCPCS: J1170; J2405

== ENCOUNTER → 2019-04-28 | Outpatient (CLI) | payer OTHER | LOC: GMAM 14:36 | PROVIDERS: ATTEND Family Medicine | DX: G89.4 Chronic pain syndrome (principal); E03.9 Hypothyroidism, unspecified; E87.6 Hypokalemia ==

== ENCOUNTER 2019-05-10 10:49 | Emergency (ER) | payer OTHER ==
[2019-05-10] MEDS ORDERED: SODIUM CHLORIDE 0.9% (FLUSH) 10 ML SYG IV PRN (11:57)
[2019-05-10] MEDS ORDERED: MORPHINE SULFATE INJ 10 MG/ML VIAL IV ONE ×2 (11:57→13:25)
[2019-05-10] MEDS ORDERED: SODIUM CHLORIDE 0.9% 1000ML 1,000 ML IVS ONE (11:59)
--- NOTE | 2019-05-10 12:04 | ED.PDOC ---
History of Present Illness - General Chief Complaint: General Stated Complaint: R breast tenderness at wound site Time Seen by Provider: 05/10/19 11:12 Source: patient - History of Present Illness Initial Comments: 44 yo female s/p BL breast reduction (03/03/19) who presents with cc of right breast pain. Pt reports prolonged and complicated postop course since her breast surgery. The right breast wound became dehisced and has since developed postoperative cellulitis and pt has been on alternating courses of antibiotics for the past couple months. Currently on amoxicillin BID & Bactrim for past 3 days which was Rx'd to her by her surgeon - Dr. Nguyen at [facility]. Reports however, worsening of right breast pain - describes constant 8/10 throbbing pain to entire breast, worse with palpation. She has been taking Nebo 10 q6h at home with decent control until the past couple days - reports only moderate relief for 2-3 hours now. Reports chills but no fevers. No other systemic sx's reported. There has been occasional large brown drainage from the right breast. Reports large open wound and hardening of nearly the entire breast as well which is not improving. Denies warmth. She did last undergo debridement of some necrotic tissue on 04/23. Allergies/Adverse Reactions: Allergies Aspirin Allergy (Severe, Verified 07/08/18 13:50) Anaphylaxis Home Medications: Ambulatory Orders RX: Gabapentin [Neurontin] 600 mg PO QID 03/19/18 RX: Levothyroxine Sodium [Synthroid] 200 mcg PO DAILY 03/19/18 RX: Trazodone HCl [Trazodone Hydrochloride] 100 mg PO BEDTIME 03/19/18 RX: Promethazine Tab [Phenergan Tablet] 25 mg PO Q6H PRN 12/27/18 RX: Cyclobenzaprine HCl [Flexeril] 10 mg PO TID 02/26/19 Acetaminophen W/ Codeine [Tylenol W/ CODEINE #3] 1 ea PO Q6H PRN 10 Days #10 05/10/19 Review of Systems - Review of Systems Review of Systems: 05/10/19 12:04 as per HPI All other Systems: Reviewed and Negative Past Medical History (General) - Patient Medical History Hx Seizures: No Hx Stroke: No Hx Dementia: No Hx Asthma: No Hx of COPD: No Hx Cardiac Disorders: No Hx Congestive Heart Failure: No Hx Pacemaker: No Hx Hypertension: Yes Hx Thyroid Disease: Yes Hx Diabetes: No Hx Gastroesophageal Reflux: Yes Hx Renal Disease: No Hx Cancer: No Hx of HIV: No Hx Hepatitis C: No Hx MRSA: No MRSA Source:: Wound - Vaccination History Hx Tetanus, Diphtheria Vaccination: No Hx Influenza Vaccination: No Hx Pneumococcal Vaccination: No - Social History Hx Tobacco Use: Yes Hx Chewing Tobacco Use: No Hx Alcohol Use: Yes Hx Substance Use: Yes - in the past Hx Substance Use Treatment: No Hx Depression: No Hx Physical Abuse: No Hx Emotional Abuse: No Hx Suspected Abuse: No - Female History Patient : No Family Medical History - Family History Father Age (years): 73 Living Status: Still Living Hx Family;Other: prostate CA and heart attact 2018 Mother Family History: No Known Name: Shari Murdock Age (years): 66 Living Status: Still Living Hx Family Asthma: No Hx Family Congestive Heart Failure: No Hx Family Hypertension: No Hx Family Stroke: No Hx Cardiac Disease: No Hx Family Diabetes: No Hx Family Cancer: No Hx Family;Other: Depression,back pain and spondilosis Physical Exam - Physical Exam General Appearance: Alert, No apparent distress Eye Exam: bilateral normal Ears, Nose, Throat: hearing grossly normal, normal ENT inspection, normal pharynx Neck: non-tender, full range of motion, supple, normal inspection Respiratory: lungs clear, normal breath sounds, no respiratory distress Cardiovascular/Chest: normal peripheral pulses, regular rate, rhythm, no edema, no murmur Gastrointestinal/Abdominal: non tender, soft, no organomegaly Back Exam: normal inspection, no CVA tenderness Extremity: normal range of motion, non-tender, normal inspection 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 No noted drainage from the breast, no appreciable fluctuance Progress - Progress Progress: 05/10/19 12:06 Right breast pain -consider developing abscess vs cellulitis vs fibrotic tissue vs other postoperative complications vs other -obtain labs, 2v CXR, likely will obtain CT scan for further eval -morphine 6 mg IV for pain 12/07/19 15:33 -CT Chest read just now back. Shows some worsening inflammation/stranding of the right breast but no focal or drainable abscesses. Labwork shows normal WBC without left shift and pt is without fever. Advised continuing Abx as Rx'd by her surgeon and close outpatient f/u with surgery and PCP. Pt states she is nearly out of Nebo so will give Tylenol #3 PRN Rx until she can call her regular doctors for a refill of pain meds. -dc home in good condition. Pain much improved with ED trx. Peng Bermudez MD Billing #[id number] - Results/Orders Results/Orders: 05/10/19 13:03 Hold Metformin x 48Hrs [id number] Laboratory Results - last 24 hr 05/10/19 05/10/19 13:00 13:00 WBC 5.9 RBC 4.06 L Hgb 12.7 Hct 38.0 MCV 93.5 MCH 31.4 H MCHC 33.5 RDW 13.8 Plt Count 450 H MPV 7.4 Absolute Neuts (auto) 3.40 Absolute Lymphs (auto) 1.70 Absolute Monos (auto) 0.60 Absolute Eos (auto) 0.20 Absolute Basos (auto) 0.00 Neutrophils % 57.7 Lymphocytes % 28.2 Monocytes % 10.1 H Eosinophils % 3.7 Basophils % 0.3 Sodium 140 Potassium 4.0 Chloride 107 Carbon Dioxide 22 Anion Gap 15.0 BUN 6 L Creatinine 0.65 BUN/Creatinine Ratio 9.2 L Random Glucose 95 Serum Osmolality 276.8 Calcium 9.0 Departure - Departure Clinical Impression: Cellulitis of right breast Time of Disposition: 15:19 Disposition: Discharge to Home or Self Care Condition: Fair Departure Forms: ED Discharge - Pt. Copy, Patient Portal Self Enrollment Instructions: Cellulitis (Skin Infection), Adult (DC) Diet: resume usual diet Referrals: Venancio Santana MD [Primary Care Provider] - 1-2 Weeks Prescriptions: Acetaminophen W/ Codeine [Tylenol W/ CODEINE #3] 1 ea PO Q6H PRN 10 Days #10 PRN Reason: Pain Home Medications: Ambulatory Orders RX: Gabapentin [Neurontin] 600 mg PO QID 03/19/18 RX: Levothyroxine Sodium [Synthroid] 200 mcg PO DAILY 10/16/18 RX: Trazodone HCl [Trazodone Hydrochloride] 100 mg PO BEDTIME 03/19/18 RX: Promethazine Tab [Phenergan Tablet] 25 mg PO Q6H PRN 12/27/18 RX: Cyclobenzaprine HCl [Flexeril] 10 mg PO TID 02/26/19 Acetaminophen W/ Codeine [Tylenol W/ CODEINE #3] 1 ea PO Q6H PRN 10 Days #10 05/10/19 Additional Instructions: Follow up with your primary care doctor and with your surgeon in next 7-14 days is advised. Continue the antibiotics as prescribed. Continue ibuprofen 600-800 mg every 6-8 hours and/or tylenol 650 mg every 6 hours for pain. Continue your pain meds as prescribed for breakthrough pain.
--- NOTE | 2019-05-10 13:06 | RAD ---
EXAM: XR Chest, 2 Views CLINICAL HISTORY: s/p BL breast reduction, pain swelling R breast TECHNIQUE: Frontal and lateral views of the chest. COMPARISON: 04/20/2019. FINDINGS: Limitations: None. Lungs: Unremarkable. No consolidation. Pleural space: Unremarkable. No pneumothorax. Heart: Unremarkable. No cardiomegaly. Mediastinum: Unremarkable. Bones/joints: Unremarkable. Tubes, lines and devices: Stable dorsal column stimulator electrode. IMPRESSION: No abnormality noted. Electronically signed by: Rosa Santana MD 05/10/2019 1:04 PM [employer]
--- NOTE | 2019-05-10 15:15 | CT ---
EXAM DESCRIPTION: Chest w/Contrast CLINICAL HISTORY: 44 years Female right breast pain, swelling, induration COMPARISON: April 20, 2019. TECHNIQUE: Intravenous contrast enhanced axial scans of the chest were obtained. Sagittal and coronal reformatted images were performed. This exam was performed according to our departmental dose-optimization program, which includes automated exposure control, adjustment of the mA and/or kV according to patient size and/or use of iterative reconstruction technique. FINDINGS: The right breast is not completely included in the [id number], but there appears to be slightly increased nonspecific skin thickening in the visualized medial aspect of the right breast compared to the last exam. This needs to be correlated clinically regarding possible inflammatory or neoplastic etiology. There is no evidence of significant hilar or mediastinal lymph node enlargement or mass. Small nonspecific mediastinal nodes are visualized. There is no evidence of thoracic aortic aneurysm or dissection or obstructive change involving the superior vena cava or innominate veins. Central pulmonary arteries appear essentially unremarkable, although this study is not tailored for detailed evaluation of potential pulmonary emboli. The lungs appear basically clear. There is no evidence of pleural or pericardial effusion or pneumothorax. In general, no significant interval change is seen within the thoracic cavity. Note is again made of a spinal stimulator device in the thoracic region and chronic appearing anterior and left-sided vertebral wedging and lower endplate deformity of T8 with a separate small bony fragment. Below the diaphragm, there may be slight fatty infiltration of the liver, and there is a small right renal cyst. IMPRESSION: 1. Apparent slight nonspecific increase in skin thickening in the visualized medial aspect of the right breast, requiring clinical correlation. 2. Otherwise essentially unremarkable and stable CT appearance of the chest. Electronically signed by: Jameson Steele MD 05/10/2019 3:13 PM [facility] [[email or web address]]
[2019-05-10 18:24] VITALS: BP 149/89; TEMP 97; O2SAT 96
== END 2019-05-10 15:56 | disposition home or self-care (01) ==
LOC: ER 10:49
DX: N61.0 Mastitis without abscess (principal); Z98.890 Other specified postprocedural states; I10 Essential (primary) hypertension; E07.9 Disorder of thyroid, unspecified; K21.9 Gastro-esophageal reflux disease without esophagitis; Z87.891 Personal history of nicotine dependence; Z79.899 Other long term (current) drug therapy; Z79.82 Long term (current) use of aspirin
CPT/HCPCS: 36415; 71046; 71260; 80048; 85025; 96361; 96365; 96376; 99284; J2270; J7030

== ENCOUNTER 2019-05-13 23:02 | Emergency (ER) | payer OTHER ==
--- NOTE | 2019-05-14 00:24 | ED.PDOC ---
History of Present Illness - General Chief Complaint: Skin/Abrasion/Tear Stated Complaint: increased pain to right breast Time Seen by Provider: 05/13/19 23:19 Source: patient, RN notes reviewed, Vital Signs reviewed, EMS notes reviewed, old records - previous visits to the ED here Exam Limitations: no limitations - History of Present Illness Initial Comments: patient is a 44-year-old white female who presents wih complaints of right breast pain. Patient had breast surgery and number of months back and she has since had a number of infections and debridements on the breast tissue. Plastic surgeon's office this afternoon and he is trying to arrange for surgery in the next few days. Patient presents with complaints of worsening pain. Patient arrived by EMS. Fever though she states she has chills. The pain is burning in nature. It is 10 out of 10. It is worse with palpation. Nothing seems to make it better. She is taking Woodbine 03/06/25 without improvement. Severity: moderate Improving Factors: nothing Worsening Factors: other - palpation or movement Associated Symptoms: fever/chills - chills only Allergies/Adverse Reactions: Allergies Aspirin Allergy (Severe, Verified 07/08/18 13:50) Anaphylaxis Home Medications: Ambulatory Orders Gabapentin [Neurontin] 600 mg PO QID 03/19/18 Levothyroxine Sodium [Synthroid] 200 mcg PO DAILY 03/19/18 Trazodone HCl [Trazodone Hydrochloride] 100 mg PO BEDTIME 03/19/18 Promethazine Tab [Phenergan Tablet] 25 mg PO Q6H PRN 12/27/18 Cyclobenzaprine HCl [Flexeril] 10 mg PO TID 02/26/19 Acetaminophen W/ Codeine [Tylenol W/ CODEINE #3] 1 ea PO Q6H PRN 10 Days #10 05/10/19 Review of Systems - Review of Systems Constitutional: States: see HPI, chills EENTM: States: no symptoms reported Respiratory: States: no symptoms reported Cardiology: States: no symptoms reported Gastrointestinal/Abdominal: States: no symptoms reported Genitourinary: States: no symptoms reported Musculoskeletal: States: no symptoms reported Skin: States: see HPI, lesions Neurological: States: no symptoms reported Endocrine: States: no symptoms reported Hematologic/Lymphatic: States: no symptoms reported All other Systems: Reviewed and Negative Past Medical History (General) - Patient Medical History Hx Seizures: No Hx Stroke: No Hx Dementia: No Hx Asthma: No Hx of COPD: No Hx Cardiac Disorders: No Hx Congestive Heart Failure: No Hx Pacemaker: No Hx Hypertension: Yes Hx Thyroid Disease: Yes Hx Diabetes: No Hx Gastroesophageal Reflux: Yes Hx Renal Disease: No Hx Cancer: No Hx of HIV: No Hx Hepatitis C: No Hx MRSA: No MRSA Source:: Wound Surgical History: Hysterectomy, other - Vaccination History Hx Tetanus, Diphtheria Vaccination: Yes Hx Influenza Vaccination: No Hx Pneumococcal Vaccination: No Immunizations Up to Date: Yes - Social History Hx Tobacco Use: Yes Hx Chewing Tobacco Use: No Hx Alcohol Use: Yes Hx Substance Use: Yes - in the past Hx Substance Use Treatment: No Hx Depression: No Feels Threatened In Home Enviroment: No Feels Threatened In a Relationship: No Hx Physical Abuse: No Hx Emotional Abuse: No Hx Suspected Abuse: No - Activities of Daily Living Hospice Agency (if applicable):: None - Female History Patient is a Female of Child Bearing Age (10 -59 yrs old): No Patient : No - Triage Comment ED Triage Comment: has had hyst Family Medical History - Family History Father Age (years): 73 Living Status: Still Living Hx Family;Other: prostate CA and heart attact 2018 Mother Family History: No Known Name: Shari Murdock Age (years): 66 Living Status: Still Living Hx Family Asthma: No Hx Family Congestive Heart Failure: No Hx Family Hypertension: No Hx Family Stroke: No Hx Cardiac Disease: No Hx Family Diabetes: No Hx Family Cancer: No Hx Family;Other: Depression,back pain and spondilosis Physical Exam - Physical Exam General Appearance: Agitated, Alert, Anxious, Obvious distress, Well Developed, Well Groomed, Well Hydrated, Well Nourished Eye Exam: bilateral normal Ears, Nose, Throat: hearing grossly normal, normal ENT inspection, normal pharynx Neck: non-tender, full range of motion, supple, normal inspection Respiratory: lungs clear, normal breath sounds, no respiratory distress, no accessory muscle use Cardiovascular/Chest: normal peripheral pulses, regular rate, rhythm, no edema, no gallop, no JVD, no murmur Gastrointestinal/Abdominal: normal bowel sounds, non tender, soft, no organomegaly Back Exam: normal inspection, no CVA tenderness, no vertebral tenderness Extremity: normal range of motion, non-tender, normal inspection, no pedal edema 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 There are Prolene sutures still in place from previous debridement surgery. Lymphatic: no adenopathy Progress - Progress Progress: differential diagnosis: Cellulitis, abscess, drug-seeking behavior, necrotizing fasciitis among others. 05/14/19 00:32 Patient has been resting comfortably. Herabdomen unremarkable. She has no white count or left shift. Plan on discharge home with follow-up with her PCP or her plastic surgeon. I will not provide narcotic pain medication in the ED at this time as she has plenty of Woodbine 's. Discussed this plan of care with the patient. She is less than pleased that this outcome but accepts this decision. recommended close follow-up with her plastic surgeon in the morning. She voices understanding and agreement with that plan of care. Discharge at this time. Jl Armas M.D. #[id number] 05/14/19 00:43 - Results/Orders Results/Orders: Laboratory Results - last 24 hr 05/14/19 05/14/19 00:00 00:00 WBC 8.4 RBC 4.32 Hgb 13.8 Hct 40.9 MCV 94.5 MCH 31.9 H MCHC 33.8 RDW 14.7 H Plt Count 499 H MPV 7.4 Absolute Neuts (auto) 5.20 Absolute Lymphs (auto) 2.30 Absolute Monos (auto) 0.70 Absolute Eos (auto) 0.20 Absolute Basos (auto) 0.10 Neutrophils % 61.2 Lymphocytes % 26.7 Monocytes % 8.5 Eosinophils % 2.0 Basophils % 1.6 Sodium 140 Potassium 3.4 L Chloride 106 Carbon Dioxide 22 Anion Gap 15.4 BUN 8 Creatinine 0.55 L BUN/Creatinine Ratio 14.5 Random Glucose 118 H Serum Osmolality 278.8 Calcium 9.1 Departure - Departure Clinical Impression: Encounter for wound re-check Time of Disposition: 00:44 Disposition: Discharge to Home or Self Care Condition: Good Departure Forms: ED Discharge - Pt. Copy, Patient Portal Self Enrollment Instructions: Surgical Wound (DC) Referrals: Venancio Santana MD [Primary Care Provider] - 1-2 Days Home Medications: Ambulatory Orders Gabapentin [Neurontin] 600 mg PO QID 03/19/18 Levothyroxine Sodium [Synthroid] 200 mcg PO DAILY 03/19/18 Trazodone HCl [Trazodone Hydrochloride] 100 mg PO BEDTIME 03/19/18 Promethazine Tab [Phenergan Tablet] 25 mg PO Q6H PRN 12/27/18 Cyclobenzaprine HCl [Flexeril] 10 mg PO TID 02/26/19 Acetaminophen W/ Codeine [Tylenol W/ CODEINE #3] 1 ea PO Q6H PRN 10 Days #10 05/10/19
[2019-05-14 01:05] VITALS: O2SAT 95
[2019-05-14 01:07] VITALS: BP 124/82; TEMP 98
== END 2019-05-14 00:50 | disposition home or self-care (01) ==
LOC: ER 23:02
DX: N64.4 Mastodynia (principal); Z98.890 Other specified postprocedural states; I10 Essential (primary) hypertension; E07.9 Disorder of thyroid, unspecified; K21.9 Gastro-esophageal reflux disease without esophagitis; Z86.14 Personal history of Methicillin resistant Staphylococcus aureus infection; Z79.899 Other long term (current) drug therapy; Z87.891 Personal history of nicotine dependence

== ENCOUNTER 2019-06-24 12:51 | Emergency (ER) | payer OTHER ==
[2019-06-24 13:10] VITALS: TEMP 96.9
[2019-06-24] MEDS ORDERED: HYDROmorphone HCL INJ 2 MG/ML VIAL IM ONE (14:14)
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
[2019-06-24 16:22] VITALS: BP 121/81; O2SAT 96
== END 2019-06-24 15:20 | disposition home or self-care (01) ==
LOC: ER 12:51
DX: M54.5 Low back pain (principal); I10 Essential (primary) hypertension; E07.9 Disorder of thyroid, unspecified; K21.9 Gastro-esophageal reflux disease without esophagitis; E66.9 Obesity, unspecified; Z87.891 Personal history of nicotine dependence; Z79.899 Other long term (current) drug therapy; Z88.6 Allergy status to analgesic agent; Z68.36 Body mass index [BMI] 36.0-36.9, adult

== ENCOUNTER 2019-08-14 | Emergency (ER) | payer OTHER | END 2019-08-14 15:08 | disposition home or self-care (01) | DX: G89.18 Other acute postprocedural pain (principal); T81.31XA Disruption of external operation (surgical) wound, not elsewhere classified, initial encounter; I10 Essential (primary) hypertension; E07.9 Disorder of thyroid, unspecified; K21.9 Gastro-esophageal reflux disease without esophagitis; Y83.8 Other surgical procedures as the cause of abnormal reaction of the patient, or of later complication, without mention of misadventure at the time of the procedure; Z79.899 Other long term (current) drug therapy; Z88.6 Allergy status to analgesic agent; Z87.891 Personal history of nicotine dependence ==

== ENCOUNTER 2019-08-16 | Emergency (ER) | payer OTHER | END 2019-08-16 09:27 | disposition home or self-care (01) | DX: T81.31XA Disruption of external operation (surgical) wound, not elsewhere classified, initial encounter (principal); I10 Essential (primary) hypertension; E07.9 Disorder of thyroid, unspecified; K21.9 Gastro-esophageal reflux disease without esophagitis; Z88.8 Allergy status to other drugs, medicaments and biological substances; Z88.6 Allergy status to analgesic agent; Z79.899 Other long term (current) drug therapy; Z87.891 Personal history of nicotine dependence ==

== ENCOUNTER → 2019-09-12 | Outpatient (CLI) | payer OTHER | LOC: GMAM 11:52 | PROVIDERS: ATTEND Family Medicine | DX: E03.9 Hypothyroidism, unspecified (principal); E78.2 Mixed hyperlipidemia; R10.84 Generalized abdominal pain ==